=== PATIENT | female | born 1990 | race Caucasian/White ===

== ENCOUNTER 2016-07-15 11:33 | Inpatient (IN) | payer MEDICAID ==
[2016-07-15 12:16] LABS: APPEARANCE,URINE SLIGHTLY-CLOUDY; BILIRUBIN,URINE NEGATIVE (NEGATIVE); GLUCOSE, URINE NEGATIVE (NEGATIVE); KETONES,URINE NEGATIVE (NEGATIVE)
[2016-07-15 12:17] LABS: LEUKOCYTE ESTERASE,URINE NEGATIVE (NEGATIVE); NITRITE,URINE NEGATIVE (NEGATIVE); PROTEIN,URINE NEGATIVE (NEGATIVE); UROBILINOGEN,URINE NEGATIVE mg/dL (<2.0)
[2016-07-15 12:38] LABS: URINE BARBITURATES SCREEN NEGATIVE; URINE METHADONE SCREEN NEGATIVE; URINE OPIATES LOW NEGATIVE; URINE PHENCYCLIDINE SCREEN NEGATIVE
[2016-07-15] MEDS ORDERED: MAG HYDROX/AL HYDROX/SIMETH SUSP 30 ML UDCUP ONE ×2 (13:25→21:33)
[2016-07-15] MEDS ORDERED: RINGERS SOLUTION,LACTATED 300 ML IV ONE (14:52)
[2016-07-15] MEDS ORDERED: PENICILLIN G POTASSIUM 5,000,000 UNIT in DEXTROSE 5%-WATER 100 ML IV ONE (14:54)
[2016-07-15] MEDS ORDERED: OXYTOCIN/NORMAL SALINE 0 UNIT/0 ML RTUINJ ONE (14:55)
[2016-07-15] MEDS ORDERED: PENICILLIN G-K 5 MILLION UNIT VIAL ONE ×3 (14:55→21:33)
[2016-07-15] MEDS: RINGERS SOLUTION,LACTATED 1,000 ML IV PRN ×3 (16:04→20:23)
[2016-07-15] MEDS: OXYTOCIN/NORMAL SALINE 1,000 ML IV PRN ×2 (16:05→16:08)
[2016-07-15 16:23] LABS: ABSOLUTE LYMPHOCYTES (AUTO) 1.2 10^3/uL (0.5-4.7); ABSOLUTE MONOCYTES (AUTO) 1.1 10^3/uL (0.1-1.4); ABSOLUTE NEUT (AUTO) 14.4 10^3/uL (1.7-8.2); BASOPHILS % (AUTO) 0.2 % (0-2); HEMATOCRIT 30.5 % (36.0-47.0); HEMOGLOBIN 10.1 g/dL (12.0-15.5); HGB HCT DIFFERENCE -0.2; LYMPHOCYTES % (AUTO) 7.2 % (13-45); MEAN CORPUSCULAR HEMOGLOBIN 26.3 pg (27.0-33.4); MEAN CORPUSCULAR VOLUME 80 fl (80-97); MONOCYTES % (AUTO) 6.6 % (3-13); RED BLOOD COUNT 3.83 10^6/uL (3.72-5.28); RED CELL DISTRIBUTION WIDTH 16.2 % (11.5-14.0); WHITE BLOOD COUNT 16.8 10^3/uL (4.0-10.5)
--- NOTE | 2016-07-15 17:42 | L&D Progress Notes ---
PROGRESS NOTES Datetime Report Generated by CPN: 07/15/2016 17:41 PROGRESS NOTE Impression: Normal Progression of Labor Procedures: Artificial ROM Plan: Continue Present Management; Induction Informed Consent Obtained: Vaginal Delivery; Induction of Labor Vital Signs : Reviewed; Within Normal Limits Comment: 40+3ega here for IOL due to post ANTONIA and tachy with minimal variability and late decel on admission. Cvx on admission /-2. Gbs pos - next PCN due at 1900. She desires epidural. reviewed AROm with pt and pt agrees. AROM performed with clear fluid and cervical changed to 80/-1 noted. Continue with progression of labor. EFW approx 8# vtx with reassuring FWB. Anticipate VAGINAL EXAM Dilatation: 4 Dilatation: 3 Effacement: 80 Effacement: 80 Station: -1 Station: -2 Contractions: irregular MEMBRANES Pooling: Positive Membranes: Intact Amniotic Fluid Color: Clear FETUS A FHR - Baseline: 155 Monitoring: External US Variability: Moderate 6-25bpm Accelerations: 15X15 Decelerations: None FHR Category: Category I Estimated Weight (gm): 3400 Presentation: Vertex SIGNATURE SIGNATURE: [id number] Signature: Electronically signed by Audrey Hammond MD ([facility]) on 07/15/2016 at 17:41 with User ID: [email or web address]
[2016-07-15] MEDS ORDERED: PENICILLIN G-K 5 MILLION UNIT VIAL IV SCH (18:00)
--- NOTE | 2016-07-15 18:02 | L&D Current Admission ---
Current Admit Datetime Report Generated by CPN: 07/15/2016 18:00 ADMISSION INFORMATION Current Admit Date/Time: 07/15/2016 14:48 (07/15/2016 12:37:BRII Austin) Reason for Admission: Induction of Labor (07/15/2016 12:37:BRII Austin) Chief Complaint: Contractions; Other (Annotations: pain and pressure x 3 weeks worsen today beginning aroun 10 ) (07/15/2016 12:37:BRII Austin) Medications During : Vitamin (07/15/2016 12:37:BRII Austin) Meds During -Oth: ambien and buspar (07/15/2016 12:37:BRII Austin) EGA per Dates: 40.3 (07/15/2016 12:37:QS system process) Method of Arrival: Wheelchair (07/15/2016 12:37:BRII Austin) Records Available: Yes (07/15/2016 12:37:BRII Austin) General Admission Information: Reviewed; Updated; Confirmed (07/15/2016 12:37:BRII Austin) General Admission Reviewed By: Triny TERESA (07/15/2016 12:37:BRII Austin) BELONGINGS/ADVANCED DIRECTIVES Other Belongings: See [facility] Valuables consent (07/15/2016 12:37:BRII Austin) Disposition of Belongings: Kept with Patient (07/15/2016 12:37:BRII Austin) Durable Power of Merchandise Execution Leader: No (07/15/2016 12:37:BRII Austin) Living Will: No (07/15/2016 12:37:BRII Austin) Organ Donor: Yes (07/15/2016 12:37:BRII Austin) Pt Rights Information Given: Yes (07/15/2016 12:37:BRII Austin) Pt Understands Pt Rights: Yes (07/15/2016 12:37:BRII Austin) LEARNING ASSESSMENT Knowledge Level: Understands L_D Process; Understands Care Activities; Had Pre-Hospital Education (07/15/2016 12:37:BRII Austin) Barriers to Learning: None (07/15/2016 12:37:BRII Austin) Learning Readiness: Motivated (07/15/2016 12:37:BRII Austin) Learns Best By: 1 to 1 Instruction; Demonstration (07/15/2016 12:37:BRII Austin) Learning Needs: Labor and Delivery Process; Pain Management; Symptoms to Report; Treatment Plan; Medication; Diagnosis; Nutrition; Equipment; Infant Care; Community Resources; Other (07/15/2016 12:37:BRII Austin) Learning Assessment Comments: (07/15/2016 12:37:BRII Austin) DOMESTIC VIOLANCE SCREENING Dom Viol Threatened/Hurt: No (07/15/2016 12:37:BRII Austin) Hx of Abuse/Neglect past 2yrs: No (07/15/2016 12:37:BRII [place]) Feel Unsafe Going Home: No (07/15/2016 12:37:BRII Austin) Addt'l Observ Indicating Abuse: No (07/15/2016 12:37:BRII Austin) Reason Unable to Complete Screen: N/A, Screen Completed (07/15/2016 12:37:BRII Austin) Considered Personal Harm/Suicide: No (07/15/2016 12:37:BRII Austin) NUTRITIONAL/FUNCTIONAL SCREENING Problem with Appetite >5 Days: No (07/15/2016 12:37:BRII Austin) Chew/Swallow Difficulties: No (07/15/2016 12:37:BRII Austin) Inappropriate Wt Gain/Loss: No (07/15/2016 12:37:BRII Austin) Presence Skin Breakdown/Ulcer: No (07/15/2016 12:37:BRII Austin) Special Diet: No (07/15/2016 12:37:BRII Austin) Pt Requests Senior Technical Business Analyst Visit: No (07/15/2016 12:37:BRII Austin) Hx of Any of the Following?: N/A (07/15/2016 12:37:BRII Austin) New Diagnosis of: N/A (07/15/2016 12:37:BRII [place]) Requires Assist w/Ambulation: No (07/15/2016 12:37:BRII [place]) Uses Assist Device to Ambulate: No (07/15/2016 12:37:BRII [place]) Pt Requires Help w/ADL's: No (07/15/2016 12:37:BRII Austin)
--- NOTE | 2016-07-15 18:02 | L&D General Admission ---
General Admit Datetime Report Generated by CPN: 07/15/2016 18:00 INFORMATION Patient Age: 26 (05/11/2016 13:46:QS system process) EDC: 07/12/2016 00:00 (07/15/2016 12:02:BRII Austin) : 2 (07/15/2016 12:02:BRII Austin) Para: 1 (07/15/2016 12:02:BRII Austin) Term: 1 (07/15/2016 12:02:BRII Austin) Livin (07/15/2016 12:02:BRII Austin) Cesareans: 0 (07/15/2016 12:02:BRII Austin) VBACs: 0 (07/15/2016 12:02:BRII Austin) Ectopic: 0 (07/15/2016 12:02:BRII Austin) Multiple Births: 0 (07/15/2016 12:02:BRII Austin) Baby, Number in Womb: 1 (07/15/2016 12:02:Triny Camp, RNC) CARE Primary Floor Broker: [facility] (07/15/2016 12:02:Triny Camp, RN) Month of 1st Visit: december (07/15/2016 12:02:Triny Camp, RNC) Adequate Care: Yes (07/15/2016 12:02:Triny Camp, RNC) Prepregnancy Weight (lb): 208 (07/15/2016 12:02:Triny Camp, RN) Prepregnancy Weight (kg): 94.5 (07/15/2016 12:02:QS system process) Height (in): 60 (07/15/2016 13:12:QS system process) ALLERGIES Medication Allergy: No (07/15/2016 12:02:Triny Camp, RNC) Medication Allergies: No Known Allergies (07/15/2016) (07/15/2016 13:12:QS system process) Latex Allergy: No Latex Allergies (07/15/2016 12:02:Triny Camp, RNC) COMMUNICATION Primary Language: Malian (07/15/2016 12:02:Triny Camp, [facility]) Medical Tx Preferred Language: Malian (07/15/2016 12:02:Triny Camp, RN) Communication Barrier(s): None (07/15/2016 12:02:Triny Camp, [facility]) DEMOGRAPHICS Address: [address] [place] [id number] (05/11/2016 13:46:QS system process) Zipcode: [address] (05/11/2016 13:46:QS system process) Home (05/11/2016 13:46:QS system process) Work (05/11/2016 13:46:QS system process) N: [phone] (05/11/2016 13:46:QS system process) Next of Kin Name: BISMARK RINCON (05/11/2016 13:46:QS system process) Next of Kin (05/11/2016 13:46:QS system process) Next of Kin Relationship: SPO (05/11/2016 13:46:QS system process) Date of : 1990 (05/11/2016 13:46:QS system process) Marital Status: Single (05/11/2016 13:46:QS system process) Sex: Female (05/11/2016 13:46:QS system process) Occupation: Other (07/15/2016 12:02:[facility], [facility]) Race: (05/11/2016 13:46:QS system process) Ethnicity: Non- or (05/11/2016 13:46:QS system process) Evangelical: None (05/11/2016 13:46:QS system process) Education: 12 (07/15/2016 12:02:[facility]) FOB Involved: N/A (07/15/2016 12:02:[facility]) Father of Baby Name: Temple (07/15/2016 12:02:[facility]) DRUG AND ALCOHOL USE Alcohol: No (07/15/2016 12:02:[facility], [facility]) Cigarettes: Never Smoker. [id number] (07/15/2016 12:02:[facility], [facility]) Marijuana: No (07/15/2016 12:02:[facility], [facility]) Cocaine: No (07/15/2016 12:02:[facility], [facility]) Other Illicit Drugs: No (07/15/2016 12:02:[facility], [facility]) VACCINE HISTORY Influenza Vaccine: Yes (07/15/2016 12:02:BRII Austin) Pneumococcal Vaccine: No (07/15/2016 12:02:BRII Austin) Tetanus Vaccine: Yes (07/15/2016 12:02:BRII Austin) Tdap Vaccine: Yes (07/15/2016 12:02:BRII Austin) Hepatitis B Vaccine: Uncertain (07/15/2016 12:02:BRII Austin) Animal Pathologist: [facility] (07/15/2016 12:02:BRII Austin) Feeding Preference: Breast (07/15/2016 12:02:BRII Austin) Benefit of Breast Feed Discussed: Yes (07/15/2016 12:02:BRII Austin) Circumcision: N/A (07/15/2016 12:02:BRII Austin) Classes Attended: No (07/15/2016 12:02:BRII Austin) Tubal Ligation: No (07/15/2016 12:02:BRII Austin) Tubal Authorization Signed: N/A (07/15/2016 12:02:BRII Austin) Consent: N/A (07/15/2016 12:02:BRII Austin) Consent Signed: N/A (07/15/2016 12:02:BRII Austin) Pain Management Plans: Epidural (07/15/2016 12:02:BRII Austin) Plans for Labor and Delivery: None (07/15/2016 12:02:BRII Austin) Support Person: Bismark Rincon (07/15/2016 12:02:BRII Austin) Support Person Relationship: (07/15/2016 12:02:BRII Austin) Cultural/Spritual Practice: No (07/15/2016 12:02:BRII Austin) Spir/Cult Dietary Needs: No (07/15/2016 12:02:BRII Austin) LIVING SITUATION/DISCHARGE PLAN Living Arrangements: House (07/15/2016 12:02:BRII Austin) Adequate Access to:: Electric; Heat; Refrigeration; Plumbing/Running water; Phone; Transportation (07/15/2016 12:02:BRII Austin) WIC Program: Yes (07/15/2016 12:02:BRII Austin) Discharge Construction Job Titles Person: Bess Stanton (07/15/2016 12:02:BRII [place]) Person to Help after Discharge: Bess Stanton (07/15/2016 12:02:BRII [place]) Currently Using Commun Resources: Yes (07/15/2016 12:02:BRII Austin) Specify Current Resource Used: Medicaid, WIC (07/15/2016 12:02:BRII Austin) Outside Agency/Air Conditioning Service Technician: No (07/15/2016 12:02:BRII Austin) Car Seat for Discharge: Yes (07/15/2016 12:02:BRII uAstin) Adoption Requested: No (07/15/2016 12:02:BRII Austin) Pt Contact w/ Post : N/A (07/15/2016 12:02:BRII Austin) LABS Blood Type: O Positive (07/15/2016 12:02:Rica Patton RN) Hemoglobin: 10.1 L (07/15/2016 15:51:QS system process) Hematocrit: 30.5 L (07/15/2016 15:51:QS system process) MCV: 80 (07/15/2016 15:51:QS system process) Group Beta Strep: positive (07/15/2016 12:02:Rica Patton RN) Gonorrhea: Negative (07/15/2016 12:02:Rica Patton RN) Chlamydia: Negative (Annotations: Data stored by CPN on behalf of user) (07/15/2016 12:02:Rica Patton RN) RPR/VDRL: Nonreactive (07/15/2016 12:02:Rica Patton RN) Hepatitis B: Negative (07/15/2016 12:02:Rica Patton RN) Rubella: Immune (07/15/2016 12:02:Rica Patton RN) OB/PREVIOUS HISTORY Previous Procedures: Ultrasound; NST (07/15/2016 12:02:BRII Austin) Current Procedures: Ultrasound; NST (07/15/2016 12:02:BRII Austin) History of Previous : No (07/15/2016 12:02:BRII Austin) History of Gestational Diabetes: No (07/15/2016 12:02:BRII Austin) History of PIH: No (07/15/2016 12:02:BRII Austin) History of Incompetent Cervix: No (07/15/2016 12:02:BRII Austin) History of Placenta Previa/Abrup: No (07/15/2016 12:02:BRII Austin) History of Macrosomia: No (07/15/2016 12:02:BRII Austin) History of IUGR: No (07/15/2016 12:02:BRII Austin) History of Hemorrhage: No (07/15/2016 12:02:BRII Austin) History of Loss/Stillborn: No (07/15/2016 12:02:BRII Austin) History of : No (07/15/2016 12:02:BRII Austin) History of D (Rh) Sensitization: No (07/15/2016 12:02:BRII [place]) History Recurrent Loss/Stillborn: No (07/15/2016 12:02:BRII Austin) History Depression/PP Depression: Yes (07/15/2016 12:02:BRII Austin) History of Uterine Anomaly/JUAN PABLO: No (07/15/2016 12:02:BRII Austin) History of Infertility: No (07/15/2016 12:02:BRII [place]) History of ART Treatment: No (07/15/2016 12:02:BRII Austin) History of JUAN PABLO: No (07/15/2016 12:02:BRII Austin) Comments Obstetrical History: G1- 2008 male pp depression G2- no complaints (07/15/2016 12:02:BRII Austin) MEDICAL HISTORY Med Hx Diabetes: No (07/15/2016 12:02:BRII [place]) Med Hx Hypertension: No (07/15/2016 12:02:BRII [place]) Med Hx Heart Disease: No (07/15/2016 12:02:BRII [place]) Med Hx Autoimmune Disorder: No (07/15/2016 12:02:BRII Austin) Med Hx Kidney Disease/UTI: No (07/15/2016 12:02:BRII Austin) Med Hx Neurologic/Epilepsy: No (07/15/2016 12:02:BRII Ausitn) Med Hx Psychiatric Disorders: Yes (07/15/2016 12:02:BRII [place]) Med Hx Hepatitis/Liver Disease: No (07/15/2016 12:02:BRII Austin) Med Hx Varicosities/Phlebitis: No (07/15/2016 12:02:BRII Austin) Med Hx Thyroid Dysfunction: No (07/15/2016 12:02:BRII Austin) Med Hx Trauma/Violence: No (07/15/2016 12:02:BRII Austin) Med Hx Blood Transfusion: No (07/15/2016 12:02:BRII Austin) Med Hx Pulmonary (Asthma,TB): No (07/15/2016 12:02:BRII Austin) Med Hx Breast: No (07/15/2016 12:02:BRII Austin) Med Hx SERVICE OFFICER Surgery: No (07/15/2016 12:02:BRII Austin) Med Hx Hospitalization/Surgery: Yes (07/15/2016 12:02:BRII Austin) Med Hx Anesthetic Complications: No (07/15/2016 12:02:BRII Austin) Med Hx Abnormal Pap Smear: No (07/15/2016 12:02:BRII [place]) Other Medical Diseases: No (07/15/2016 12:02:BRII [place]) Med Hx Significant Family Hx: No (07/15/2016 12:02:BRII Austin) Details of Med/Surg Hx: Bowel blockage with appendectomy 1997 (07/15/2016 12:02:BRII Austin) INFECTIOUS HISTORY Inf Hx Gonorrhea: No (07/15/2016 12:02:BRII [place]) Inf Hx Chlamydia: No (07/15/2016 12:02:BRII Austin) Inf Hx Syphilis: No (07/15/2016 12:02:BRII Austin) Inf Hx HIV/AIDS: No (07/15/2016 12:02:BRII Austin) Inf Hx Human Papilloma Virus: No (07/15/2016 12:02:BRII Austin) Inf Hx Pt/Partner Genital Herpes: No (07/15/2016 12:02:BRII Austin) Inf Hx Tuberculosis/Exposure: No (07/15/2016 12:02:BRII Austin) Inf Hx Hepatitis B,C: No (07/15/2016 12:02:BRII Austin) Inf Hx Rash or Viral Illness: No (07/15/2016 12:02:BRII Austin) GENETIC HISTORY Gen Hx Age >=35 at ANTONIA: No (07/15/2016 12:02:BRII Austin) Gen Hx Thalassemia: No (07/15/2016 12:02:BRII Austin) Gen Hx Congenital Heart Defect: No (07/15/2016 12:02:Triny Torres RNC) Gen Hx Neural Tube Defect: No (07/15/2016 12:02:Triny Torres RNC) Gen Hx Down's Syndrome: No (07/15/2016 12:02:Triny Torres RNC) Gen Hx Xavier-Sachs: No (07/15/2016 12:02:Triny Torres RNC) Gen Hx Shailesh: No (07/15/2016 12:02:BRII [place]) Gen Hx Familial Dysautonomia: No (07/15/2016 12:02:Triny Torres RNC) Gen Hx Sickle Cell Disease/Trait: No (07/15/2016 12:02:Triny Torres RNC) Gen Hx Hemophilia/Blood Disorder: No (07/15/2016 12:02:Triny Torres RNC) Gen Hx Muscular Dystrophy: No (07/15/2016 12:02:Triny Torres RNC) Gen Hx Cystic Fibrosis: No (07/15/2016 12:02:BRII [place]) Gen Hx Huntingtons Chorea: No (07/15/2016 12:02:Triny Camp, RNC) Gen Hx Mental Retardation/Autism: No (07/15/2016 12:02:BRII [place]) Gen Hx Tested for Fragile X: No (07/15/2016 12:02:BRII [place]) Gen Hx Other Inher/Chromosomal: No (07/15/2016 12:02:BRII [place]) Gen Hx Maternal Metabolic DO: No (07/15/2016 12:02:BRII Austin) Gen Hx Pt Father or FOB Defect: No (07/15/2016 12:02:BRII [place]) Gen Hx Other Genetic History: No (07/15/2016 12:02:BRII Austin) Gen Hx Drugs/Meds since LMP: No (07/15/2016 12:02:BRII Austin)
[2016-07-15] MEDS ORDERED: EPHEDRINE SULFATE INJ 50 MG/1 ML AMPULE ONE (18:15)
[2016-07-15] MEDS ORDERED: FENTANYL/BUPIVACAINE/NS/PF 200 MCG/100 ML RTUINJ EPI ONE (18:16)
[2016-07-15] MEDS ORDERED: BUPIVACAINE HCL 0.25 % INJ/PF (2.5 MG/1 ML) 30 ML VIAL ONE (18:16)
[2016-07-15] MEDS ORDERED: PENICILLIN G POTASSIUM 2,500,000 UNIT in DEXTROSE 5%-WATER 50 ML IV SCH (18:55)
--- NOTE | 2016-07-15 20:02 | L&D Flow Sheet ---
LD Flowsheet Datetime Report Generated by CPN: 07/15/2016 20:00 Datetime: 07/15/2016 19:56 Pulse: 112 (QS system process) SpO2 (%): 100 (QS system process) LaborFlag: Antepartum (QS system process) Datetime: 07/15/2016 19:51 Pulse: 100 (QS system process) SpO2 (%): 100 (QS system process) LaborFlag: Antepartum (QS system process) Datetime: 07/15/2016 19:46 Pulse: 99 (QS system process) SpO2 (%): 100 (QS system process) Medications Pitocin (milliunit): Pitocin Increased to (milliunits) @ 10 (Gladis Newell, RN) LaborFlag: Antepartum (QS system process) Datetime: 07/15/2016 19:45 Pulse: 93 (QS system process) SpO2 (%): 92 (QS system process) LaborFlag: Antepartum (QS system process) Datetime: 07/15/2016 19:41 Pulse: 122 (QS system process) SpO2 (%): 100 (QS system process) LaborFlag: Antepartum (QS system process) Datetime: 07/15/2016 19:38 Pulse: 124 (QS system process) SpO2 (%): 90 (QS system process) LaborFlag: Antepartum (QS system process) Datetime: 07/15/2016 19:37 NBP Sys/Trina/Mean (mmHg): 137 (QS system process) : 60 (QS system process) : 87 (QS system process) Pulse: 133 (QS system process) LaborFlag: Antepartum (QS system process) Datetime: 07/15/2016 19:36 NBP Sys/Trina/Mean (mmHg): 121 (QS system process) : 60 (QS system process) : 85 (QS system process) Pulse: 107 (QS system process) Pulse: 93 (QS system process) SpO2 (%): 100 (QS system process) Communication Comments: report given to Bette Newell RN. Care relinquished (Rica Patton RN) LaborFlag: Antepartum (QS system process) Datetime: 07/15/2016 19:35 NBP Sys/Trina/Mean (mmHg): 123 (QS system process) : 58 (QS system process) : 83 (QS system process) Pulse: 90 (QS system process) I/O Interventions: Ward Cath Inserted (Rica Patton RN) LaborFlag: Antepartum (QS system process) Datetime: 07/15/2016 19:32 NBP Sys/Trina/Mean (mmHg): 121 (QS system process) : 61 (QS system process) : 85 (QS system process) Pulse: 91 (QS system process) LaborFlag: Antepartum (QS system process) Datetime: 07/15/2016 19:31 NBP Sys/Trina/Mean (mmHg): 121 (QS system process) : 62 (QS system process) : 84 (QS system process) Pulse: 97 (QS system process) Pulse: 84 (QS system process) SpO2 (%): 100 (QS system process) Communication Comments: no new orders received (Rica Patton RN) LaborFlag: Antepartum (QS system process) Datetime: 07/15/2016 19:28 NBP Sys/Trina/Mean (mmHg): 85 (QS system process) : 47 (QS system process) : 57 (QS system process) Pulse: 139 (QS system process) Communication Comments: Dr. Hammond at bedside (Rica Patton RN) LaborFlag: Antepartum (QS system process) Datetime: 07/15/2016 19:27 NBP Sys/Trina/Mean (mmHg): 83 (QS system process) : 49 (QS system process) : 62 (QS system process) Pulse: 137 (QS system process) LaborFlag: Antepartum (QS system process) Datetime: 07/15/2016 19:26 Pulse: 157 (QS system process) SpO2 (%): 100 (QS system process) LaborFlag: Antepartum (QS system process) Datetime: 07/15/2016 19:25 NBP Sys/Trina/Mean (mmHg): 92 (QS system process) : 53 (QS system process) : 69 (QS system process) Pulse: 131 (QS system process) LaborFlag: Antepartum (QS system process) Datetime: 07/15/2016 19:24 NBP Sys/Trina/Mean (mmHg): 100 (QS system process) : 49 (QS system process) : 70 (QS system process) Pulse: 141 (QS system process) LaborFlag: Antepartum (QS system process) Datetime: 07/15/2016 19:23 NBP Sys/Trina/Mean (mmHg): 109 (QS system process) NBP Sys/Trina/Mean (mmHg): 59 (QS system process) : 49 (QS system process) : 36 (QS system process) : 71 (QS system process) : 42 (QS system process) Pulse: 114 (QS system process) Pulse: 151 (QS system process) LaborFlag: Antepartum (QS system process) Datetime: 07/15/2016 19:21 NBP Sys/Trina/Mean (mmHg): 95 (QS system process) : 53 (QS system process) : 71 (QS system process) Pulse: 126 (QS system process) Pulse: 131 (QS system process) SpO2 (%): 100 (QS system process) LaborFlag: Antepartum (QS system process) Datetime: 07/15/2016 19:20 NBP Sys/Trina/Mean (mmHg): 79 (QS system process) : 41 (QS system process) : 56 (QS system process) Pulse: 142 (QS system process) Communication Comments: patient has increased pulse, asymptomatic (Rica Patton RN) LaborFlag: Antepartum (QS system process) Datetime: 07/15/2016 19:19 NBP Sys/Trina/Mean (mmHg): 93 (QS system process) : 55 (QS system process) : 68 (QS system process) Pulse: 133 (QS system process) LaborFlag: Antepartum (QS system process) Datetime: 07/15/2016:17 Patient Position/Activity: Right Tilt (Rica Patton, RAJ) Datetime: 07/15/2016 19:16 Pulse: 167 (QS system process) SpO2 (%): 99 (QS system process) Epidural Procedure Other: Pump Started (Rica Patton RN) LaborFlag: Antepartum (QS system process) Datetime: 07/15/2016 19:15 Uterine Activity Monitor Mode: External; Palpation (Rica Patton, RAJ) Frequency (min): 2-3 (Rica Patton RN) Quality: Mild/Moderate (Rica Patton, RN) Duration (sec): 60-70 (Rica Patton, RN) Duration Criteria: Less than Two 120 Second Contractions (Rica Patton, RAJ) Pattern: Normal: <= 5 Contractions in 10 Minutes (Rica Patton RN) Resting Tone (Palpate): Relaxed (Rica Patton, RN) Assessment A Monitor Mode: External US (Rica Patton, RN) FHR Baseline Rate : 155 (Rica Patton, RN) FHR Baseline Changes: No Baseline Change (Rica Abdi, RN) Variability: Moderate 6-25 bpm (Rica Abdi, RN) Accelerations: 15X15 (Rica Abdi, RN) Decelerations: None (Rica Abdi, RN) Datetime: 07/15/2016 19:14 NBP Sys/Trina/Mean (mmHg): 137 (QS system process) : 80 (QS system process) : 98 (QS system process) LaborFlag: Antepartum (QS system process) Datetime: 07/15/2016 19:13 NBP Sys/Trina/Mean (mmHg): 136 (QS system process) : 68 (QS system process) : 94 (QS system process) Pulse: 100 (QS system process) LaborFlag: Antepartum (QS system process) Datetime: 07/15/2016 19:12 Epidural Procedure: Cath Placed; Loading Dose (Rica Abdi, RN) Datetime: 07/15/2016 19:11 NBP Sys/Trina/Mean (mmHg): 141 (QS system process) : 80 (QS system process) : 104 (QS system process) Pulse: 111 (QS system process) Pulse: 106 (QS system process) SpO2 (%): 100 (QS system process) Epidural Procedure: Test Dose (Rica Patton, RN) LaborFlag: Antepartum (QS system process) Datetime: 07/15/2016 19:08 NBP Sys/Trina/Mean (mmHg): 138 (QS system process) : 80 (QS system process) : 102 (QS system process) Pulse: 110 (QS system process) LaborFlag: Antepartum (QS system process) Datetime: 07/15/2016 19:06 Pulse: 98 (QS system process) SpO2 (%): 99 (QS system process) LaborFlag: Antepartum (QS system process) Datetime: 07/15/2016 19:01 Pulse: 105 (QS system process) SpO2 (%): 99 (QS system process) Anesthesia Comments: Dr. Castillo at bedside (Rica Patton RN) LaborFlag: Antepartum (QS system process) Datetime: 07/15/2016 19:00 Uterine Activity Monitor Mode: External; Palpation (Rica Patton, RN) Frequency (min): 1.5-2 (Rica Abdi, RN) Quality: Mild/Moderate (Rica Abdi, RN) Duration (sec): 60-70 (Rica Abdi, RN) Duration Criteria: Less than Two 120 Second Contractions (Rica Abdi, RN) Pattern: Normal: <= 5 Contractions in 10 Minutes (Rica Abdi, RN) Resting Tone (Palpate): Relaxed (Rica Abdi, RN) Assessment A Monitor Mode: External US (Rica Patton, RN) FHR Baseline Rate : 155 (Ricaleon Patton, RN) FHR Baseline Changes: No Baseline Change (Rica Abdi, RN) Variability: Moderate 6-25 bpm (Rica Abdi, RN) Accelerations: 15X15 (Rica Abdi, RN) Decelerations: None (Rica Abdi, RN) Medications Pitocin (milliunit): Pitocin Remains (milliunits) @ (Annotations: 8) (Rica Abdi, RN) Datetime: 07/15/2016 18:56 Pulse: 102 (QS system process) SpO2 (%): 98 (QS system process) LaborFlag: Antepartum (QS system process) Datetime: 07/15/2016 18:55 Pulse: 202 (QS system process) SpO2 (%): 69 (QS system process) LaborFlag: Antepartum (QS system process) Datetime: 07/15/2016 18:54 NBP Sys/Trina/Mean (mmHg): 135 (QS system process) : 65 (QS system process) : 92 (QS system process) Pulse: 104 (QS system process) LaborFlag: Antepartum (QS system process) Datetime: 07/15/2016 18:53 Anesthesia Comments: sitting for epidural (Rica Abdi, RN) Datetime: 07/15/2016 18:52 Procedure TIME OUT Procedure Verify: Correct Patient Identity; Correct Side and Site are Marked; Accurate Procedure Consent Form; Agreement on Procedure to be Done; Correct Patient Position; Relevant Images and Results are Properly Labeled and Displayed; Addressed Need to Administer Antibiotics or Fluids for Irrigation; Safety Precautions Based on Patient History or Medication Use (Rica Patton RN) Anesthesia Anesthesia Plans: Epidural (Rica Patton, RN) Datetime: 07/15/2016 18:48 Anesthesia Comments: Dr. Anna notified of patient's request for epidural (Rica Patton, RN) Datetime: 07/15/2016 18:45 Uterine Activity Monitor Mode: External; Palpation (Rica Abdi, RN) Frequency (min): 2 (Rica Abdi, RN) Quality: Mild/Moderate (Rica Abdi, RN) Duration (sec): 50-60 (Rica Abdi, RN) Duration Criteria: Less than Two 120 Second Contractions (Rica Abdi, RN) Pattern: Normal: <= 5 Contractions in 10 Minutes (Rica Abdi, RN) Resting Tone (Palpate): Relaxed (Rica Abdi, RN) Assessment A Monitor Mode: External US (Rica Patton, RN) FHR Baseline Rate : 155 (Rica Patton RN) FHR Baseline Changes: No Baseline Change (Rica Patton RN) Variability: Moderate 6-25 bpm (Rica Patton, RN) Accelerations: 15X15 (Rica Patton RN) Decelerations: None (Rica Patton, RN) Medications Pitocin (milliunit): Pitocin Remains (milliunits) @ (Annotations: 8) (Rica Patton, RN) Datetime: 07/15/2016 18:38 NBP Sys/Trina/Mean (mmHg): 136 (QS system process) : 59 (QS system process) : 85 (QS system process) Pulse: 93 (QS system process) Antibiotics: Penicillin IV (Units) @ 2,500,000 (Rica Patton RN) LaborFlag: Antepartum (QS system process) Datetime: 07/15/2016 18:30 Uterine Activity Monitor Mode: External; Palpation (Rica Patton, RN) Frequency (min): 2-4 (Rica Patton, RN) Quality: Mild/Moderate (Rica Abdi, RN) Duration (sec): 50-70 (Rica Patton, RN) Duration Criteria: Less than Two 120 Second Contractions (Rica Abdi, RN) Pattern: Normal: <= 5 Contractions in 10 Minutes (Rica Patton, RN) Resting Tone (Palpate): Relaxed (Rica Abdi, RN) Assessment A Monitor Mode: External US (Rica Patton, RN) FHR Baseline Rate : 150 (Rica Patton, RN) FHR Baseline Changes: No Baseline Change (Rica Patton, RN) Variability: Moderate 6-25 bpm (Ricaleon Patton, RN) Accelerations: 15X15 (Rica Abdi, RN) Decelerations: None (Rica Patton, RN) Medications Pitocin (milliunit): Pitocin Remains (milliunits) @ (Annotations: 8) (Rica Patton, RN) Datetime: 07/15/2016 18:15 Uterine Activity Monitor Mode: External; Palpation (Rica Patton RN) Frequency (min): 2-3 (Rica Patton RN) Quality: Mild/Moderate (Rica Abdi, RN) Duration (sec): 50-70 (Rica Patton, RN) Duration Criteria: Less than Two 120 Second Contractions (Rica Patton, RN) Pattern: Normal: <= 5 Contractions in 10 Minutes (Rica Patton, RN) Resting Tone (Palpate): Relaxed (Rica Patton, RN) Assessment A Monitor Mode: External US (Rica Patton, RN) FHR Baseline Rate : 150 (Rica Patton, RN) FHR Baseline Changes: No Baseline Change (Rica Patton, RN) Variability: Moderate 6-25 bpm (Rica Patton, RN) Accelerations: 15X15 (Rica Abdi, RN) Decelerations: None (Rica Abdi, RN) Medications Pitocin (milliunit): Pitocin Remains (milliunits) @ (Annotations: 8) (Rica Patton, RN) Datetime: 07/15/2016 18:08 NBP Sys/Trina/Mean (mmHg): 122 (QS system process) : 72 (QS system process) : 88 (QS system process) Pulse: 75 (QS system process) LaborFlag: Antepartum (QS system process) Datetime: 07/15/2016 18:00 Uterine Activity Monitor Mode: External; Palpation (Rica Patton RN) Frequency (min): 2-2.5 (Rica Patton RN) Quality: Mild/Moderate (Rica Patton RN) Duration (sec): 60-70 (Rica Patton RN) Duration Criteria: Less than Two 120 Second Contractions (Rica Patton RN) Pattern: Normal: <= 5 Contractions in 10 Minutes (Rica Patton RN) Resting Tone (Palpate): Relaxed (Rica Abdi, RN) Assessment A Monitor Mode: External US (Rica Abdi, RN) FHR Baseline Rate : 150 (Rica Patton, RN) FHR Baseline Changes: No Baseline Change (Rica Abdi, RN) Variability: Moderate 6-25 bpm (Rica Abdi, RN) Accelerations: 15X15 (Rica Abdi, RN) Decelerations: None (Rica Abdi, RN) Medications Pitocin (milliunit): Pitocin Increased to (milliunits) @ (Annotations: 8) (Rica Abdi, RN) Datetime: 07/15/2016 17:58 Hygiene: Underpad Changed (Rica Abdi, RN) Datetime: 07/15/2016 17:54 NBP Sys/Trina/Mean (mmHg): 114 (QS system process) : 70 (QS system process) : 86 (QS system process) Pulse: 94 (QS system process) LaborFlag: Antepartum (QS system process) Datetime: 07/15/2016 17:45 Uterine Activity Monitor Mode: External; Palpation (Rica Abdi, RN) Frequency (min): 2-4.5 (Rica Abdi, RN) Quality: Mild/Moderate (Rica Abdi, RN) Duration (sec): 60-70 (Rica Abdi, RN) Duration Criteria: Less than Two 120 Second Contractions (Rica Abdi, RN) Pattern: Normal: <= 5 Contractions in 10 Minutes (Rica Abdi, RN) Resting Tone (Palpate): Relaxed (Rica Abdi, RN) Assessment A Monitor Mode: External US (Rica Abdi, RN) FHR Baseline Rate : 150 (Rica Abdi, RN) FHR Baseline Changes: No Baseline Change (Rica Abdi, RN) Variability: Moderate 6-25 bpm (Rica Abdi, RN) Accelerations: 15X15 (Rica Abdi, RN) Decelerations: None (Rica Abdi, RN) Medications Pitocin (milliunit): Pitocin Remains (milliunits) @ (Annotations: 6) (Rica Abdi, RN) Datetime: 07/15/2016 17:40 Anesthesia Comments: bolus opened for patient's epidural (Rica Abdi, RN) Datetime: 07/15/2016 17:39 NBP Sys/Trina/Mean (mmHg): 130 (QS system process) : 80 (QS system process) : 96 (QS system process) Pulse: 97 (QS system process) LaborFlag: Antepartum (QS system process) Datetime: 07/15/2016 17:35 Vaginal Exam Dilatation (cm): 4.0 (Rica Patton RN) Effacement (%): 80 (Rica Patton RN) Station: -1 (Rica Patton RN) Exam by: Dr. Hammond (Rica Patton RN) Membrane Status: Ruptured (Rica Patton RN) Membranes Rupture Method: Artificial (Rica Patton RN) Amniotic Fluid Color: Clear (Rica Patton RN) Amniotic Fluid Amount: Small (Rica Patton RN) Vaginal Bleeding: None (Rica Patton RN) Cervix, Consistency: Soft (Rica Patton RN) Cervix, Position: Midposition (Rica Patton RN) Datetime: 07/15/2016 17:30 Uterine Activity Monitor Mode: External; Palpation (Rica Abdi, RN) Frequency (min): 2-3.5 (Rica Abdi, RN) Quality: Mild/Moderate (Rica Abdi, RN) Duration (sec): 50-70 (Rica Abdi, RN) Duration Criteria: Less than Two 120 Second Contractions (Rica Abdi, RN) Pattern: Normal: <= 5 Contractions in 10 Minutes (Rica Abdi, RN) Resting Tone (Palpate): Relaxed (Rica Abdi, RN) Assessment A Monitor Mode: External US (Rica Abdi, RN) FHR Baseline Rate : 150 (Rica Abdi, RN) FHR Baseline Changes: No Baseline Change (Rica Abdi, RN) Variability: Moderate 6-25 bpm (Rica Abdi, RN) Accelerations: 15X15 (Rica Abdi, RN) Decelerations: None (Rica Abdi, RN) Medications Pitocin (milliunit): Pitocin Remains (milliunits) @ (Annotations: 6) (Rica Abdi, RN) Datetime: 07/15/2016 17:24 NBP Sys/Trina/Mean (mmHg): 115 (QS system process) : 62 (QS system process) : 81 (QS system process) Pulse: 89 (QS system process) LaborFlag: Antepartum (QS system process) Datetime: 07/15/2016 17:15 Uterine Activity Monitor Mode: External; Palpation (Rica Patton RN) Frequency (min): 2.5-3 (Rica Patton RN) Quality: Mild/Moderate (Rica Patton RN) Duration (sec): 50-70 (Rica Patton, RN) Duration Criteria: Less than Two 120 Second Contractions (Rica Patton, RN) Pattern: Normal: <= 5 Contractions in 10 Minutes (Rica Patton, RN) Resting Tone (Palpate): Relaxed (Rica Patton, RN) Assessment A Monitor Mode: External US (Rica Patton, RN) FHR Baseline Rate : 145 (Rica Patton, RN) FHR Baseline Changes: No Baseline Change (Rica Patton, RN) Variability: Moderate 6-25 bpm (Rica Patton, RN) Accelerations: 15X15 (Rica Patton, RN) Decelerations: None (Rica Patton, RN) Medications Pitocin (milliunit): Pitocin Remains (milliunits) @ (Annotations: 6) (Rica Patton, RN) Datetime: 07/15/2016 17:09 NBP Sys/Trina/Mean (mmHg): 125 (QS system process) : 77 (QS system process) : 94 (QS system process) Pulse: 93 (QS system process) LaborFlag: Antepartum (QS system process) Datetime: 07/15/2016 17:00 Uterine Activity Monitor Mode: External; Palpation (Rica Patton RN) Frequency (min): 2-5 (Rica Patton RN) Quality: Mild/Moderate (Rica Patton RN) Duration (sec): 50-70 (Rica Patton RN) Duration Criteria: Less than Two 120 Second Contractions (Rica Patton RN) Pattern: Normal: <= 5 Contractions in 10 Minutes (Rica Patton RN) Resting Tone (Palpate): Relaxed (Rica Abdi, RN) Assessment A Monitor Mode: External US (Rica Abdi, RN) FHR Baseline Rate : 150 (Rica Abdi, RN) FHR Baseline Changes: No Baseline Change (Rica Abdi, RN) Variability: Moderate 6-25 bpm (Rica Abdi, RN) Accelerations: 15X15 (Rica Abdi, RN) Decelerations: None (Rica Abdi, RN) Medications Pitocin (milliunit): Pitocin Increased to (milliunits) @ (Annotations: 6) (Rica Abdi, RN) Datetime: 07/15/2016 16:54 NBP Sys/Trina/Mean (mmHg): 121 (QS system process) : 73 (QS system process) : 92 (QS system process) Pulse: 86 (QS system process) LaborFlag: Antepartum (QS system process) Datetime: 07/15/2016 16:45 Uterine Activity Monitor Mode: External; Palpation (Rica Patton RN) Frequency (min): 2-4 (Rica Patton RN) Quality: Mild/Moderate (Rica Patton RN) Duration (sec): 60-80 (Rica Patton RN) Duration Criteria: Less than Two 120 Second Contractions (Rica Patton RN) Pattern: Normal: <= 5 Contractions in 10 Minutes (Rica Patton RN) Resting Tone (Palpate): Relaxed (Rica Patton RN) Contraction Comments: irritability (Rica Patton RN) Assessment A Monitor Mode: External US (Rica Patton, RN) FHR Baseline Rate : 140 (Rica Patton, RN) FHR Baseline Changes: No Baseline Change (Rica Patton, RN) Variability: Moderate 6-25 bpm (Rica Patton, RN) Accelerations: 15X15 (Rica Patton, RN) Decelerations: None (Rica Patton, RN) Medications Pitocin (milliunit): Pitocin Remains (milliunits) @ (Annotations: 4) (Rica Patton, RN) Datetime: 07/15/2016 16:38 NBP Sys/Trina/Mean (mmHg): 133 (QS system process) : 78 (QS system process) : 96 (QS system process) Pulse: 95 (QS system process) LaborFlag: Antepartum (QS system process) Datetime: 07/15/2016 16:30 Uterine Activity Monitor Mode: External; Palpation (Rica Patton RN) Frequency (min): 5 (Rica Patton RN) Quality: Mild/Moderate (Rica Patton RN) Duration (sec): 70-80 (Rica Patton RN) Duration Criteria: Less than Two 120 Second Contractions (Rica Patton RN) Pattern: Normal: <= 5 Contractions in 10 Minutes (Rica Patton RN) Resting Tone (Palpate): Relaxed (Rica Patton RN) Contraction Comments: irritability (Rica Patton RN) Assessment A Monitor Mode: External US (Rica Patton, RN) FHR Baseline Rate : 140 (Rica Patton, RN) FHR Baseline Changes: No Baseline Change (Rica Patton, RN) Variability: Moderate 6-25 bpm (Rica Patton, RN) Accelerations: 15X15 (Rica Patton, RN) Decelerations: None (Rica Patton, RN) Medications Pitocin (milliunit): Pitocin Increased to (milliunits) @ (Annotations: 4) (Rica Patton, RN) Datetime: 07/15/2016 16:23 NBP Sys/Trina/Mean (mmHg): 121 (QS system process) : 68 (QS system process) : 89 (QS system process) Pulse: 90 (QS system process) LaborFlag: Antepartum (QS system process) Datetime: 07/15/2016 16:15 Uterine Activity Monitor Mode: External; Palpation (Rica Patton, RN) Frequency (min): 3-4.5 (Rica Patton, RN) Quality: Mild (Rica Patton, RN) Duration (sec): 60-80 (Rica Patton, RN) Duration Criteria: Less than Two 120 Second Contractions (Rica Patton, RN) Pattern: Normal: <= 5 Contractions in 10 Minutes (Rica Patton, RN) Resting Tone (Palpate): Relaxed (Rica Patton, RN) Contraction Comments: irritability (Rica Patton, RN) Assessment A Monitor Mode: External US (Rica Patton, RN) FHR Baseline Rate : 145 (Rica Patton, RN) FHR Baseline Changes: No Baseline Change (Rica Patton, RN) Variability: Moderate 6-25 bpm (Rica Patton, RN) Accelerations: 15X15 (Rica Patton, RN) Decelerations: None (Rica Patton, RN) Medications Pitocin (milliunit): Pitocin Remains (milliunits) @ (Annotations: 2) (Rica Patton, RN) Datetime: 07/15/2016 16:08 NBP Sys/Trina/Mean (mmHg): 125 (QS system process) : 69 (QS system process) : 93 (QS system process) Pulse: 90 (QS system process) LaborFlag: Antepartum (QS system process) Datetime: 07/15/2016 16:00 Uterine Activity Monitor Mode: External; Palpation (Rica Patton, RN) Frequency (min): 2-3 (Rica Patton, RN) Quality: Mild (Rica Patton, RN) Duration (sec): 50-70 (Rica Patton, RN) Duration Criteria: Less than Two 120 Second Contractions (Rica Patton, RN) Pattern: Normal: <= 5 Contractions in 10 Minutes (Rica Patton, RN) Resting Tone (Palpate): Relaxed (Rica Patton, RN) Contraction Comments: irritability (Rica Patton, RN) Assessment A Monitor Mode: External US (Rica Patton, RN) FHR Baseline Rate : 145 (Rica Patton, RN) Variability: Moderate 6-25 bpm (Rica Patton, RN) Accelerations: 15X15 (Ricaleon Patton, RN) Decelerations: None (Rica Abdi, RN) Medications Pitocin (milliunit): Pitocin Started (milliunits) @ 2; Pitocin 20 Units in 1000ml NS (Rica Abdi, RN) Datetime: 07/15/2016 15:58 Patient Care IV/Blood Work: Labs Drawn (Rica Abdi, RN) Datetime: 07/15/2016 15:53 NBP Sys/Trina/Mean (mmHg): 118 (QS system process) : 71 (QS system process) : 89 (QS system process) Pulse: 103 (QS system process) LaborFlag: Antepartum (QS system process) Datetime: 07/15/2016 15:50 Communication Comments: order received from Dr. Hammond to start Pitocin 20 units in 1L NS at 2 milliunits/min, increase by 2 milliunits/min every 15 minutes until a max of 20 milliunits/min or adequate labor is reached (Rica Patton RN) Datetime: 07/15/2016 15:45 Uterine Activity Monitor Mode: External; Palpation (Rica Abdi, RN) Frequency (min): irritability (Ricaleon Patton, RN) Quality: Mild (Rica Abdi, RN) Duration Criteria: Less than Two 120 Second Contractions (Rica Abdi, RN) Pattern: Normal: <= 5 Contractions in 10 Minutes (Rica Abdi, RN) Resting Tone (Palpate): Relaxed (Rica Abdi, RN) Assessment A Monitor Mode: External US (Rica Abdi, RN) FHR Baseline Rate : 145 (Rica Abdi, RN) FHR Baseline Changes: No Baseline Change (Rica Abdi, RN) Variability: Moderate 6-25 bpm (Rica Abdi, RN) Accelerations: 15X15 (Rica Abdi, RN) Decelerations: None (Rica Abdi, RN) Datetime: 07/15/2016 15:15 Uterine Activity Monitor Mode: External; Palpation (Rica Patton, RN) Quality: Mild (Rica Patton, RN) Duration Criteria: Less than Two 120 Second Contractions (Rica Patton, RN) Pattern: Normal: <= 5 Contractions in 10 Minutes (Rica Patton, RN) Resting Tone (Palpate): Relaxed (Rica Patton, RN) Contraction Comments: irritability (Rica Patton, RN) Assessment A Monitor Mode: External US (Rica Patton, RN) FHR Baseline Rate : 140 (Rica Patton, RN) FHR Baseline Changes: No Baseline Change (Rica Patton, RN) Variability: Moderate 6-25 bpm (Rica Patton, RN) Accelerations: 15X15 (Rica Patton, RN) Decelerations: None (Rica Patton, RN) Datetime: 07/15/2016 15:02 NBP Sys/Trina/Mean (mmHg): 123 (QS system process) : 66 (QS system process) : 93 (QS system process) Pulse: 95 (QS system process) LaborFlag: Antepartum (QS system process) Datetime: 07/15/2016 15:00 Antibiotics: Penicillin IV (Units) @ (Annotations: 5,000,000) (Rica Patton, RN) Datetime: 07/15/2016 14:46 Communication Comments: report received from S. Camp, RN [facility] Datetime: 07/15/2016 14:45 Uterine Activity Monitor Mode: External; Palpation (Triny Camp, RNC) Monitor Interventions for UA: [place] Adjusted (Triny Camp, RNC) Frequency (min): irregular (Triny Camp, RNC) Quality: Mild (Triny Camp, RNC) Duration (sec): 40-60 (Triny Camp, RNC) Duration Criteria: Less than Two 120 Second Contractions (Triny Camp, RNC) Pattern: Normal: <= 5 Contractions in 10 Minutes (Triny Camp, RNC) Resting Tone (Palpate): Relaxed (Triny Camp, RNC) Assessment A Monitor Mode: External US; Auscultation (Triny Camp, RNC) FHR Baseline Rate : 150 (Triny Camp, RNC) FHR Baseline Changes: No Baseline Change (Triny Camp, RNC) Variability: Moderate 6-25 bpm (Triny Camp, RNC) Accelerations: 15X15 (Triny Camp, RNC) Decelerations: Variable (Triny Camp, RNC) Datetime: 07/15/2016 14:44 Communication Communication: Report Given to @ M Abdi RN (Triny Camp, RNC) Communication Comments: bedside report given care relinquished (Triny Camp, RNC) Datetime: 07/15/2016 14:30 Communication Communication: Provider Orders Received (Triny Camp, RNC) Communication Comments: Admit order received (Triny Camp, RNC) Datetime: 07/15/2016 13:33 Communication Communication: Provider Orders Received; Report Given to @ Dr Hammond (Triny Camp, RNC) Communication Comments: Call placed to Dr Hammond with report of normal fhr baseline, moderate variability and accels. Plan discussed with order for 40 min ambulation ordered (Triny Camp, RNC) Datetime: 07/15/2016 13:30 Uterine Activity Monitor Mode: External; Palpation (Triny Camp, RNC) Frequency (min): irregular (Triny Camp, RNC) Quality: Mild (Triny Camp, RNC) Duration (sec): 30-50 (Triny Camp, RNC) Duration Criteria: Less than Two 120 Second Contractions (Triny Camp, RNC) Pattern: Normal: <= 5 Contractions in 10 Minutes (Triny Camp, RNC) Resting Tone (Palpate): Relaxed (Triny Camp, RNC) Assessment A Monitor Mode: External US; Auscultation (Triny Camp, RNC) FHR Baseline Rate : 155 (Triny Camp, RNC) FHR Baseline Changes: No Baseline Change (Triny Camp, RNC) Variability: Moderate 6-25 bpm (Triny Camp, RNC) Accelerations: 15X15 (Triny Camp, RNC) Decelerations: None (Triny Camp, RNC) Datetime: 07/15/2016 13:27 Antiemetics/Antacids: Maalox PO (ml) @ 30 (Barbara Shorty, RNC) Datetime: 07/15/2016 13:08 I/O Interventions: Up to BR (Triny Camp, RNC) Datetime: 07/15/2016 13:03 NBP Sys/Trina/Mean (mmHg): 113 (QS system process) : 69 (QS system process) : 84 (QS system process) Pulse: 89 (QS system process) LaborFlag: Antepartum (QS system process) Datetime: 07/15/2016 13:00 Uterine Activity Monitor Mode: External; Palpation (Triny Camp, RNC) Frequency (min): irregular (Triny Camp, RNC) Quality: Mild (Triny Camp, RNC) Duration (sec): 50-60 (Triny Camp, RNC) Resting Tone (Palpate): Relaxed (Triny Camp, RNC) Assessment A Monitor Mode: External US; Auscultation (Triny Camp, RNC) FHR Baseline Rate : 145 (Triny Camp, RNC) FHR Baseline Changes: No Baseline Change (Triny Camp, RNC) Variability: Moderate 6-25 bpm (Triny Camp, RNC) Accelerations: 15X15 (Triny Camp, RNC) Decelerations: None (Triny Camp, RNC) Datetime: 07/15/2016 12:37 Frequency (min): 8-9 (Triny Camp, RNC) Quality: Mild (Triny Camp, RNC) Duration (sec): 50-70 (Triny Camp, RNC) Resting Tone (Palpate): Relaxed (Triny Camp, RNC) Pain Pain Scale: 2 (Triny Camp, RNC) Pain Presence: Intermittent (Triny Camp, RNC) Pain Type: Contraction (Triny Camp, RNC) Pain Location: Back (Triny Camp, RNC) Pain Goal: 2 (Triny Camp, RNC) Pain Relief Measures: Comfort Measures (Triny Camp, RNC) Pain Coping: Breathing Through Contractions (Triny Camp, RNC) Vaginal Exam Dilatation (cm): 3.0 (Triny Camp, RNC) Exam by: dimitri Hammond (Triny Camp, RNC) Membrane Status: Intact (Triny Camp, RNC) Vaginal Bleeding: None (Triny Camp, RNC) Soto's Score Dilatation (cm): 3-4 cms (Triny Camp, RNC) Effacement: 60-70_ effaced (Triny Camp, RNC) Station: minus 1 to 0 (Triny Camp, RNC) Consistency: Soft (Triny Camp, RNC) Position: Midposition (Triny Camp, RNC) Total Soto's Score: 9 (QS system process) : 9-14 = Usually no failure for induction (QS system process) Maternal Assessment Level of Consciousness: Fully Conscious (Triny Camp, RNC) DTR's/Clonus: DTRs 2+; No Clonus (Triny Camp, RNC) Headache: Denies (Triny Camp, RNC) Breath Sounds, Left: Clear and Equal (Triny Camp, RNC) Breath Sounds, Right: Clear and Equal (Triny Camp, RNC) Nausea/Vomiting: Denies (Triny Camp, RNC) RUQ Epigastric Pain: Denies (Triny Camp, RNC) LaborFlag: Antepartum (QS system process) Datetime: 07/15/2016 12:36 Patient Position/Activity: HOB Lowered; Right Extreme (Triny Camp, RNC) Patient Care Comments: toco and u/s adjusted (Triny Camp, RNC) Datetime: 07/15/2016 12:34 NBP Sys/Trina/Mean (mmHg): 129 (QS system process) : 75 (QS system process) : 96 (QS system process) Pulse: 92 (QS system process) LaborFlag: Antepartum (QS system process) Datetime: 07/15/2016 12:14 Patient Care IV/Blood Work: IV Started; IV Bolus Started (Triny Camp, RNC) Patient Care Comments: lr 1000 ml started with 18 g jelco on firsta attempt (Triny Camp, RNC) Datetime: 07/15/2016 12:13 Patient Care IV/Blood Work: IV Started (Triny Camp, RNC) Communication Communication: RN at Bedside; Provider at Bedside (Triny Camp, RNC) Communication Comments: Dr Val Brownlee CNM at bedside for assessment (Triny Camp, RNC) Datetime: 07/15/2016 12:04 Patient Position/Activity: HOB Lowered; Left Extreme (Trniy Camp, RNC) I/O Interventions: Popsicle (Triny Camp, RNC) Datetime: 07/15/2016 12:03 NBP Sys/Trina/Mean (mmHg): 127 (QS system process) : 72 (QS system process) : 92 (QS system process) Pulse: 97 (QS system process) LaborFlag: Antepartum (QS system process) Datetime: 07/15/2016 12:02 Temperature (F): 99.3 (Triny Camp, RNC) Temperature (C): 37.4 (QS system process) LaborFlag: Antepartum (QS system process) Datetime: 07/15/2016 12:00 Vital Signs Stage of : Antepartum (Rica Patton, RAJ)
[2016-07-15] MEDS ORDERED: MISOPROSTOL 0.2 MG TABLET ONE (22:08)
[2016-07-15] MEDS ORDERED: LIDOCAINE 1% INJ-PF (10 MG/ML) 30 ML SDV ONE (22:09)
[2016-07-15] MEDS ORDERED: OXYTOCIN/NORMAL SALINE 20 UNIT/1,000 ML RTUINJ ONE (22:09)
[2016-07-16] MEDS ORDERED: NA PHOS,M-B/NA PHOS,DI-BA (ADULT) 133 ML ENEMA PR PRN (00:08)
[2016-07-16] MEDS ORDERED: DIPH/PERTUSS(ACELL)/TETANUS VAC/PF 0.5 ML SYR (>=10YO) IM PRN (00:08)
[2016-07-16] MEDS ORDERED: ACETAMINOPHEN WITH CODEINE #3 TABLET PO PRN ×2 (00:08)
[2016-07-16] MEDS ORDERED: PROMETHAZINE HCL INJ 25 MG/1 ML VIAL IV PRN (00:08)
[2016-07-16] MEDS ORDERED: DIPHENHYDRAMINE HCL 25 MG CAPSULE PO PRN (00:08)
[2016-07-16] MEDS ORDERED: MEASLES,MUMPS&RUBELLA VACC/PF 0.5 ML VIAL SUBCUT PRN (00:08)
[2016-07-16] MEDS ORDERED: DIBUCAINE 1% OINTMENT 28 GM TP PRN (00:08)
[2016-07-16] MEDS ORDERED: GLYCERIN/WITCH HAZEL LEAF 1 EACH MED..PAD TP PRN (00:08)
[2016-07-16] MEDS ORDERED: PSEUDOEPHEDRINE HCL 30 MG TABLET PO PRN (00:08)
[2016-07-16] MEDS ORDERED: PROMETHAZINE HCL 25 MG SUPP.RECT PR PRN (00:08)
[2016-07-16] MEDS ORDERED: ZOLPIDEM TARTRATE 5 MG TABLET PO PRN (00:08)
[2016-07-16] MEDS ORDERED: PROMETHAZINE HCL 25 MG TABLET PO PRN (00:08)
[2016-07-16] MEDS ORDERED: MAGNESIUM HYDROXIDE SUSP 30 ML UDCUP PO PRN (00:08)
[2016-07-16] MEDS ORDERED: ACETAMINOPHEN 650 MG SUPP.RECT PR PRN (00:08)
[2016-07-16] MEDS ORDERED: OXYTOCIN/NORMAL SALINE 1,000 ML IV PRN (00:08)
[2016-07-16] MEDS ORDERED: BENZOCAINE/MENTHOL AEROSOL SPRAY 56 ML TOP PRN (00:08)
[2016-07-16] MEDS ORDERED: CEFAZOLIN 2 GM/D5W RTU 2 GM/50 ML RTUPB IV ONE ×2 (00:21→00:30)
[2016-07-16] MEDS ORDERED: IBUPROFEN 800 MG TABLET ONE (00:30)
[2016-07-16] MEDS ORDERED: CEFAZOLIN 2 GM/D5W RTU 50 ML IV SCH (00:30)
[2016-07-16] MEDS ORDERED: FAMOTIDINE 20 MG TABLET ONE (05:50)
[2016-07-16] MEDS: FAMOTIDINE 20 MG TABLET PO SCH ×2 (05:52→22:08)
--- NOTE | 2016-07-16 08:01 | L&D Flow Sheet ---
LD Flowsheet Datetime Report Generated by CPN: 07/16/2016 08:00 Datetime: 07/16/2016 05:54 NBP Sys/Trina/Mean (mmHg): 124 (QS system process) : 64 (QS system process) : 88 (QS system process) Pulse: 68 (QS system process) Datetime: 07/16/2016 02:20 Stage of : Recovery (Gladis Newell, RN) Datetime: 07/16/2016 01:55 Stage of : Recovery (Gladis Newell, RN) Respirations: 16 (Gladis Newell, RN) Temperature (F): 98.1 (Gladis Newell, RN) Temperature (C): 36.7 (QS system process) Pain Scale: 0 (Gladis Newell, RN) Pain Presence: None/Denies (Gladis Newlel, RN) Pain Type: N/A (Gladis Newell, RN) Datetime: 07/16/2016 01:40 Stage of : Recovery (Gladis Newell, RN) Datetime: 07/16/2016 01:35 Stage of : Recovery (Gladis Newell, RN) Pain Scale: 0 (Gladis Newell, RN) Pain Presence: None/Denies (Gladis Newell, RN) Pain Type: N/A (Gladis Newell, RN) Datetime: 07/16/2016 01:25 Stage of : Recovery (Gladis Newell, RN) Pain Scale: 1 (Gladis Newell, RN) Pain Presence: Intermittent (Gladis Newell, RN) Pain Type: Pressure (Gladis Newell, RN) Pain Location: Perineum (Gladis Newell, RN) Datetime: 07/16/2016 01:10 Stage of : Recovery (Gladis Newell, RN) Respirations: 18 (Gladis Newell, RN) Temperature (F): 99.4 (Gladis Newell, RN) Temperature (C): 37.4 (QS system process) Temperature Route: Oral (Gladis Newell, RN) Pain Scale: 1 (Gladis Newell, RN) Pain Presence: Intermittent (Gladis Newell, RN) Pain Type: Pressure (Gladis Newell, RN) Pain Location: Perineum (Gladis Newell, RN) Datetime: 07/16/2016 00:55 Stage of : Recovery (Gladis Newell, RN) Respirations: 18 (Gladis Newell, RN) Pain Scale: 1 (Gladis Newell, RN) Pain Presence: Intermittent (Gladis Newell, RN) Pain Type: Pressure (Gladis Newell, RN) Pain Location: Perineum (Gladis Newell, RN) Datetime: 07/16/2016 00:31 Pain Relief Measures: Pain Medication Given (Gladis Newell, RN) Datetime: 07/16/2016 00:25 Stage of : Recovery (Gladis Newell, RN) Datetime: 07/16/2016 00:11 NBP Sys/Trina/Mean (mmHg): 133 (QS system process) : 80 (QS system process) : 100 (QS system process) Pulse: 89 (QS system process) Datetime: 07/16/2016 00:10 Stage of : Recovery (Gladis Newell, RN) Respirations: 18 (Gladis Newell, RN) Pain Scale: 0 (Gladis Newell, RN) Pain Presence: None/Denies (Gladis Newell, RN) Pain Type: N/A (Gladis Newell, RN) Datetime: 07/15/2016 23:56 NBP Sys/Trina/Mean (mmHg): 127 (QS system process) : 83 (QS system process) : 98 (QS system process) Pulse: 97 (QS system process) Datetime: 07/15/2016 23:55 Stage of : Recovery (Gladis Newell, RN) Respirations: 18 (Gladis Newell, RN) Datetime: 07/15/2016 23:51 Stage of : Recovery (Gladis Newell, RN) Stage 2 Comments: Placenta delivered and inspected by Dr Hammond, trailing membranes manually removed (Gladis Newell, RN) Datetime: 07/15/2016 23:47 Stage 2 Comments: Viable female infant delivert by Dr Hammond (Gladis Newell, RN) Datetime: 07/15/2016 23:45 Stage of : Labor (Gladis Newell, RN) Monitor Mode: External (Gladis Newell, RN) Frequency (min): 1-1.5 (Gladis Newell, RN) Quality: Strong (Gladis Newell, RN) Duration (sec): 50-70 (Gladis Newell, RN) Pattern: Normal: <= 5 Contractions in 10 Minutes (Gladis Newell, RN) Resting Tone (Palpate): Relaxed (Gladis Newell, RN) Monitor Mode: External US (Gladis Newell, RN) FHR Baseline Rate : 175 (Gladis Newell, RN) FHR Baseline Changes: Tachycardia (Gladis Newell, RN) Variability: Moderate 6-25 bpm (Gladis Newell, RN) Accelerations: 10X10 (Gladis Newell, RN) Decelerations: Late; Variable (Gladis Newell, RN) Pitocin (milliunit): Pitocin Remains (milliunits) @ 18 (Gladis Newell, RAJ) Pushing: Coached on Pushing; Urge to Push (Gladis Newell, RN) Pushing Position: Pushing with Contractions (Gladis Newell RN) Pushing Progress: Descent with Pushing; with Pushing (Gladis Newell RN) Communication: RN at Bedside; RN Reviewed Strip (Gladis Newell RN) Datetime: 07/15/2016 23:43 NBP Sys/Trina/Mean (mmHg): 132 (QS system process) : 92 (QS system process) : 105 (QS system process) Pulse: 85 (QS system process) LaborFlag: Labor (QS system process) Datetime: 07/15/2016 23:37 Stage of : Labor (Gladis Newell RN) Pushing: Coached on Pushing; Urge to Push (Gladis Newell RN) Pushing Position: Pushing with Contractions; Pushing Lithotomy (Gladis Newell RN) Stage 2 Comments: Continuously montioring FHR status while pushing with patient. Dr Hammond remains at bedside. (Gladis Newell RN) Communication: RN at Bedside; RN Reviewed Strip (Gladis Newell RN) Datetime: 07/15/2016 23:33 Dilatation (cm): 10.0 (Gladis Newell RN) Station: 1 (Gladis Newell RN) Exam by: Dr Hammond (Gladis Newell RN) Datetime: 07/15/2016 23:30 Stage of : Labor (Gladis Newell RN) Monitor Mode: External; Palpation (Gladis Newell RN) Frequency (min): 2-3 (Gladis Newell RN) Quality: Strong (Gladis Newell RN) Duration (sec): 50-90 (Gladis Newell RN) Pattern: Normal: <= 5 Contractions in 10 Minutes (Gladis Newell RN) Resting Tone (Palpate): Relaxed (Gladis Newell RN) Monitor Mode: External US (Gladis Newell RN) FHR Baseline Rate : 170 (Gladis Newell RN) FHR Baseline Changes: Tachycardia (Gladis Newell RN) Variability: Moderate 6-25 bpm (Gladis Newell RN) Accelerations: 10X10 (Gladis Newell RN) Decelerations: Variable (Gladis Newell RN) Pitocin (milliunit): Pitocin Remains (milliunits) @ 18 (Gladis Newell RN) Communication: RN at Bedside; RN Reviewed Strip (Gladis Newell RN) Datetime: 07/15/2016 23:15 Stage of : Labor (Gladis Newell RN) Respirations: 22 (Gladis Newell RN) Monitor Mode: External; Palpation (Gladis Newell RN) Frequency (min): 1.5-2.5 (Gladis Newell RN) Quality: Strong (Gladis Newell RN) Duration (sec): 60-80 (Gladis Newell RN) Pattern: Normal: <= 5 Contractions in 10 Minutes (Gladis Newell RN) Resting Tone (Palpate): Relaxed (Gladis Newell RN) Monitor Mode: External US (Gladis Newell RN) FHR Baseline Changes: Tachycardia (Gladis Newell RN) Variability: Moderate 6-25 bpm (Gladis Newell RN) Accelerations: 10X10 (Gladis Newell RN) Decelerations: Variable (Gladis Newell RN) Pain Scale: 4 (Gladis Newell RN) Pain Presence: Intermittent (Gladis Newell RN) Pain Type: Pressure (Gladis Newell RN) Pain Location: Perineum (Gladis Newell RN) Pain Relief Measures: Comfort Measures (Gladis Newell RN) Pain Coping: Breathing Through Contractions (Gladis Newell RN) Pitocin (milliunit): Pitocin Remains (milliunits) @ 18 (Gladis Newell RN) Comfort Measures: Breathing/Relaxation; Family Support (Gladis Newell RN) Communication: RN at Bedside; RN Reviewed Strip (Gladis Newell RN) LaborFlag: Labor (QS system process) Datetime: 07/15/2016 23:12 NBP Sys/Trina/Mean (mmHg): 117 (QS system process) : 59 (QS system process) : 85 (QS system process) Pulse: 102 (QS system process) Dilatation (cm): 9.5 (Gladis Newell RN) Station: 1 (Gladis Newell RN) Exam by: Dr Hammond (Gladis Newell RN) LaborFlag: Labor (QS system process) Datetime: 07/15/2016 23:07 Communication: Provider at Bedside (Gladis Newell RN) Communication Comments: Dr Hammond at bedside for patient assessment and through delivery of (Gladis Newell RN) Datetime: 07/15/2016 23:00 Stage of : Labor (Gladis Newell, RAJ) Monitor Mode: External; Palpation (Gladis Newell, RAJ) Frequency (min): 1.5-3 (Gladis Newell, RAJ) Quality: Strong (Gladis Newell, RN) Duration (sec): 50-90 (Gladis Newell, RN) Pattern: Normal: <= 5 Contractions in 10 Minutes (Gladis Newell, RN) Resting Tone (Palpate): Relaxed (Gladis Newell, RN) Monitor Mode: External US (Gladis Newell, RN) FHR Baseline Rate : 175 (Gladis Newell, RN) FHR Baseline Changes: Tachycardia (Gladis Newell, RN) Variability: Minimal - Undetectable to <=5 bpm (Gladis Newell, RN) Accelerations: None (Gladis Newell, RN) Decelerations: Variable (Gladis Newell, RN) Pitocin (milliunit): Pitocin Remains (milliunits) @ 18 (Gladis Newell, RAJ) Communication: RN at Bedside; RN Reviewed Strip (Gladis Newell RN) Datetime: 07/15/2016 22:56 NBP Sys/Trina/Mean (mmHg): 144 (QS system process) : 72 (QS system process) : 100 (QS system process) Pulse: 110 (QS system process) LaborFlag: Labor (QS system process) Datetime: 07/15/2016 22:46 Patient Position/Activity: Right Lateral; Peanut Ball (Gladis Newell, RN) Datetime: 07/15/2016 22:45 Stage of : Labor (Gladsi Newell, RN) Monitor Mode: External (Gladis Newell, RN) Frequency (min): 1-2.5 (Gladis Newell, RN) Quality: Strong (Gladis Newell, RN) Duration (sec): 50-80 (Gladis Newell, RN) Pattern: Normal: <= 5 Contractions in 10 Minutes (Gladis Newell, RN) Resting Tone (Palpate): Relaxed (Gladis Newell RN) Monitor Mode: External US (Gladis Newell RN) FHR Baseline Rate : 175 (Gladis Newell, RN) FHR Baseline Changes: Tachycardia (Gladis Newell, RN) Variability: Moderate 6-25 bpm (Gladis Newell, RN) Accelerations: None (Gladis Newell, RN) Decelerations: Variable (Gladis Newell, RN) Pitocin (milliunit): Pitocin Remains (milliunits) @ 18 (Gladis Newell RN) Communication: RN at Bedside; RN Reviewed Strip (Gladis Newell RN) Datetime: 07/15/2016 22:44 Dilatation (cm): 9.5 (Gladis Newell, RN) Effacement (%): 90 (Gladis Newell, RN) Station: 0 (Gladis Newell, RN) Exam by: Jozef Newell RN (Gladis Newell, RN) Vaginal Bleeding: Scant (Gladis Newell, RN) Cervix, Consistency: Soft (Gladis Newell, RN) Cervix, Position: Anterior (Gladis Newell, RN) Datetime: 07/15/2016 22:41 NBP Sys/Trina/Mean (mmHg): 149 (QS system process) : 73 (QS system process) : 104 (QS system process) Pulse: 106 (QS system process) LaborFlag: Labor (QS system process) Datetime: 07/15/2016 22:30 Stage of : Labor (Gladis Newell RN) Monitor Mode: External; Palpation (Gladis Newell RN) Frequency (min): 1-2 (Gladis Newell RN) Quality: Strong (Gladis Newell RN) Duration (sec): 60-80 (Gladis Newell RN) Pattern: Normal: <= 5 Contractions in 10 Minutes (Gladis Newell RN) Resting Tone (Palpate): Relaxed (Gladis Newell RN) Monitor Mode: External US (Gladis Newell RN) FHR Baseline Rate : 175 (Gladis Newell RN) FHR Baseline Changes: Tachycardia (Gladis Newell RN) Variability: Moderate 6-25 bpm (Gladis Newell RN) Accelerations: None (Gladis Newell RN) Decelerations: Variable (Gladis Newell RN) Actions for Decelerations: Provider Reviewed Strip (Gladis Newell RN) Pitocin (milliunit): Pitocin Remains (milliunits) @ 18 (Gladis Newell, RN) Communication: RN at Bedside; RN Reviewed Strip (Gladis Newell, RN) Datetime: 07/15/2016 22:29 Temperature (F): 98.4 (Gladis Newell, RN) Temperature (C): 36.9 (QS system process) Actions for Decelerations: IV Bolus (Gladis Newell, RN) Comments: Bolus for tachycardia (Gladis Newell, RN) LaborFlag: Labor (QS system process) Datetime: 07/15/2016 22:27 NBP Sys/Trina/Mean (mmHg): 134 (QS system process) : 75 (QS system process) : 98 (QS system process) Pulse: 118 (QS system process) LaborFlag: Labor (QS system process) Datetime: 07/15/2016 22:23 Dilatation (cm): 8.5 (Gladis Newell, RN) Effacement (%): 90 (Gladis Newell, RN) Station: 0 (Gladis Newell, RN) Exam by: B Newell, Rn (Gladis Newell, RN) Vaginal Bleeding: Normal Show (Gladis Newell, RN) Cervix, Consistency: Soft (Gladis Newell, RN) Cervix, Position: Midposition (Gladis Newell, RN) Datetime: 07/15/2016 22:17 Antibiotics: Penicillin IV (Units) @ 2.5 million units (Gladis Newell, RN) Datetime: 07/15/2016 22:15 Stage of : Labor (Gladis Newell, RN) Respirations: 18 (Gladis Newell, RN) Monitor Mode: External (Gladis Newell RN) Frequency (min): 1.5-3 (Gladis Newell RN) Quality: Strong (Gladis Newell RN) Duration (sec): 50-80 (Gladis Newell RN) Pattern: Normal: <= 5 Contractions in 10 Minutes (Gladis Newell RN) Resting Tone (Palpate): Relaxed (Gladis Newell RN) Monitor Mode: External US (Gladis Newell RN) FHR Baseline Rate : 170 (Gladis Newell RN) Variability: Moderate 6-25 bpm (Gladis Newell RN) Accelerations: 10X10 (Gladis Newell RN) Decelerations: Variable (Gladis Newell RN) Pain Scale: 3 (Gladis Newell RN) Pain Presence: Intermittent (Gladis Newell RN) Pain Type: Pressure (Gladis Newell RN) Pain Location: Abdomen (Gladis Newell RN) Pain Goal: 1 (Gladis Newell RN) Pain Relief Measures: Comfort Measures (Gladis Newell RN) Pitocin (milliunit): Pitocin Remains (milliunits) @ 18 (Gladis Newell RN) Comfort Measures: Breathing/Relaxation (Gladis Newell RN) Communication: RN at Bedside; RN Reviewed Strip (Gladis Newell RN) LaborFlag: Labor (QS system process) Datetime: 07/15/2016 22:12 NBP Sys/Trina/Mean (mmHg): 146 (QS system process) : 69 (QS system process) : 99 (QS system process) Pulse: 120 (QS system process) LaborFlag: Labor (QS system process) Datetime: 07/15/2016 22:00 Stage of : Labor (Gladis Newell, RN) Respirations: 18 (Gladis Newell, RN) Temperature (F): 98.4 (Gladis Newell, RN) Temperature (C): 36.9 (QS system process) Monitor Mode: External; Palpation (Gladis Newell, RN) Frequency (min): 1-3 (Gladis Newell, RN) Quality: Strong (Gladis Newell, RN) Duration (sec): 60-90 (Gladis Newell, RN) Pattern: Normal: <= 5 Contractions in 10 Minutes (Gladis Newell, RN) Resting Tone (Palpate): Relaxed (Gladis Newell, RN) Monitor Mode: External US (Gladis Newell, RN) FHR Baseline Rate : 150 (Gladis Newell, RN) Variability: Moderate 6-25 bpm (Gladis Newell, RN) Accelerations: 15X15 (Gladis Newell, RN) Decelerations: None; Variable (Gladis Newell, RN) Pitocin (milliunit): Pitocin Remains (milliunits) @ 18 (Gladis Newell, RN) Communication: RN at Bedside; RN Reviewed Strip (Gladis Newell, RN) LaborFlag: Labor (QS system process) Datetime: 07/15/2016 21:59 Patient Position/Activity: Tailors (Gladis Newell, RN) Datetime: 07/15/2016 21:56 NBP Sys/Trina/Mean (mmHg): 120 (QS system process) : 70 (QS system process) : 84 (QS system process) Pulse: 108 (QS system process) LaborFlag: Labor (QS system process) Datetime: 07/15/2016 21:45 Stage of : Labor (Gladis Newell, RN) Respirations: 18 (Gladis Newell, RN) Monitor Mode: External (Gladis Newell, RN) Frequency (min): 1.5-3 (Gladis Newell, RN) Quality: Strong (Gladis Newell, RN) Duration (sec): 50-80 (Gladis Newell, RN) Pattern: Normal: <= 5 Contractions in 10 Minutes (Gladis Newell, RN) Resting Tone (Palpate): Relaxed (Gladis Newell, RN) Monitor Mode: External US (Gladis Newell, RN) FHR Baseline Rate : 155 (Gladis Newell, RN) Variability: Moderate 6-25 bpm (Gladis Newell, RN) Accelerations: 15X15 (Gladis Newell, RN) Decelerations: Variable (Gladis Newell, RN) Pitocin (milliunit): Pitocin Remains (milliunits) @ 18 (Gladis Newell, RN) Communication: RN at Bedside; RN Reviewed Strip (Gladis Newell, RN) LaborFlag: Labor (QS system process) Datetime: 07/15/2016 21:42 NBP Sys/Trina/Mean (mmHg): 119 (QS system process) : 98 (QS system process) : 103 (QS system process) Pulse: 120 (QS system process) LaborFlag: Antepartum (QS system process) Datetime: 07/15/2016 21:40 Patient Position/Activity: Right Lateral; Peanut Ball; Low Fowlers (Gladis Newell, RN) Datetime: 07/15/2016 21:36 Dilatation (cm): 7.0 (Gladis Newell, RN) Effacement (%): 90 (Gladis Newell, RN) Station: -1 (Gladis Newell, RN) Exam by: B Newell, RN (Gladis Newell, RN) Vaginal Bleeding: Normal Show (Gladis Newell, RN) Cervix, Consistency: Moderate (Gladis Newell, RN) Cervix, Position: Midposition (Gladis Newell, RN) Datetime: 07/15/2016 21:34 Antiemetics/Antacids: Maalox PO (ml) @ 30 (Gladis Newell, RN) Datetime: 07/15/2016 21:30 Stage of : Antepartum (Gladis Newell, RN) Monitor Mode: External; Palpation (Gladis Newell, RN) Frequency (min): 1.5-2.5 (Gladis Newell, RN) Quality: Strong (Gladis Newell, RN) Duration (sec): 50-80 (Gladis Newell, RN) Pattern: Normal: <= 5 Contractions in 10 Minutes (Gladis Newell, RN) Resting Tone (Palpate): Relaxed (Gladis Newell, RN) Monitor Mode: External US (Gladis Newell, RN) FHR Baseline Rate : 155 (Gladis Newell, RN) Variability: Moderate 6-25 bpm (Gladis Newell, RN) Accelerations: 15X15 (Gladis Newell, RN) Decelerations: Variable (Gladis Newell, RN) Pitocin (milliunit): Pitocin Remains (milliunits) @ 18 (Gladis Newell, RN) Communication: RN Reviewed Strip (Gladis Newell, RN) Datetime: 07/15/2016 21:26 NBP Sys/Trina/Mean (mmHg): 118 (QS system process) : 74 (QS system process) : 91 (QS system process) Pulse: 94 (QS system process) LaborFlag: Labor (QS system process) Datetime: 07/15/2016 21:15 Stage of : Labor (Gladis Newell, RN) Monitor Mode: External (Gladis Newell, RN) Frequency (min): 1.5-3 (Gladis Newell, RN) Quality: Moderate to Strong (Gladis Newell, RN) Duration (sec): 50-70 (Gladis Newell, RN) Pattern: Normal: <= 5 Contractions in 10 Minutes (Gladis Newell, RN) Resting Tone (Palpate): Relaxed (Gladis Newell, RN) Monitor Mode: External US (Gladis Newell, RN) FHR Baseline Rate : 150 (Gladis Newell, RN) Variability: Moderate 6-25 bpm (Gladis Newell, RN) Accelerations: 15X15 (Gladis Newell, RN) Decelerations: Early (Gladis Newell, RN) Communication: RN at Bedside; RN Reviewed Strip (Gladis Newell, RN) Datetime: 07/15/2016 21:12 NBP Sys/Trina/Mean (mmHg): 117 (QS system process) : 73 (QS system process) : 89 (QS system process) Pulse: 99 (QS system process) Dilatation (cm): 6.0 (Gladis Newell, RN) Effacement (%): 90 (Gladis Newell, RN) Station: -1 (Gladis Newell, RN) Exam by: Jozef Newell RN (Gladis Newell, RN) Vaginal Bleeding: None (Gladis Newell, RN) Cervix, Consistency: Soft (Gladis Newell, RN) Cervix, Position: Midposition (Gladis Newell, RN) LaborFlag: Antepartum (QS system process) Datetime: 07/15/2016 21:10 Pitocin (milliunit): Pitocin Increased to (milliunits) @ 18 (Gladis Newell, RN) Datetime: 07/15/2016 21:00 Stage of : Antepartum (Gladis Newell, RN) Monitor Mode: External (Gladis Newell, RN) Frequency (min): 1.5-3 (Gladis Newell, RN) Quality: Moderate to Strong (Gladis Newell, RN) Duration (sec): 50-80 (Gladis Newell, RN) Pattern: Normal: <= 5 Contractions in 10 Minutes (Gladis Newell, RN) Resting Tone (Palpate): Relaxed (Gladis Newell, RN) Monitor Mode: External US (Gladis Newell, RN) FHR Baseline Rate : 150 (Gladis Newell, RN) Variability: Moderate 6-25 bpm (Gladis Newell, RN) Accelerations: 15X15 (Gladis Newell, RN) Decelerations: Early (Gladis Newell, RN) Pitocin (milliunit): Pitocin Remains (milliunits) @ 16 (Gladis Newell, RN) Communication: RN at Bedside; RN Reviewed Strip (Gladis Newell, RN) Datetime: 07/15/2016 20:56 NBP Sys/Trina/Mean (mmHg): 110 (QS system process) : 59 (QS system process) : 78 (QS system process) Pulse: 122 (QS system process) LaborFlag: Antepartum (QS system process) Datetime: 07/15/2016 20:51 Pitocin (milliunit): Pitocin Increased to (milliunits) @ 16 (Gladis Newell, RN) Datetime: 07/15/2016 20:46 Pulse: 105 (QS system process) SpO2 (%): 100 (QS system process) LaborFlag: Antepartum (QS system process) Datetime: 07/15/2016 20:45 Stage of : Antepartum (Gladis Newell, RN) Monitor Mode: External; Palpation (Gladis Newell, RN) Frequency (min): irregular (Gladis Newell, RN) Quality: Moderate to Strong (Gladis Newell, RN) Duration (sec): 40-60 (Gladis Newell, RN) Pattern: Normal: <= 5 Contractions in 10 Minutes (Gladis Newell, RN) Resting Tone (Palpate): Relaxed (Gladis Newell, RN) Monitor Mode: External US (Gladis Newell, RN) FHR Baseline Rate : 150 (Gladis Newell, RN) Variability: Moderate 6-25 bpm (Gladis Newell, RN) Accelerations: 10X10 (Gladis Newell, RN) Decelerations: None (Gladis Newell, RN) Pitocin (milliunit): Pitocin Remains (milliunits) @ 14 (Gladis Newell, RN) Communication: RN at Bedside; RN Reviewed Strip (Gladis Newell, RN) Datetime: 07/15/2016 20:43 NBP Sys/Trina/Mean (mmHg): 128 (QS system process) : 61 (QS system process) : 87 (QS system process) Pulse: 97 (QS system process) LaborFlag: Antepartum (QS system process) Datetime: 07/15/2016 20:41 Pulse: 99 (QS system process) SpO2 (%): 100 (QS system process) LaborFlag: Antepartum (QS system process) Datetime: 07/15/2016 20:36 Pulse: 115 (QS system process) SpO2 (%): 100 (QS system process) LaborFlag: Antepartum (QS system process) Datetime: 07/15/2016 20:31 Pulse: 110 (QS system process) SpO2 (%): 100 (QS system process) LaborFlag: Antepartum (QS system process) Datetime: 07/15/2016 20:30 Stage of : Antepartum (Gladis Newell, RN) Respirations: 18 (Gladis Newell, RN) Temperature (F): 98.4 (Gladis Newell, RN) Temperature (C): 36.9 (QS system process) Monitor Mode: External (Gladis Newell RN) Frequency (min): 1-6.5 (Gladis Newell RN) Quality: Moderate to Strong (Gladis Newell RN) Duration (sec): 50-70 (Gladis Newell RN) Pattern: Normal: <= 5 Contractions in 10 Minutes (Gladis Newell RN) Resting Tone (Palpate): Relaxed (Gladis Newell RN) Monitor Mode: External US (Gladis Newell RN) FHR Baseline Rate : 150 (Gladis Newell RN) Variability: Moderate 6-25 bpm (Gladis Newell RN) Accelerations: 15X15 (Gladis Newell RN) Decelerations: None (Gladis Newell RN) Pain Scale: 1 (Gladis Newell RN) Pain Presence: Intermittent (Gladis Newell RN) Pain Type: Pressure (Gladis Newell RN) Pain Location: Perineum (Gladis Newell RN) Pain Relief Measures: Comfort Measures (Gladis Newell RN) Pain Coping: Talking Through Contractions (Gladis Newell RN) Pitocin (milliunit): Pitocin Remains (milliunits) @ 14 (Gladis Newell RN) Comfort Measures: Breathing/Relaxation; Family Support (Gladis Newell RN) Communication: RN at Bedside; RN Reviewed Strip (Gladis Newell RN) LaborFlag: Antepartum (QS system process) Datetime: 07/15/2016 20:28 Pitocin (milliunit): Pitocin Increased to (milliunits) @ 14 (Gladis Newell, RN) Datetime: 07/15/2016 20:26 Pulse: 127 (QS system process) SpO2 (%): 100 (QS system process) LaborFlag: Antepartum (QS system process) Datetime: 07/15/2016 20:23 IV/Blood Work: New IV Bag Hung (Gladis Newell, RN) Datetime: 07/15/2016 20:21 Pulse: 94 (QS system process) SpO2 (%): 100 (QS system process) LaborFlag: Antepartum (QS system process) Datetime: 07/15/2016 20:16 Pulse: 122 (QS system process) SpO2 (%): 100 (QS system process) LaborFlag: Antepartum (QS system process) Datetime: 07/15/2016 20:15 Monitor Mode: External; Palpation (Gladis Newell, RN) Frequency (min): 2-5 (Gladis Newell, RN) Quality: Moderate to Strong (Gladis Newell, RN) Duration (sec): 40-70 (Gladis Newell, RN) Pattern: Normal: <= 5 Contractions in 10 Minutes (Gladis Newell, RN) Resting Tone (Palpate): Relaxed (Gladis Newell, RN) Monitor Mode: External US (Gladis Newell, RN) FHR Baseline Rate : 150 (Gladis Newell, RN) Variability: Moderate 6-25 bpm (Gladis Newell, RN) Accelerations: 10X10 (Gladis Newell, RN) Decelerations: Variable (Gladis Newell, RN) Pitocin (milliunit): Pitocin Remains (milliunits) @ 12 (Gladis Newell, RN) Datetime: 07/15/2016 20:11 Pulse: 127 (QS system process) SpO2 (%): 99 (QS system process) LaborFlag: Antepartum (QS system process) Datetime: 07/15/2016 20:10 NBP Sys/Trina/Mean (mmHg): 130 (QS system process) : 60 (QS system process) : 86 (QS system process) Pulse: 94 (QS system process) LaborFlag: Antepartum (QS system process) Datetime: 07/15/2016 20:09 NBP Sys/Trina/Mean (mmHg): 203 (QS system process) : 130 (QS system process) : 163 (QS system process) Pulse: 122 (QS system process) LaborFlag: Antepartum (QS system process) Datetime: 07/15/2016 20:08 NBP Sys/Trina/Mean (mmHg): 188 (QS system process) : 122 (QS system process) : 144 (QS system process) Pulse: 210 (QS system process) LaborFlag: Antepartum (QS system process) Datetime: 07/15/2016 20:06 Pulse: 89 (QS system process) SpO2 (%): 100 (QS system process) LaborFlag: Antepartum (QS system process) Datetime: 07/15/2016 20:05 Pitocin (milliunit): Pitocin Increased to (milliunits) @ 12 (Gladis Newell, RN) Datetime: 07/15/2016 20:01 Pulse: 146 (QS system process) SpO2 (%): 100 (QS system process) LaborFlag: Antepartum (QS system process) Datetime: 07/15/2016 20:00 Stage of : Antepartum (Gladis Newell, RN) Monitor Mode: External (Gladis Newell, RN) Frequency (min): 2-4 (Gladis Newell, RN) Quality: Moderate (Gladis Newell, RN) Duration (sec): 40-70 (Gladis Newell, RN) Pattern: Normal: <= 5 Contractions in 10 Minutes (Gladis Newell RN) Resting Tone (Palpate): Relaxed (Gladis Newell RN) Monitor Mode: External US (Gladis Newell RN) FHR Baseline Rate : 140 (Gladis Newell RN) Variability: Moderate 6-25 bpm (Gladis Newell RN) Accelerations: 15X15 (Gladis Newell RN) Decelerations: Variable (Gladis Newell RN) Level of Consciousness: Fully Conscious (Gladis Newell RN) DTR's/Clonus: DTRs 2+; No Clonus (Gladis Newell RN) Headache: Denies (Gladis Newell RN) Breath Sounds, Left: Clear and Equal (Gladis Newell RN) Breath Sounds, Right: Clear and Equal (Gladis Newell RN) Nausea/Vomiting: Present (Annotations: nausea) (Gladis Newell RN) RUQ Epigastric Pain: Denies (Gladis Newell RN) Pitocin (milliunit): Pitocin Remains (milliunits) @ 10 (Gladis Newell RN) Communication: RN at Bedside; RN Reviewed Strip (Gladis Newell RN)
--- NOTE | 2016-07-16 10:46 | L&D Flow Sheet ---
LD Flowsheet Datetime Report Generated by CPN: 07/16/2016 10:45 Datetime: 07/16/2016 09:57 Stage of : Recovery (Claudia Josselyn, RN) Datetime: 07/16/2016 08:10 Stage of : Recovery (Claudia Josselyn, RN) Temperature (F): 97.7 (Claudia Josselyn, RN) Temperature (C): 36.5 (QS system process) Temperature Route: Oral (Claudia Josselyn, RN) Pain Scale: 0 (Claudia Broman, RN) Pain Presence: None/Denies (Claudia Broman, RN) Pain Type: N/A (Claudia Broman, RN) Pain Relief Measures: Comfort Measures (Claudia Broman, RN) Datetime: 07/16/2016 05:54 NBP Sys/Trina/Mean (mmHg): 124 (QS system process) : 64 (QS system process) : 88 (QS system process) Pulse: 68 (QS system process) Datetime: 07/16/2016 02:20 Stage of : Recovery (Gladis Newell, RN) Datetime: 07/16/2016 01:55 Stage of : Recovery (Gladis Newell, RN) Respirations: 16 (Gladis Newell, RN) Temperature (F): 98.1 (Gladis Newell, RN) Temperature (C): 36.7 (QS system process) Pain Scale: 0 (Gladis Newell, RN) Pain Presence: None/Denies (Gladis Newell, RN) Pain Type: N/A (Gladis Newell, RN) Datetime: 07/16/2016 01:40 Stage of : Recovery (Gladis Newell, RN) Datetime: 07/16/2016 01:35 Stage of : Recovery (Gladis Newell, RN) Pain Scale: 0 (Gladis Newell, RN) Pain Presence: None/Denies (Gladis Newell, RN) Pain Type: N/A (Gladis Newell, RN) Datetime: 07/16/2016 01:25 Stage of : Recovery (Gladis Newell, RN) Pain Scale: 1 (Gladis Newell, RN) Pain Presence: Intermittent (Gladis Newell, RN) Pain Type: Pressure (Gladis Newell, RN) Pain Location: Perineum (Gladis Newell, RN) Datetime: 07/16/2016 01:10 Stage of : Recovery (Gladis Newell, RN) Respirations: 18 (Gladis Newell, RN) Temperature (F): 99.4 (Gladis Newell, RN) Temperature (C): 37.4 (QS system process) Temperature Route: Oral (Gladis Newell, RN) Pain Scale: 1 (Gladis Newell, RN) Pain Presence: Intermittent (Gladis Newell, RN) Pain Type: Pressure (Gladis Newell, RN) Pain Location: Perineum (Gladis Newell, RN) Datetime: 07/16/2016 00:55 Stage of : Recovery (Gladis Newell, RN) Respirations: 18 (Gladis Newell, RN) Pain Scale: 1 (Gladis Newell, RN) Pain Presence: Intermittent (Gladis Newell, RN) Pain Type: Pressure (Gladis Newell, RN) Pain Location: Perineum (Gladis Newell, RN) Datetime: 07/16/2016 00:31 Pain Relief Measures: Pain Medication Given (Gladis Newell, RN) Datetime: 07/16/2016 00:25 Stage of : Recovery (Gladis Newell, RN) Datetime: 07/16/2016 00:11 NBP Sys/Trina/Mean (mmHg): 133 (QS system process) : 80 (QS system process) : 100 (QS system process) Pulse: 89 (QS system process) Datetime: 07/16/2016 00:10 Stage of : Recovery (Gladis Newell, RN) Respirations: 18 (Gladis Newell, RN) Pain Scale: 0 (Gladis Newell, RN) Pain Presence: None/Denies (Gladis Newell, RN) Pain Type: N/A (Gladis Newell, RN) Datetime: 07/15/2016 23:56 NBP Sys/Trina/Mean (mmHg): 127 (QS system process) : 83 (QS system process) : 98 (QS system process) Pulse: 97 (QS system process) Datetime: 07/15/2016 23:55 Stage of : Recovery (Gladis Newell, RN) Respirations: 18 (Gladis Newell, RN) Datetime: 07/15/2016 23:51 Stage of : Recovery (Gladis Newlel, RN) Stage 2 Comments: Placenta delivered and inspected by Dr Hammond, trailing membranes manually removed (Gladis Newell, RN) Datetime: 07/15/2016 23:47 Stage 2 Comments: Viable female infant delivert by Dr Hammond (Gladis Newell, RN) Datetime: 07/15/2016 23:45 Stage of : Labor (Gladis Newell, RN) Monitor Mode: External (Gladis Newell, RN) Frequency (min): 1-1.5 (Gladis Newell, RN) Quality: Strong (Gladis Newell, RN) Duration (sec): 50-70 (Gladis Newell, RN) Pattern: Normal: <= 5 Contractions in 10 Minutes (Gladis Newell, RN) Resting Tone (Palpate): Relaxed (Gladis Newell, RN) Monitor Mode: External US (Gladis Newell, RN) FHR Baseline Rate : 175 (Gladis Newell, RN) FHR Baseline Changes: Tachycardia (Gladis Newell, RN) Variability: Moderate 6-25 bpm (Gladis Newell, RN) Accelerations: 10X10 (Gladis Newell, RN) Decelerations: Late; Variable (Gladis Newell, RN) Pitocin (milliunit): Pitocin Remains (milliunits) @ 18 (Gladis Newell, RN) Pushing: Coached on Pushing; Urge to Push (Gladis Newell, RN) Pushing Position: Pushing with Contractions (Gladis Newell, RN) Pushing Progress: Descent with Pushing; with Pushing (Gladis Newell, RN) Communication: RN at Bedside; RN Reviewed Strip (Gladis Newell, RN) Datetime: 07/15/2016 23:43 NBP Sys/Trina/Mean (mmHg): 132 (QS system process) : 92 (QS system process) : 105 (QS system process) Pulse: 85 (QS system process) LaborFlag: Labor (QS system process) Datetime: 07/15/2016 23:37 Stage of : Labor (Gladis Newell, RAJ) Pushing: Coached on Pushing; Urge to Push (Gladis Newell, RN) Pushing Position: Pushing with Contractions; Pushing Lithotomy (Gladis Newell, RN) Stage 2 Comments: Continuously montioring FHR status while pushing with patient. Dr Hammond remains at bedside. (Gladis Newell, RN) Communication: RN at Bedside; RN Reviewed Strip (Gladis Newell, RN) Datetime: 07/15/2016 23:33 Dilatation (cm): 10.0 (Gladis Newell, RN) Station: 1 (Gladis Newell, RN) Exam by: Dr Hammond (Gladis Newell, RN) Datetime: 07/15/2016 23:30 Stage of : Labor (Gladis Newell, RN) Monitor Mode: External; Palpation (Gladis Newell, RN) Frequency (min): 2-3 (Gladis Newell, RN) Quality: Strong (Gladis Newell, RN) Duration (sec): 50-90 (Gladis Newell, RN) Pattern: Normal: <= 5 Contractions in 10 Minutes (Gladis Newell, RN) Resting Tone (Palpate): Relaxed (Gladis Newell, RN) Monitor Mode: External US (Gladis Newell, RN) FHR Baseline Rate : 170 (Gladis Newell, RN) FHR Baseline Changes: Tachycardia (Gladis Newell, RN) Variability: Moderate 6-25 bpm (Gladis Newell, RN) Accelerations: 10X10 (Gladis Newell, RN) Decelerations: Variable (Gladis Newell, RN) Pitocin (milliunit): Pitocin Remains (milliunits) @ 18 (Gladis Newell RN) Communication: RN at Bedside; RN Reviewed Strip (Gladis Newell RN) Datetime: 07/15/2016 23:15 Stage of : Labor (Gladis Newell RN) Respirations: 22 (Gladis Newell RN) Monitor Mode: External; Palpation (Gladis Newell RN) Frequency (min): 1.5-2.5 (Gladis Newell RN) Quality: Strong (Gladis Newell RN) Duration (sec): 60-80 (Gladis Newell RN) Pattern: Normal: <= 5 Contractions in 10 Minutes (Gladis Newell RN) Resting Tone (Palpate): Relaxed (Gladis Newell RN) Monitor Mode: External US (Gladis Newell RN) FHR Baseline Changes: Tachycardia (Gladis Newell RN) Variability: Moderate 6-25 bpm (Gladis Newell RN) Accelerations: 10X10 (Gladis Newell RN) Decelerations: Variable (Gladis Newell RN) Pain Scale: 4 (Gladis Newell RN) Pain Presence: Intermittent (Gladis Newell RN) Pain Type: Pressure (Gladis Newell RN) Pain Location: Perineum (Gladis Newell RN) Pain Relief Measures: Comfort Measures (Gladis Newell RN) Pain Coping: Breathing Through Contractions (Gladis Newell RN) Pitocin (milliunit): Pitocin Remains (milliunits) @ 18 (Gladis Newell RN) Comfort Measures: Breathing/Relaxation; Family Support (Gladis Newell RN) Communication: RN at Bedside; RN Reviewed Strip (Gladis Newell RN) LaborFlag: Labor (QS system process) Datetime: 07/15/2016 23:12 NBP Sys/Trina/Mean (mmHg): 117 (QS system process) : 59 (QS system process) : 85 (QS system process) Pulse: 102 (QS system process) Dilatation (cm): 9.5 (Gladis Newell RN) Station: 1 (Gladis Newell RN) Exam by: Dr Hammond (Gladis Newell RN) LaborFlag: Labor (QS system process) Datetime: 07/15/2016 23:07 Communication: Provider at Bedside (Gladis Newell RN) Communication Comments: Dr Hammond at bedside for patient assessment and through delivery of (Gladis Newell RN) Datetime: 07/15/2016 23:00 Stage of : Labor (Gladis Newell, RN) Monitor Mode: External; Palpation (Gladis Newell, RN) Frequency (min): 1.5-3 (Gladis Newell, RN) Quality: Strong (Gladis Newell, RN) Duration (sec): 50-90 (Gladis Newell, RN) Pattern: Normal: <= 5 Contractions in 10 Minutes (Gladis Newell, RN) Resting Tone (Palpate): Relaxed (Gladis Newell, RN) Monitor Mode: External US (Gladis Newell, RN) FHR Baseline Rate : 175 (Gladis Newell, RN) FHR Baseline Changes: Tachycardia (Gladis Newell, RN) Variability: Minimal - Undetectable to <=5 bpm (Gladis Newell, RN) Accelerations: None (Gladis Newell, RN) Decelerations: Variable (Gladis Newell, RN) Pitocin (milliunit): Pitocin Remains (milliunits) @ 18 (Gladis Newell, RN) Communication: RN at Bedside; RN Reviewed Strip (Gladis Newell, RN) Datetime: 07/15/2016 22:56 NBP Sys/Trina/Mean (mmHg): 144 (QS system process) : 72 (QS system process) : 100 (QS system process) Pulse: 110 (QS system process) LaborFlag: Labor (QS system process) Datetime: 07/15/2016 22:46 Patient Position/Activity: Right Lateral; Peanut Ball (Gladis Newell, RN) Datetime: 07/15/2016 22:45 Stage of : Labor (Gladis Newell, RN) Monitor Mode: External (Gladis Newell, RN) Frequency (min): 1-2.5 (Gladis Newell, RN) Quality: Strong (Gladis Newell, RN) Duration (sec): 50-80 (Gladis Newell, RN) Pattern: Normal: <= 5 Contractions in 10 Minutes (Gladis Newell, RN) Resting Tone (Palpate): Relaxed (Gladis Newell, RN) Monitor Mode: External US (Gladis Newell, RN) FHR Baseline Rate : 175 (Gladis Newell, RN) FHR Baseline Changes: Tachycardia (Gladis Newell, RN) Variability: Moderate 6-25 bpm (Gladis Newell, RN) Accelerations: None (Gladis Newell RN) Decelerations: Variable (Gladis Newell RN) Pitocin (milliunit): Pitocin Remains (milliunits) @ 18 (Gladis Newell, RAJ) Communication: RN at Bedside; RN Reviewed Strip (Gladis Newell RN)
--- NOTE | 2016-07-16 10:46 | L&D Current Admission ---
Current Admit Datetime Report Generated by CPN: 07/16/2016 10:45 ADMISSION INFORMATION Current Admit Date/Time: 07/15/2016 14:48 (07/15/2016 12:37:BRII [place]) Reason for Admission: Induction of Labor (07/15/2016 12:37:BRII [place]) Chief Complaint: Contractions; Other (Annotations: pain and pressure x 3 weeks worsen today beginning aroun 10 ) (07/15/2016 12:37:BRII [place]) Medications During : Vitamin (07/15/2016 12:37:BRII [place]) Meds During -Oth: ambien and buspar (07/15/2016 12:37:BRII [place]) EGA per Dates: 40.3 (07/15/2016 12:37:QS system process) Method of Arrival: Wheelchair (07/15/2016 12:37:BRII [place]) Records Available: Yes (07/15/2016 12:37:BRII [place]) General Admission Information: Reviewed; Updated; Confirmed (07/15/2016 12:37:BRII [place]) General Admission Reviewed By: Triny TERESA (07/15/2016 12:37:BRII [place]) BELONGINGS/ADVANCED DIRECTIVES Other Belongings: See [facility] Valuables consent (07/15/2016 12:37:BRII Austin) Disposition of Belongings: Kept with Patient (07/15/2016 12:37:BRII [place]) Durable Power of Electroplater Apprentice: No (07/15/2016 12:37:BRII [place]) Living Will: No (07/15/2016 12:37:BRII [place]) Organ Donor: Yes (07/15/2016 12:37:BRII [place]) Pt Rights Information Given: Yes (07/15/2016 12:37:BRII Austin) Pt Understands Pt Rights: Yes (07/15/2016 12:37:BRII [place]) LEARNING ASSESSMENT Knowledge Level: Understands L_D Process; Understands Care Activities; Had Pre-Hospital Education (07/15/2016 12:37:BRII [place]) Barriers to Learning: None (07/15/2016 12:37:BRII [place]) Learning Readiness: Motivated (07/15/2016 12:37:BRII [place]) Learns Best By: 1 to 1 Instruction; Demonstration (07/15/2016 12:37:BRII Austin) Learning Needs: Labor and Delivery Process; Pain Management; Symptoms to Report; Treatment Plan; Medication; Diagnosis; Nutrition; Equipment; Infant Care; Community Resources; Other (07/15/2016 12:37:BRII [place]) Learning Assessment Comments: (07/15/2016 12:37:BRII [place]) DOMESTIC VIOLANCE SCREENING Dom Viol Threatened/Hurt: No (07/15/2016 12:37:BRII [place]) Hx of Abuse/Neglect past 2yrs: No (07/15/2016 12:37:BRII [place]) Feel Unsafe Going Home: No (07/15/2016 12:37:BRII Austin) Addt'l Observ Indicating Abuse: No (07/15/2016 12:37:BRII Austin) Reason Unable to Complete Screen: N/A, Screen Completed (07/15/2016 12:37:BRII Austin) Considered Personal Harm/Suicide: No (07/15/2016 12:37:BRII [place]) NUTRITIONAL/FUNCTIONAL SCREENING Problem with Appetite >5 Days: No (07/15/2016 12:37:BRII Austin) Chew/Swallow Difficulties: No (07/15/2016 12:37:BRII Austin) Inappropriate Wt Gain/Loss: No (07/15/2016 12:37:BRII [place]) Presence Skin Breakdown/Ulcer: No (07/15/2016 12:37:BRII [place]) Special Diet: No (07/15/2016 12:37:BRII [place]) Pt Requests Program Manager Environmental Planning Visit: No (07/15/2016 12:37:BRII Austin) Hx of Any of the Following?: N/A (07/15/2016 12:37:BRII [place]) New Diagnosis of: N/A (07/15/2016 12:37:BRII [place]) Requires Assist w/Ambulation: No (07/15/2016 12:37:BRII Austin) Uses Assist Device to Ambulate: No (07/15/2016 12:37:BRII Austin) Pt Requires Help w/ADL's: No (07/15/2016 12:37:BRII Austin)
--- NOTE | 2016-07-16 10:46 | L&D General Admission ---
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[facility] (07/15/2016 12:02:Triny Torres, [facility]) Month of 1st Visit: december (07/15/2016 12:02:Triny Torres, [facility]) Adequate Care: Yes (07/15/2016 12:02:Triny Torres, [facility]) Prepregnancy Weight (lb): 208 (07/15/2016 12:02:Triny Torres, RN) Prepregnancy Weight (kg): 94.5 (07/15/2016 12:02:QS system process) Height (in): 60 (07/15/2016 13:12:QS system process) ALLERGIES Medication Allergy: No (07/15/2016 12:02:Triny Torres [facility]) Medication Allergies: No Known Allergies (07/15/2016) (07/15/2016 13:12:QS system process) Medication Allergies: No Known Allergies (01/15/2016) (05/11/2016 13:46:QS system process) Latex Allergy: No Latex Allergies (07/15/2016 12:02:Triny Camp, RNC) Food Allergies: none (07/15/2016 12:02:Gladis Newell RN) Environmental Allergies: none (07/15/2016 12:02:Gladis Newell RN) COMMUNICATION Primary Language: Bolivian (07/15/2016 12:02:Triny Torres, RNC) Medical Tx Preferred Language: Bolivian (07/15/2016 12:02:Triny Torres, RNC) Communication Barrier(s): None (07/15/2016 12:02:Triny Camp, RNC) DEMOGRAPHICS Address: [address] [place] [id number] (05/11/2016 13:46:QS system process) Zipcode: [address] (05/11/2016 13:46:QS system process) Home (05/11/2016 13:46:QS system process) Work (05/11/2016 13:46:QS system process) N: [id number] (05/11/2016 13:46:QS system process) Next of Kin Name: BISMARK RINCON (05/11/2016 13:46:QS system process) Next of Kin (05/11/2016 13:46:QS system process) Next of Kin Relationship: SPO (05/11/2016 13:46:QS system process) Date of : 1990 (05/11/2016 13:46:QS system process) Marital Status: Single (05/11/2016 13:46:QS system process) Sex: Female (05/11/2016 13:46:QS system process) Occupation: Other (07/15/2016 12:02:BRII [place]) Race: (05/11/2016 13:46:QS system process) Ethnicity: Non- or (05/11/2016 13:46:QS system process) Anabaptist: None (05/11/2016 13:46:QS system process) Education: 12 (07/15/2016 12:02:BRII [place]) FOB Involved: N/A (07/15/2016 12:02:BRII [place]) Father of Baby Name: Bismark (07/15/2016 12:02:BRII [place]) DRUG AND ALCOHOL USE Alcohol: No (07/15/2016 12:02:BRII [place]) Cigarettes: Never Smoker. [id number] (07/15/2016 12:02:BRII [place]) Marijuana: No (07/15/2016 12:02:BRII [place]) Cocaine: No (07/15/2016 12:02:BRII [place]) Other Illicit Drugs: No (07/15/2016 12:02:Triny Camp, [facility]) VACCINE HISTORY Influenza Vaccine: Yes (07/15/2016 12:02:Triny Camp, [facility]) Pneumococcal Vaccine: No (07/15/2016 12:02:Triny Camp, [facility]) Tetanus Vaccine: Yes (07/15/2016 12:02:Triny Camp, [facility]) Tdap Vaccine: Yes (07/15/2016 12:02:Triny [place], [facility]) Hepatitis B Vaccine: Uncertain (07/15/2016 12:02:Triny Camp, [facility]) Auto Brake Technician: [facility] (07/15/2016 12:02:Triny Torres [facility]) Feeding Preference: Breast (07/15/2016 12:02:Triny Torres [facility]) Benefit of Breast Feed Discussed: Yes (07/15/2016 12:02:Triny Torres, [facility]) Circumcision: N/A (07/15/2016 12:02:Triny Torres [facility]) Classes Attended: No (07/15/2016 12:02:BRII [place]) Tubal Ligation: No (07/15/2016 12:02:BRII [place]) Tubal Authorization Signed: N/A (07/15/2016 12:02:BRII [place]) Consent: N/A (07/15/2016 12:02:BRII [place]) Consent Signed: N/A (07/15/2016 12:02:BRII [place]) Pain Management Plans: Epidural (07/15/2016 12:02:BRII [place]) Plans for Labor and Delivery: None (07/15/2016 12:02:BRII [place]) Support Person: Bismark Rincon (07/15/2016 12:02:BRII [place]) Support Person Relationship: (07/15/2016 12:02:BRII [place]) Cultural/Spritual Practice: No (07/15/2016 12:02:BRII [place]) Spir/Cult Dietary Needs: No (07/15/2016 12:02:BRII [place]) LIVING SITUATION/DISCHARGE PLAN Living Arrangements: House (07/15/2016 12:02:BRII [place]) Adequate Access to:: Electric; Heat; Refrigeration; Plumbing/Running water; Phone; Transportation (07/15/2016 12:02:BRII [place]) WIC Program: Yes (07/15/2016 12:02:BRII [place]) 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 Person: Bess Stanton (07/15/2016 12:02:BRII [place]) Person to Help after Discharge: Bess Stanton (07/15/2016 12:02:BRII [place]) Currently Using Commun Resources: Yes (07/15/2016 12:02:BRII [place]) Specify Current Resource Used: Medicaid, WIC (07/15/2016 12:02:BRII [place]) Outside Agency/Talent Analyst: No (07/15/2016 12:02:BRII [place]) Car Seat for Discharge: Yes (07/15/2016 12:02:BRII [place]) Adoption Requested: No (07/15/2016 12:02:BRII [place]) Pt Contact w/ Post : N/A (07/15/2016 12:02:BRII [place]) LABS Blood Type: O Positive (07/15/2016 12:02:Rica Patton RN) Hemoglobin: 10.1 L (07/15/2016 15:51:QS system process) Hematocrit: 30.5 L (07/15/2016 15:51:QS system process) MCV: 80 (07/15/2016 15:51:QS system process) Group Beta Strep: positive (07/15/2016 12:02:Rica Patton RN) Gonorrhea: Negative (07/15/2016 12:02:Rica Patton RN) Chlamydia: Negative (Annotations: Data stored by CPN on behalf of user) (07/15/2016 12:02:Rica Patton RN) RPR/VDRL: Nonreactive (07/15/2016 12:02:Rica Patton RN) Hepatitis B: Negative (07/15/2016 12:02:Rica Patton RN) Rubella: Immune (07/15/2016 12:02:Rica Patton RN) OB/PREVIOUS HISTORY Previous Procedures: Ultrasound; NST (07/15/2016 12:02:BRII [place]) Current Procedures: Ultrasound; NST (07/15/2016 12:02:BRII [place]) History of Previous : No (07/15/2016 12:02:BRII [place]) History of Gestational Diabetes: No (07/15/2016 12:02:BRII [place]) History of PIH: No (07/15/2016 12:02:BRII [place]) History of Incompetent Cervix: No (07/15/2016 12:02:BRII [place]) History of Placenta Previa/Abrup: No (07/15/2016 12:02:BRII [place]) History of Macrosomia: No (07/15/2016 12:02:BRII [place]) History of IUGR: No (07/15/2016 12:02:BRII [place]) History of Hemorrhage: No (07/15/2016 12:02:BRII [place]) History of Loss/Stillborn: No (07/15/2016 12:02:BRII [place]) History of : No (07/15/2016 12:02:BRII [place]) History of D (Rh) Sensitization: No (07/15/2016 12:02:BRII [place]) History Recurrent Loss/Stillborn: No (07/15/2016 12:02:BRII [place]) History Depression/PP Depression: Yes (07/15/2016 12:02:BRII [place]) History of Uterine Anomaly/JUAN PABLO: No (07/15/2016 12:02:BRII uAstin) History of Infertility: No (07/15/2016 12:02:BRII [place]) History of ART Treatment: No (07/15/2016 12:02:BRII [place]) History of JUAN PABLO: No (07/15/2016 12:02:BRII [place]) Comments Obstetrical History: G1- 2008 male pp depression G2- no complaints (07/15/2016 12:02:BRII [place]) MEDICAL HISTORY Med Hx Diabetes: No (07/15/2016 12:02:BRII [place]) Med Hx Hypertension: No (07/15/2016 12:02:BRII [place]) Med Hx Heart Disease: No (07/15/2016 12:02:BRII [place]) Med Hx Autoimmune Disorder: No (07/15/2016 12:02:BRII [place]) Med Hx Kidney Disease/UTI: No (07/15/2016 12:02:BRII [place]) Med Hx Neurologic/Epilepsy: No (07/15/2016 12:02:BRII [place]) Med Hx Psychiatric Disorders: Yes (07/15/2016 12:02:BRII [place]) Med Hx Hepatitis/Liver Disease: No (07/15/2016 12:02:BRII [place]) Med Hx Varicosities/Phlebitis: No (07/15/2016 12:02:BRII [place]) Med Hx Thyroid Dysfunction: No (07/15/2016 12:02:BRII [place]) Med Hx Trauma/Violence: No (07/15/2016 12:02:BRII [place]) Med Hx Blood Transfusion: No (07/15/2016 12:02:BRII [place]) Med Hx Pulmonary (Asthma,TB): No (07/15/2016 12:02:BRII [place]) Med Hx Breast: No (07/15/2016 12:02:BRII [place]) Med Hx COMMUNITY THEATER ACTOR Surgery: No (07/15/2016 12:02:BRII [place]) Med Hx Hospitalization/Surgery: Yes (07/15/2016 12:02:BRII [place]) Med Hx Anesthetic Complications: No (07/15/2016 12:02:BRII [place]) Med Hx Abnormal Pap Smear: No (07/15/2016 12:02:BRII [place]) Other Medical Diseases: No (07/15/2016 12:02:BRII [place]) Med Hx Significant Family Hx: No (07/15/2016 12:02:BRII [place]) Details of Med/Surg Hx: Bowel blockage with appendectomy 1997 (07/15/2016 12:02:BRII [place]) INFECTIOUS HISTORY Inf Hx Gonorrhea: No (07/15/2016 12:02:BRII [place]) Inf Hx Chlamydia: No (07/15/2016 12:02:BRII [place]) Inf Hx Syphilis: No (07/15/2016 12:02:BRII [place]) Inf Hx HIV/AIDS: No (07/15/2016 12:02:BRII [place]) Inf Hx Human Papilloma Virus: No (07/15/2016 12:02:Triny Torres [facility]) Inf Hx Pt/Partner Genital Herpes: No (07/15/2016 12:02:BRII [place]) Inf Hx Tuberculosis/Exposure: No (07/15/2016 12:02:BRII [place]) Inf Hx Hepatitis B,C: No (07/15/2016 12:02:BRII [place]) Inf Hx Rash or Viral Illness: No (07/15/2016 12:02:BRII [place]) GENETIC HISTORY Gen Hx Age >=35 at ANTONIA: No (07/15/2016 12:02:Triny Torres RN) Gen Hx Thalassemia: No (07/15/2016 12:02:BRII [place]) Gen Hx Congenital Heart Defect: No (07/15/2016 12:02:Triny Torres RN) Gen Hx Neural Tube Defect: No (07/15/2016 12:02:Triny Torres RN) Gen Hx Down's Syndrome: No (07/15/2016 12:02:Triny Torres [facility]) Gen Hx Xavier-Sachs: No (07/15/2016 12:02:Triny Torres [facility]) Gen Hx Shailesh: No (07/15/2016 12:02:BRII [place]) Gen Hx Familial Dysautonomia: No (07/15/2016 12:02:Triny Torres Fern) Gen Hx Sickle Cell Disease/Trait: No (07/15/2016 12:02:BRII [place]) Gen Hx Hemophilia/Blood Disorder: No (07/15/2016 12:02:BRII [place]) Gen Hx Muscular Dystrophy: No (07/15/2016 12:02:BRII [place]) Gen Hx Cystic Fibrosis: No (07/15/2016 12:02:BRII [place]) Gen Hx Huntingtons Chorea: No (07/15/2016 12:02:BRII [place]) Gen Hx Mental Retardation/Autism: No (07/15/2016 12:02:BRII [place]) Gen Hx Tested for Fragile X: No (07/15/2016 12:02:BRII [place]) Gen Hx Other Inher/Chromosomal: No (07/15/2016 12:02:BRII [place]) Gen Hx Maternal Metabolic DO: No (07/15/2016 12:02:BIRI [place]) Gen Hx Pt Father or FOB Defect: No (07/15/2016 12:02:BRII [place]) Gen Hx Other Genetic History: No (07/15/2016 12:02:BRII [place]) Gen Hx Drugs/Meds since LMP: Yes (07/15/2016 12:02:Gladis Newell RN)
--- NOTE | 2016-07-16 10:47 | L&D Discharge Summary ---
OB Discharge Summary Datetime Report Generated by CPN: 07/16/2016 10:45 DISCHARGE DIAGNOSIS Gestation: 40.3 Number of Babies in Womb: 1 Parity: 1
--- NOTE | 2016-07-16 10:47 | L&D Admission Assessment ---
LD ADM ASMT Datetime Report Generated by CPN: 07/16/2016 10:45 PATIENT ASSESSMENT Assessment Type: Ongoing Assessment (07/15/2016 20:00:Gladis Newell, RN) Assessment Type: Admission Assessment (07/15/2016 12:37:Triny Camp, RNC) WEIGHT Weight (lb): 205 (07/16/2016 10:05:QS system process) Weight (lb): 205 (07/15/2016 16:35:QS system process) Weight (lb): 205 (07/15/2016 13:12:QS system process) Weight (kg): 93.2 (07/16/2016 10:05:QS system process) Weight (kg): 93.2 (07/15/2016 16:35:QS system process) Weight (kg): 93.2 (07/15/2016 13:12:QS system process) Total Wt Gain (lb): -3 (07/16/2016 10:05:QS system process) Total Wt Gain (lb): -3 (07/15/2016 16:35:QS system process) Total Wt Gain (lb): -3 (07/15/2016 13:12:QS system process) Wt Gain (kg): -1.5 (07/16/2016 10:05:QS system process) Wt Gain (kg): -1.5 (07/15/2016 16:35:QS system process) Wt Gain (kg): -1.5 (07/15/2016 13:12:QS system process) BMI: 40.0 (07/16/2016 10:05:QS system process) BMI: 40.0 (07/15/2016 16:35:QS system process) ONSET OF LABOR Onset of Labor: 07/15/2016 17:35 (07/15/2016 12:02:Zara Allen RN) PAIN Pain Scale: 0 (07/16/2016 08:10:Claudia Arcos RN) Pain Scale: 0 (07/16/2016 01:55:Gladis Newell, RN) Pain Scale: 0 (07/16/2016 01:35:Gladis Newell, RN) Pain Scale: 1 (07/16/2016 01:25:Gladis Newell, RN) Pain Scale: 1 (07/16/2016 01:10:Gladis Newell, RN) Pain Scale: 1 (07/16/2016 00:55:Gladis Newell, RN) Pain Scale: 0 (07/16/2016 00:10:Gladis Newell, RN) Pain Scale: 4 (07/15/2016 23:15:Gladis Newell, RN) Pain Scale: 3 (07/15/2016 22:15:Gladis Newell, RN) Pain Scale: 1 (07/15/2016 20:30:Gladis Newell, RN) Pain Scale: 2 (07/15/2016 12:37:BRII [place]) Pain Presence: None/Denies (07/16/2016 08:10:Claudia Arcos RN) Pain Presence: None/Denies (07/16/2016 01:55:Gladis Newell, RN) Pain Presence: None/Denies (07/16/2016 01:35:Gladis Newell, RN) Pain Presence: Intermittent (07/16/2016 01:25:Gladis Newell, RN) Pain Presence: Intermittent (07/16/2016 01:10:Gladis Newell, RN) Pain Presence: Intermittent (07/16/2016 00:55:Gladis Newell, RN) Pain Presence: None/Denies (07/16/2016 00:10:Gladis Newell, RN) Pain Presence: Intermittent (07/15/2016 23:15:Gladis Newell, RN) Pain Presence: Intermittent (07/15/2016 22:15:Gladis Newell, RN) Pain Presence: Intermittent (07/15/2016 20:30:Gladis Newell RN) Pain Presence: Intermittent (07/15/2016 12:37:BRII [place]) Pain Type: N/A (07/16/2016 08:10:Claudia Arcos RN) Pain Type: N/A (07/16/2016 01:55:Gladis Newell RN) Pain Type: N/A (07/16/2016 01:35:Gladis Newell RN) Pain Type: Pressure (07/16/2016 01:25:Gladis Newell RN) Pain Type: Pressure (07/16/2016 01:10:Gladis Newell RN) Pain Type: Pressure (07/16/2016 00:55:Gladis Newell RN) Pain Type: N/A (07/16/2016 00:10:Gladis Newell RN) Pain Type: Pressure (07/15/2016 23:15:Gladis Newell RN) Pain Type: Pressure (07/15/2016 22:15:Gladis Newell RN) Pain Type: Pressure (07/15/2016 20:30:Gladis Newell RN) Pain Type: Contraction (07/15/2016 12:37:BRII [place]) Pain Location: Perineum (07/16/2016 01:25:Gladis Newell RN) Pain Location: Perineum (07/16/2016 01:10:Gladis Newell RN) Pain Location: Perineum (07/16/2016 00:55:Gladis Newell RN) Pain Location: Perineum (07/15/2016 23:15:Gladis Newell RN) Pain Location: Abdomen (07/15/2016 22:15:Gladis Newell RN) Pain Location: Perineum (07/15/2016 20:30:Gladis Newell RN) Pain Location: Back (07/15/2016 12:37:BRII [place]) Pain Goal: 1 (07/15/2016 22:15:Gladis Newell RN) Pain Goal: 2 (07/15/2016 12:37:BRII [place]) Pain Related to Contraction: Yes (07/15/2016 12:37:Triny Camp, RNC) CONTRACTIONS Frequency (min): 1-1.5 (07/15/2016 23:45:Gladis Newell, RN) Frequency (min): 2-3 (07/15/2016 23:30:Gladis Newell, RN) Frequency (min): 1.5-2.5 (07/15/2016 23:15:Gladis Newell, RN) Frequency (min): 1.5-3 (07/15/2016 23:00:Gladis Newell, RN) Frequency (min): 1-2.5 (07/15/2016 22:45:Gladis Newell, RN) Frequency (min): 1-2 (07/15/2016 22:30:Gladis Newell, RN) Frequency (min): 1.5-3 (07/15/2016 22:15:Gladis Newell, RN) Frequency (min): 1-3 (07/15/2016 22:00:Gladis Newell, RN) Frequency (min): 1.5-3 (07/15/2016 21:45:Gladis Newell, RN) Frequency (min): 1.5-2.5 (07/15/2016 21:30:Gladis Newell, RN) Frequency (min): 1.5-3 (07/15/2016 21:15:Gladis Newell, RN) Frequency (min): 1.5-3 (07/15/2016 21:00:Gladis Newell, RN) Frequency (min): irregular (07/15/2016 20:45:Gladis Newell, RN) Frequency (min): 1-6.5 (07/15/2016 20:30:Gladis Newell, RN) Frequency (min): 2-5 (07/15/2016 20:15:Gladis Newell, RN) Frequency (min): 2-4 (07/15/2016 20:00:Gladis Newell, RN) Frequency (min): 1.5-3 (07/15/2016 19:45:Gladis Newell, RN) Frequency (min): 2-3 (07/15/2016 19:30:Gladis Newell, RN) Frequency (min): 1-3 (07/15/2016 19:15:Gladis Newell, RN) Frequency (min): 2-3 (07/15/2016 19:15:Ricaleon Patton, RN) Frequency (min): 1.5-2 (07/15/2016 19:00:Ricaleon Patton, RN) Frequency (min): 2 (07/15/2016 18:45:Ricaleon Patton, RN) Frequency (min): 2-4 (07/15/2016 18:30:Ricaleon Patton, RN) Frequency (min): 2-3 (07/15/2016 18:15:Ricaleon Patton, RN) Frequency (min): 2-2.5 (07/15/2016 18:00:Ricaleon Patton, RN) Frequency (min): 2-4.5 (07/15/2016 17:45:Ricaleon Patton, RN) Frequency (min): 2-3.5 (07/15/2016 17:30:Ricaleon Patton, RN) Frequency (min): 2.5-3 (07/15/2016 17:15:Ricaleon Patton, RN) Frequency (min): 2-5 (07/15/2016 17:00:Ricaleon Patton, RN) Frequency (min): 2-4 (07/15/2016 16:45:Ricaleon Patton, RN) Frequency (min): 5 (07/15/2016 16:30:Ricaleon Patton, RN) Frequency (min): 3-4.5 (07/15/2016 16:15:Ricaleon Patton, RN) Frequency (min): 2-3 (07/15/2016 16:00:Rica Patton RN) Frequency (min): irritability (07/15/2016 15:45:Rica Patton RN) Frequency (min): irregular (07/15/2016 14:45:Triny Camp, RNC) Frequency (min): irregular (07/15/2016 13:30:Triny Camp, RNC) Frequency (min): irregular (07/15/2016 13:00:Triny Camp, RNC) Frequency (min): 8-9 (07/15/2016 12:37:Triny Camp, RNC) Duration (sec): 50-70 (07/15/2016 23:45:Gladis Newell, RN) Duration (sec): 50-90 (07/15/2016 23:30:Gladis Newell, RN) Duration (sec): 60-80 (07/15/2016 23:15:Gladis Newell, RN) Duration (sec): 50-90 (07/15/2016 23:00:Gladis Newell, RN) Duration (sec): 50-80 (07/15/2016 22:45:Gladis Newell, RN) Duration (sec): 60-80 (07/15/2016 22:30:Gladis Newell, RN) Duration (sec): 50-80 (07/15/2016 22:15:Gladis Newell, RN) Duration (sec): 60-90 (07/15/2016 22:00:Gladis Newell, RN) Duration (sec): 50-80 (07/15/2016 21:45:Gladis Newell, RN) Duration (sec): 50-80 (07/15/2016 21:30:Gladis Newell, RN) Duration (sec): 50-70 (07/15/2016 21:15:Gladis Newell, RN) Duration (sec): 50-80 (07/15/2016 21:00:Gladis Newell, RN) Duration (sec): 40-60 (07/15/2016 20:45:Gladis Newell, RN) Duration (sec): 50-70 (07/15/2016 20:30:Gladis Newell, RN) Duration (sec): 40-70 (07/15/2016 20:15:Gladis Newell RN) Duration (sec): 40-70 (07/15/2016 20:00:Gladis Newell RN) Duration (sec): 50-701 (07/15/2016 19:45:Gladis Newell RN) Duration (sec): 50-80 (07/15/2016 19:30:Gladis Newell RN) Duration (sec): 60-90 (07/15/2016 19:15:Gladis Newell RN) Duration (sec): 60-70 (07/15/2016 19:15:Rica Patton RN) Duration (sec): 60-70 (07/15/2016 19:00:Rica Patton RN) Duration (sec): 50-60 (07/15/2016 18:45:Rica Patton RN) Duration (sec): 50-70 (07/15/2016 18:30:Rica Patton RN) Duration (sec): 50-70 (07/15/2016 18:15:Rica Patton RN) Duration (sec): 60-70 (07/15/2016 18:00:Rica Patton RN) Duration (sec): 60-70 (07/15/2016 17:45:Rica Patton RN) Duration (sec): 50-70 (07/15/2016 17:30:Rica Patton RN) Duration (sec): 50-70 (07/15/2016 17:15:Rica Patton RN) Duration (sec): 50-70 (07/15/2016 17:00:Rica Patton RN) Duration (sec): 60-80 (07/15/2016 16:45:Rica Patton RN) Duration (sec): 70-80 (07/15/2016 16:30:Rica Patton RN) Duration (sec): 60-80 (07/15/2016 16:15:Rica Patton RN) Duration (sec): 50-70 (07/15/2016 16:00:Rica Patton RN) Duration (sec): 40-60 (07/15/2016 14:45:BRII [place]) Duration (sec): 30-50 (07/15/2016 13:30:Triny Camp, RNC) Duration (sec): 50-60 (07/15/2016 13:00:Triny Torres, RNC) Duration (sec): 50-70 (07/15/2016 12:37:Triny Torres RNC) Quality: Strong (07/15/2016 23:45:Gladis Newell, RN) Quality: Strong (07/15/2016 23:30:Gladis Newell, RN) Quality: Strong (07/15/2016 23:15:Gladis Newell, RN) Quality: Strong (07/15/2016 23:00:Gladis Newell, RN) Quality: Strong (07/15/2016 22:45:Gladis Newell, RN) Quality: Strong (07/15/2016 22:30:Gladis Newell, RN) Quality: Strong (07/15/2016 22:15:Gladis Newell, RN) Quality: Strong (07/15/2016 22:00:Gladis Newell RN) Quality: Strong (07/15/2016 21:45:Gladis Newell, RN) Quality: Strong (07/15/2016 21:30:Gladis Newell, RN) Quality: Moderate to Strong (07/15/2016 21:15:Gladis Newell, RN) Quality: Moderate to Strong (07/15/2016 21:00:Gladis Newell, RN) Quality: Moderate to Strong (07/15/2016 20:45:Gladis Newell, RN) Quality: Moderate to Strong (07/15/2016 20:30:Gladis Newell, RN) Quality: Moderate to Strong (07/15/2016 20:15:Gladis Newell, RN) Quality: Moderate (07/15/2016 20:00:Gladis Newell, RN) Quality: Moderate (07/15/2016 19:45:Gladis Newell RN) Quality: Moderate (07/15/2016 19:30:Gladis Newell, RN) Quality: Moderate (07/15/2016 19:15:Gladis Newell, RN) Quality: Mild/Moderate (07/15/2016 19:15:Rica Patton RN) Quality: Mild/Moderate (07/15/2016 19:00:Rica Patton RN) Quality: Mild/Moderate (07/15/2016 18:45:Rica Patton RN) Quality: Mild/Moderate (07/15/2016 18:30:Rica Patton RN) Quality: Mild/Moderate (07/15/2016 18:15:Rica Patton RN) Quality: Mild/Moderate (07/15/2016 18:00:Rica Patton RN) Quality: Mild/Moderate (07/15/2016 17:45:Rica Patton RN) Quality: Mild/Moderate (07/15/2016 17:30:Rica Patton RN) Quality: Mild/Moderate (07/15/2016 17:15:Rica Patton RN) Quality: Mild/Moderate (07/15/2016 17:00:Rica Patton RN) Quality: Mild/Moderate (07/15/2016 16:45:Rica Patton RN) Quality: Mild/Moderate (07/15/2016 16:30:Rica Patton RN) Quality: Mild (07/15/2016 16:15:Rica Patton RN) Quality: Mild (07/15/2016 16:00:Rica Patton RN) Quality: Mild (07/15/2016 15:45:Rica Patton RN) Quality: Mild (07/15/2016 15:15:Rica Patton RN) Quality: Mild (07/15/2016 14:45:Triny Torres RNC) Quality: Mild (07/15/2016 13:30:Triny Torres RNC) Quality: Mild (07/15/2016 13:00:Triny Torres RNC) Quality: Mild (07/15/2016 12:37:Triny Torres RNC) Pattern: Normal: <= 5 Contractions in 10 Minutes (07/15/2016 23:45:Gladis Newell RN) Pattern: Normal: <= 5 Contractions in 10 Minutes (07/15/2016 23:30:Gladis Newell RN) Pattern: Normal: <= 5 Contractions in 10 Minutes (07/15/2016 23:15:Gladis Newell RN) Pattern: Normal: <= 5 Contractions in 10 Minutes (07/15/2016 23:00:Gladis Newell RN) Pattern: Normal: <= 5 Contractions in 10 Minutes (07/15/2016 22:45:Gladis Newell, RN) Pattern: Normal: <= 5 Contractions in 10 Minutes (07/15/2016 22:30:Gladis Newell, RN) Pattern: Normal: <= 5 Contractions in 10 Minutes (07/15/2016 22:15:Gladis Newell, RN) Pattern: Normal: <= 5 Contractions in 10 Minutes (07/15/2016 22:00:Gladis Newell, RN) Pattern: Normal: <= 5 Contractions in 10 Minutes (07/15/2016 21:45:Gladis Newell, RN) Pattern: Normal: <= 5 Contractions in 10 Minutes (07/15/2016 21:30:Gladis Newell, RN) Pattern: Normal: <= 5 Contractions in 10 Minutes (07/15/2016 21:15:Gladis Newell, RN) Pattern: Normal: <= 5 Contractions in 10 Minutes (07/15/2016 21:00:Gladis Newell, RN) Pattern: Normal: <= 5 Contractions in 10 Minutes (07/15/2016 20:45:Gladis Newell, RN) Pattern: Normal: <= 5 Contractions in 10 Minutes (07/15/2016 20:30:Gladis Newell, RN) Pattern: Normal: <= 5 Contractions in 10 Minutes (07/15/2016 20:15:Gladis Newell, RN) Pattern: Normal: <= 5 Contractions in 10 Minutes (07/15/2016 20:00:Gladis Newell, RN) Pattern: Normal: <= 5 Contractions in 10 Minutes (07/15/2016 19:45:Gladis Newell, RN) Pattern: Normal: <= 5 Contractions in 10 Minutes (07/15/2016 19:30:Gladis Newell, RN) Pattern: Normal: <= 5 Contractions in 10 Minutes (07/15/2016 19:15:Gladis Newell, RN) Pattern: Normal: <= 5 Contractions in 10 Minutes (07/15/2016 19:15:Rica Patton RN) Pattern: Normal: <= 5 Contractions in 10 Minutes (07/15/2016 19:00:Rica Patton RN) Pattern: Normal: <= 5 Contractions in 10 Minutes (07/15/2016 18:45:Rica Patton RN) Pattern: Normal: <= 5 Contractions in 10 Minutes (07/15/2016 18:30:Rica Patton RN) Pattern: Normal: <= 5 Contractions in 10 Minutes (07/15/2016 18:15:Rica Patton RN) Pattern: Normal: <= 5 Contractions in 10 Minutes (07/15/2016 18:00:Rica Patton RN) Pattern: Normal: <= 5 Contractions in 10 Minutes (07/15/2016 17:45:Rica Patton RN) Pattern: Normal: <= 5 Contractions in 10 Minutes (07/15/2016 17:30:Rica Patton RN) Pattern: Normal: <= 5 Contractions in 10 Minutes (07/15/2016 17:15:Rica Patton RN) Pattern: Normal: <= 5 Contractions in 10 Minutes (07/15/2016 17:00:Rica Patton RN) Pattern: Normal: <= 5 Contractions in 10 Minutes (07/15/2016 16:45:Rica Patton RN) Pattern: Normal: <= 5 Contractions in 10 Minutes (07/15/2016 16:30:Rica Patton RN) Pattern: Normal: <= 5 Contractions in 10 Minutes (07/15/2016 16:15:Rica Patton RN) Pattern: Normal: <= 5 Contractions in 10 Minutes (07/15/2016 16:00:Rica Patton RN) Pattern: Normal: <= 5 Contractions in 10 Minutes (07/15/2016 15:45:Rica Patton RN) Pattern: Normal: <= 5 Contractions in 10 Minutes (07/15/2016 15:15:Rica Patton RN) Pattern: Normal: <= 5 Contractions in 10 Minutes (07/15/2016 14:45:BRII [place]) Pattern: Normal: <= 5 Contractions in 10 Minutes (07/15/2016 13:30:BRII [place]) Resting Tone [place]: Relaxed (07/15/2016 23:45:Gladis Newell RN) Resting Tone [place]: Relaxed (07/15/2016 23:30:Gladis Newell RN) Resting Tone [place]: Relaxed (07/15/2016 23:15:Gladis Newell RN) Resting Tone [place]: Relaxed (07/15/2016 23:00:Gladis Newell RN) Resting Tone [place]: Relaxed (07/15/2016 22:45:Gladis Newell RN) Resting Tone [place]: Relaxed (07/15/2016 22:30:Gladis Newell RN) Resting Tone [place]: Relaxed (07/15/2016 22:15:Gladis Newell RN) Resting Tone [place]: Relaxed (07/15/2016 22:00:Gladis Newell RN) Resting Tone [place]: Relaxed (07/15/2016 21:45:Gladis Newell RN) Resting Tone [place]: Relaxed (07/15/2016 21:30:Gladis Newell RN) Resting Tone [place]: Relaxed (07/15/2016 21:15:Gladis Newell RN) Resting Tone [place]: Relaxed (07/15/2016 21:00:Gladis Newell RN) Resting Tone [place]: Relaxed (07/15/2016 20:45:Gladis Newell RN) Resting Tone [place]: Relaxed (07/15/2016 20:30:Gladis Newell RN) Resting Tone [place]: Relaxed (07/15/2016 20:15:Gladis Newell RN) Resting Tone [place]: Relaxed (07/15/2016 20:00:Gladis Newell RN) Resting Tone [place]: Relaxed (07/15/2016 19:45:Gladis Newell RN) Resting Tone [place]: Relaxed (07/15/2016 19:30:Gladis Newell RN) Resting Tone [place]: Relaxed (07/15/2016 19:15:Gladis Newell RN) Resting Tone [place]: Relaxed (07/15/2016 19:15:Rica Patton RN) Resting Tone [place]: Relaxed (07/15/2016 19:00:Rica Patton RN) Resting Tone [place]: Relaxed (07/15/2016 18:45:Rica Patton RN) Resting Tone [place]: Relaxed (07/15/2016 18:30:Rica Patton RN) Resting Tone [place]: Relaxed (07/15/2016 18:15:Rica Patton RN) Resting Tone [place]: Relaxed (07/15/2016 18:00:Rica Patton RN) Resting Tone [place]: Relaxed (07/15/2016 17:45:Rica Patton RN) Resting Tone [place]: Relaxed (07/15/2016 17:30:Rica Patton RN) Resting Tone [place]: Relaxed (07/15/2016 17:15:Rica Patton RN) Resting Tone [place]: Relaxed (07/15/2016 17:00:Rica Patton RN) Resting Tone [place]: Relaxed (07/15/2016 16:45:Rica Patton RN) Resting Tone [place]: Relaxed (07/15/2016 16:30:Rica Patton RN) Resting Tone [place]: Relaxed (07/15/2016 16:15:Rica Patton RN) Resting Tone [place]: Relaxed (07/15/2016 16:00:Rica Patton RN) Resting Tone [place]: Relaxed (07/15/2016 15:45:Rica Patton RN) Resting Tone [place]: Relaxed (07/15/2016 15:15:Rica Patton RN) Resting Tone [place]: Relaxed (07/15/2016 14:45:Triny Torres, RNC) Resting Tone [place]: Relaxed (07/15/2016 13:30:Triny Torres, RNC) Resting Tone [place]: Relaxed (07/15/2016 13:00:Triny Torres, RNC) Resting Tone [place]: Relaxed (07/15/2016 12:37:Triny Camp, RNC) Contraction Comments: irritability (07/15/2016 16:45:Rica Patton RN) Contraction Comments: irritability (07/15/2016 16:30:Rica Patton RN) Contraction Comments: irritability (07/15/2016 16:15:Rica Patton RN) Contraction Comments: irritability (07/15/2016 16:00:Rica Patton RN) Contraction Comments: irritability (07/15/2016 15:15:Rica Patton RN) VAGINAL EXAM Dilatation (cm): 10.0 (07/15/2016 23:33:Gladis Newell, RN) Dilatation (cm): 9.5 (07/15/2016 23:12:Gladis Newell, RN) Dilatation (cm): 9.5 (07/15/2016 22:44:Gladis Newell, RN) Dilatation (cm): 8.5 (07/15/2016 22:23:Gladis Newell, RN) Dilatation (cm): 7.0 (07/15/2016 21:36:Gladis Newell RN) Dilatation (cm): 6.0 (07/15/2016 21:12:Gladis Newell RN) Dilatation (cm): 4.0 (07/15/2016 17:35:Rica Patton RN) Dilatation (cm): 3.0 (07/15/2016 12:37:Triny Torres [facility]) Effacement (%): 90 (07/15/2016 22:44:Gladis Newell RN) Effacement (%): 90 (07/15/2016 22:23:Gladis Newell RN) Effacement (%): 90 (07/15/2016 21:36:Gladis Newell RN) Effacement (%): 90 (07/15/2016 21:12:Gladis Newell RN) Effacement (%): 80 (07/15/2016 17:35:Rica Patton RN) Station: 1 (07/15/2016 23:33:Gladis Newell, RN) Station: 1 (07/15/2016 23:12:Gladis Newell RN) Station: 0 (07/15/2016 22:44:Gladis Newell RN) Station: 0 (07/15/2016 22:23:Gladis Newell, RN) Station: -1 (07/15/2016 21:36:Gladis Newell RN) Station: -1 (07/15/2016 21:12:Gladis Newell RN) Station: -1 (07/15/2016 17:35:Rica Patton RN) Presentation on Admission: Vertex (07/15/2016 12:37:BRII [place]) Membranes Status: Ruptured (07/15/2016 17:35:Rica Patton RN) Membranes Status: Intact (07/15/2016 12:37:BRII [place]) Membranes Rupture D/ (07/15/2016 12:02:Gladis Newell RN) ROM Method: Artificial (07/15/2016 17:35:Rica Patton RN) Amniotic Fluid Color: Clear (07/15/2016 17:35:Rica Patton RN) Amniotic Fluid Amount: Small (07/15/2016 17:35:Rica Patton RN) DELACRUZ'S SCORE Delacruz's Score Dilatation (cm): 3-4 cms (07/15/2016 12:37:BRII [place]) Delacruz's Score Effacement (%): 60-70_ effaced (07/15/2016 12:37:BRII [place]) Delacruz's Score Station: minus 1 to 0 (07/15/2016 12:37:BRII [place]) Delacruz's Score Consistency: Soft (07/15/2016 12:37:BRII [place]) Delacruz's Score Position: Midposition (07/15/2016 12:37:BRII [place]) Total Delacruz's Score: 9 (07/15/2016 12:37:QS system process) Delacruz's Score Text: 9-14 = Usually no failure for induction (07/15/2016 12:37:QS system process) NEURO Level of Consciousness: Fully Conscious (07/15/2016 20:00:Gladis Newell RN) Level of Consciousness: Fully Conscious (07/15/2016 12:37:BRII [place]) DTR's/Clonus: DTRs 2+; No Clonus (07/15/2016 20:00:Gladis Newell RN) DTR's/Clonus: DTRs 2+; No Clonus (07/15/2016 12:37:Triny Torres RN) Headache: Denies (07/15/2016 20:00:Gladis Newell RN) Headache: Denies (07/15/2016 12:37:BRII [place]) Dizziness: No (07/15/2016 20:00:Gladis Newell RN) Dizziness: No (07/15/2016 12:37:BRII [place]) Blurred Vision: No (07/15/2016 20:00:Gladis Newell RN) Blurred Vision: No (07/15/2016 12:37:BRII [place]) Extremity Numbness/Tingling : None (07/15/2016 20:00:Gladis Newell RN) Extremity Numbness/Tingling : None (07/15/2016 12:37:BRII [place]) Extremity Movement: Full Range of Motion (07/15/2016 20:00:Gladis Newell RN) Extremity Movement: Full Range of Motion (07/15/2016 12:37:Triny Torres RN) CARDIOVASCULAR Heart Rhythm: Regular (07/15/2016 20:00:Gladis Newell RN) Heart Rhythm: Regular (Annotations: s1s2 noted with no murmur or arrythmia auscultated) (07/15/2016 12:37:BRII [place]) Nailbeds: [place] (07/15/2016 20:00:Gladis Newell RN) Nailbeds: [place] (07/15/2016 12:37:BRII [place]) Capillary Refill: Less than 3 Seconds (07/15/2016 20:00:Gladis Newell RN) Capillary Refill: Less than 3 Seconds (07/15/2016 12:37:BRII [place]) Lower Extremities Edema: Bilateral Lower Extremities (07/15/2016 20:00:Gladis Newell RN) Lower Extremities Edema: Bilateral Lower Extremities (07/15/2016 12:37:BRII [place]) Lower Extremities Edema Degree: 2+ (07/15/2016 20:00:Gladis Newell RN) Lower Extremities Edema Degree: 1+ (07/15/2016 12:37:BRII [place]) Upper Extremities Edema: None (07/15/2016 20:00:Gladis Newell RN) Upper Extremities Edema: Bilateral Upper Extremities (07/15/2016 12:37:BRII [place]) Upper Extremities Edema Degree: None (07/15/2016 20:00:Gladis Newell RN) Upper Extremities Edema Degree: 1+ (07/15/2016 12:37:BRII [place]) Facial Edema: None (07/15/2016 20:00:Gladis Newell RN) Facial Edema: None (07/15/2016 12:37:BRII [place]) Rakan's Sign Left Leg: Negative (07/15/2016 20:00:Gladis Newell RN) Rakan's Sign Left Leg: Negative (07/15/2016 12:37:BRII [place]) Rakan's Sign Right Leg: Negative (07/15/2016 20:00:Gladis Newell RN) Rakan's Sign Right Leg: Negative (07/15/2016 12:37:BRII [place]) DVT RISK ASSESSMENT DVT Risk Age: Age less than 41 years (07/15/2016 20:00:Gladis Newell RN) DVT Risk Age: Age less than 41 years (07/15/2016 12:37:BRII [place]) DVT Risk BMI: BMI<31 (07/15/2016 20:00:Gladis Newell RN) DVT Risk BMI: BMI 41 to 50 (07/15/2016 12:37:BRII [place]) DVT Risk Surgery: None Applicable (07/15/2016 20:00:Gladis Newell RN) DVT Risk Surgery: History of Prior Major Surgery (07/15/2016 12:37:BRII [place]) DVT Risk Other: Women Only- or (<1 month) (07/15/2016 20:00:Gladis Newell RN) DVT Risk Other: Women Only- or (<1 month) (07/15/2016 12:37:BRII [place]) DVT Risk Total: 1 (07/15/2016 20:00:QS system process) DVT Risk Total: 4 (07/15/2016 12:37:QS system process) DVT Risk Text: Low Risk (<10%) No specific measures, early ambulation (07/15/2016 20:00:QS system process) DVT Risk Text: High Risk (20-40%)- Consider stockings, compresssion device, pharmacological therapy per hospital policy (07/15/2016 12:37:QS system process) RESPIRATORY Respiratory Effort: Unlabored; Regular Rhythm; Equal Expansion (07/15/2016 20:00:Gladis Newell, RN) Respiratory Effort: Unlabored; Regular Rhythm; Equal Expansion (07/15/2016 12:37:Triny Camp, RNC) Breath Sounds, Left: Clear and Equal (07/15/2016 20:00:Gladis Newell, RN) Breath Sounds, Left: Clear and Equal (07/15/2016 12:37:Triny Camp, RNC) Breath Sounds, Right: Clear and Equal (07/15/2016 20:00:Gladis Newell, RN) Breath Sounds, Right: Clear and Equal (07/15/2016 12:37:Triny Camp, RNC) Cough Productivity: None (07/15/2016 20:00:Gladis Newell, RN) Cough Productivity: None (07/15/2016 12:37:Triny Camp, RNC) GASTROINTESTINAL Nausea/Vomiting: Present (Annotations: nausea) (07/15/2016 20:00:Gladis Newell, RN) Nausea/Vomiting: Denies (07/15/2016 12:37:Triny Camp, RNC) Bowel Sounds: Normoactive (07/15/2016 20:00:Gladis Newell, RN) Bowel Sounds: Normoactive; All Quadrants (07/15/2016 12:37:Triny Camp, RNC) RUQ Epigastric Pain: Denies (07/15/2016 20:00:Gladis Newell, RN) RUQ Epigastric Pain: Denies (07/15/2016 12:37:Triny Camp, RNC) Bowel Patterns: Soft, Formed Stool (07/15/2016 20:00:Gladis Newell RN) Bowel Patterns: Constipation (07/15/2016 12:37:Triny Camp, RNC) Hemorrhoids: None (07/15/2016 20:00:Gladis Newell, RN) Hemorrhoids: Present (07/15/2016 12:37:Triny Camp, RNC) Diet Type: Regular diet (07/15/2016 20:00:Gladis Newell RN) Diet Type: Regular diet (07/15/2016 12:37:Triny Camp, RNC) Last Meal: 07/15/2016 09:00 (07/15/2016 12:37:Triny Camp, RNC) GENITOURINARY Bladder: Nondistended (07/15/2016 20:00:Gladis Newell RN) Bladder: Nondistended (07/15/2016 12:37:Triny Torres RNC) Catheter: Ward Draining to Bedside Bag (07/15/2016 20:00:Gladis Newell RN) Frequency of Urination: No (07/15/2016 20:00:Gladis Newell RN) Frequency of Urination: No (07/15/2016 12:37:Triny Torres RNC) Urination Burning: No (07/15/2016 20:00:Gladis Newell RN) Urination Burning: No (07/15/2016 12:37:Triny Torres RNC) CVA Tenderness: No (07/15/2016 20:00:Gladis Newell RN) CVA Tenderness: No (07/15/2016 12:37:Triny Torres, RNC) Vaginal Bleeding: None (07/15/2016 12:37:Triny Torres, RN) Vaginal Discharge Amount: Small (07/15/2016 20:00:Gladis Newell RN) Vaginal Discharge Amount: Small (07/15/2016 12:37:Triny Torres, RNC) Vaginal Discharge Color: White (07/15/2016 12:37:Triny Torres RNC) Vaginal Discharge Odor: Non-Odorous (07/15/2016 20:00:Gladis Newell RN) Vaginal Discharge Odor: Non-Odorous (07/15/2016 12:37:Triny Torres, RNC) Vaginal Discharge Character: Watery (07/15/2016 20:00:Gladis Newell RN) Vaginal Discharge Character: Thin (07/15/2016 12:37:Triny Torres, RNC) INTEGUMENTARY Skin Color: Normal for Race (07/15/2016 20:00:Gladis Newell RN) Skin Color: Normal for Race (07/15/2016 12:37:Triny Torres [facility]) Skin Temperature: Warm (07/15/2016 20:00:Gladis Newell RN) Skin Temperature: Warm (07/15/2016 12:37:Triny Torres [facility]) Skin Moisture: Dry (07/15/2016 20:00:Gladis Newell RN) Skin Moisture: Dry (07/15/2016 12:37:Triny Torres [facility]) Surgical Scars: abdominal x2 (07/15/2016 12:37:Triny Torres [facility]) Body Piercings/Tattoos: 2 tattoos (07/15/2016 12:37:Triny Torres, [facility]) ELIAN SKIN ASSESSMENT Elian Scale Sensory Perception: No Impairment- Responds to verbal commands. Has no sensory deficit which would limit ability to feel or voice pain or discomfort (07/15/2016 20:00:Gladis Newell RN) Elian Scale Sensory Perception: No Impairment- Responds to verbal commands. Has no sensory deficit which would limit ability to feel or voice pain or discomfort (07/15/2016 12:37:Triny Torres [facility]) Elian Scale Moisture: Rarely Moist- Skin is usually dry. Linen only requires changing at routine intervals (07/15/2016 20:00:Gladis Newell RN) Elian Scale Moisture: Rarely Moist- Skin is usually dry. Linen only requires changing at routine intervals (07/15/2016 12:37:BRII [place]) Elian Scale Activity: Bedfast- Confined to bed. (07/15/2016 20:00:Gladis Newell RN) Elian Scale Activity: Walks Frequently- Walks outside the room at least twice a day and inside room at least every 2 hours during the day. (07/15/2016 12:37:BRII [place]) Elian Scale Mobility: No Limitations- Makes major and frequent changes in position without assistance (07/15/2016 20:00:Gladis Newell RN) Elian Scale Mobility: No Limitations- Makes major and frequent changes in position without assistance (07/15/2016 12:37:BRII [place]) Elian Scale Nutrition: Excellent- Eats most of every meal. Never refuses a meal. Usually eats a total of 4 or more servings of meat and dairy products. Occasionally eats between meals. Does not require supplementation (07/15/2016 20:00:Gladis Newell RN) Elian Scale Nutrition: Excellent- Eats most of every meal. Never refuses a meal. Usually eats a total of 4 or more servings of meat and dairy products. Occasionally eats between meals. Does not require supplementation (07/15/2016 12:37:BRII [place]) Elian Scale Friction and Shear: No Apparent Problem- Moves in bed and in chair independently and has sufficient muscle strength to lift up completely during move. Maintains good position in bed or chair at all times (07/15/2016 20:00:Gladis Newell RN) Elian Scale Friction and Shear: No Apparent Problem- Moves in bed and in chair independently and has sufficient muscle strength to lift up completely during move. Maintains good position in bed or chair at all times (07/15/2016 12:37:BRII [place]) Elian Scale Total: 20 (07/15/2016 20:00:QS system process) Elian Scale Total: 23 (07/15/2016 12:37:QS system process) Elian Scale Risk: No Risk of Pressure Ulcer Noted at this Time (07/15/2016 20:00:QS system process) Elian Scale Risk: No Risk of Pressure Ulcer Noted at this Time (07/15/2016 12:37:QS system process) SUPPORT Family Support: Significant Other supportive, at bedside frequently; Family supportive (07/15/2016 20:00:Gladis Newell RN) Family Support: Significant Other supportive, at bedside frequently; Family supportive (07/15/2016 12:37:Triny Camp, RNC) Emotional State: Calm/Relaxed (07/15/2016 20:00:Gladis Newell RN) Emotional State: Calm/Relaxed (07/15/2016 12:37:Triny Camp, RNC) SAFETY Call Webb Within Reach: Yes (07/15/2016 20:00:Gladis Newell RN) Call Webb Within Reach: Yes (07/15/2016 12:37:Triny Camp, RNC) Side Rails Up: Yes (07/15/2016 20:00:Gladis Newell RN) Side Rails Up: Yes (07/15/2016 12:37:Triny Camp, RNC) Bed Wheels Locked: Yes (07/15/2016 20:00:Gladis Newell RN) Bed Wheels Locked: Yes (07/15/2016 12:37:BRII [place]) Arm Bands Present: Yes (07/15/2016 20:00:Gladis Newell RN) Arm Bands Present: Yes (07/15/2016 12:37:BRII [place]) Isolation: [place] (07/15/2016 20:00:Gladis Newell RN) Isolation: [place] (07/15/2016 12:37:BRII [place]) FALL SCREEN Fall Risk History of Falling: (0) No (07/15/2016 12:37:BRII [place]) Fall Risk Secondary Diagnosis: (0) No (07/15/2016 12:37:BRII [place]) Fall Risk Ambulatory Aid: (0) None/Bedrest/Wheelchair/Nurse Assist (07/15/2016 12:37:BRII [place]) Fall Risk IV Therapy: (0) No (07/15/2016 12:37:BRII [place]) Fall Risk Gait: (0) Normal/Bedrest/Immobile (07/15/2016 12:37:BRII [place]) Fall Risk Mental Status: (0) Oriented to Own Ability (07/15/2016 12:37:BRII [place]) Fall Risk Score: 0 (07/15/2016 12:37:QS system process) Fall Risk Score Definition: No Risk: No action required (07/15/2016 12:37:QS system process) RECENT TRAVEL/INFECTIOUS DISEASE Recent Exp Communicable Disease: No (07/15/2016 12:37:Triny Camp, RNC) Cough or Fever: No (07/15/2016 12:37:Triny Camp, RNC) Foreign Travel Past 10 Days: No (07/15/2016 12:37:Triny Camp, RNC) Open Wounds or Sores: No (07/15/2016 12:37:Triny Camp, RNC) Prior Antibiotic Resistance Tx: No (07/15/2016 12:37:Triny Camp, RNC) Cultures Obtained: Not Applicable (07/15/2016 12:37:Triny Camp, RNC) Isolation Initiated: No (07/15/2016 12:37:Triny Camp, RNC) Pt/Family Education: Not Applicable (07/15/2016 12:37:Triny Camp, RNC) BABY A FHR Baseline Rate (bpm) Baby A: 175 (07/15/2016 23:45:Gladis Newell RN) FHR Baseline Rate (bpm) Baby A: 170 (07/15/2016 23:30:Gladis Newell RN) FHR Baseline Rate (bpm) Baby A: 175 (07/15/2016 23:00:Gladis Newell RN) FHR Baseline Rate (bpm) Baby A: 175 (07/15/2016 22:45:Gladis Newell RN) FHR Baseline Rate (bpm) Baby A: 175 (07/15/2016 22:30:Gladis Newell RN) FHR Baseline Rate (bpm) Baby A: 170 (07/15/2016 22:15:Gladis Newell RN) FHR Baseline Rate (bpm) Baby A: 150 (07/15/2016 22:00:Gladis Newell RN) FHR Baseline Rate (bpm) Baby A: 155 (07/15/2016 21:45:Gladis Newell RN) FHR Baseline Rate (bpm) Baby A: 155 (07/15/2016 21:30:Gladis Newell RN) FHR Baseline Rate (bpm) Baby A: 150 (07/15/2016 21:15:Gladis Newell RN) FHR Baseline Rate (bpm) Baby A: 150 (07/15/2016 21:00:Gladis Newell RN) FHR Baseline Rate (bpm) Baby A: 150 (07/15/2016 20:45:Gladis Newell RN) FHR Baseline Rate (bpm) Baby A: 150 (07/15/2016 20:30:Gladis Newell RN) FHR Baseline Rate (bpm) Baby A: 150 (07/15/2016 20:15:Gladis Newell RN) FHR Baseline Rate (bpm) Baby A: 140 (07/15/2016 20:00:Gladis Newell RN) FHR Baseline Rate (bpm) Baby A: 155 (07/15/2016 19:45:Gladis Newell RN) FHR Baseline Rate (bpm) Baby A: 155 (07/15/2016 19:30:Gladis Newell RN) FHR Baseline Rate (bpm) Baby A: 155 (07/15/2016 19:15:Gladis Newell RN) FHR Baseline Rate (bpm) Baby A: 155 (07/15/2016 19:15:Rica Patton RN) FHR Baseline Rate (bpm) Baby A: 155 (07/15/2016 19:00:Rica Patton RN) FHR Baseline Rate (bpm) Baby A: 155 (07/15/2016 18:45:Rica Patton RN) FHR Baseline Rate (bpm) Baby A: 150 (07/15/2016 18:30:Rica Patton RN) FHR Baseline Rate (bpm) Baby A: 150 (07/15/2016 18:15:Rica Patton RN) FHR Baseline Rate (bpm) Baby A: 150 (07/15/2016 18:00:Rica Patton RN) FHR Baseline Rate (bpm) Baby A: 150 (07/15/2016 17:45:Rica Patton RN) FHR Baseline Rate (bpm) Baby A: 150 (07/15/2016 17:30:Rica Patton RN) FHR Baseline Rate (bpm) Baby A: 145 (07/15/2016 17:15:Rica Patton RN) FHR Baseline Rate (bpm) Baby A: 150 (07/15/2016 17:00:Rica Patton RN) FHR Baseline Rate (bpm) Baby A: 140 (07/15/2016 16:45:Rica Patton RN) FHR Baseline Rate (bpm) Baby A: 140 (07/15/2016 16:30:Rica Patton RN) FHR Baseline Rate (bpm) Baby A: 145 (07/15/2016 16:15:Rica Patton RN) FHR Baseline Rate (bpm) Baby A: 145 (07/15/2016 16:00:Rica Patton RN) FHR Baseline Rate (bpm) Baby A: 145 (07/15/2016 15:45:Rica Patton RN) FHR Baseline Rate (bpm) Baby A: 140 (07/15/2016 15:15:Rica Patton RN) FHR Baseline Rate (bpm) Baby A: 150 (07/15/2016 14:45:BRII [place]) FHR Baseline Rate (bpm) Baby A: 155 (07/15/2016 13:30:BRII [place]) FHR Baseline Rate (bpm) Baby A: 145 (07/15/2016 13:00:BRII [place]) Variability Baby A: Moderate 6-25 bpm (07/15/2016 23:45:Gladis Newell RN) Variability Baby A: Moderate 6-25 bpm (07/15/2016 23:30:Gladis Newell RN) Variability Baby A: Moderate 6-25 bpm (07/15/2016 23:15:Gladis Newell RN) Variability Baby A: Minimal - Undetectable to <=5 bpm (07/15/2016 23:00:Gladis Newell RN) Variability Baby A: Moderate 6-25 bpm (07/15/2016 22:45:Gladis Newell RN) Variability Baby A: Moderate 6-25 bpm (07/15/2016 22:30:Gladis Newell RN) Variability Baby A: Moderate 6-25 bpm (07/15/2016 22:15:Gladis Newell RN) Variability Baby A: Moderate 6-25 bpm (07/15/2016 22:00:Gladis Newell RN) Variability Baby A: Moderate 6-25 bpm (07/15/2016 21:45:Gladis Newell RN) Variability Baby A: Moderate 6-25 bpm (07/15/2016 21:30:Gladis Newell RN) Variability Baby A: Moderate 6-25 bpm (07/15/2016 21:15:Gladis Newell RN) Variability Baby A: Moderate 6-25 bpm (07/15/2016 21:00:Gladis Newell RN) Variability Baby A: Moderate 6-25 bpm (07/15/2016 20:45:Gladis Newell RN) Variability Baby A: Moderate 6-25 bpm (07/15/2016 20:30:Gladis Nweell RN) Variability Baby A: Moderate 6-25 bpm (07/15/2016 20:15:Gladis Newell RN) Variability Baby A: Moderate 6-25 bpm (07/15/2016 20:00:Gladis Newell RN) Variability Baby A: Moderate 6-25 bpm (07/15/2016 19:45:Gladis Newell RN) Variability Baby A: Moderate 6-25 bpm (07/15/2016 19:30:Gladis Newell RN) Variability Baby A: Moderate 6-25 bpm (07/15/2016 19:15:Gladis Newell RN) Variability Baby A: Moderate 6-25 bpm (07/15/2016 19:15:Rica Patton RN) Variability Baby A: Moderate 6-25 bpm (07/15/2016 19:00:Rica Patton RN) Variability Baby A: Moderate 6-25 bpm (07/15/2016 18:45:Rica Patton RN) Variability Baby A: Moderate 6-25 bpm (07/15/2016 18:30:Rica Patton RN) Variability Baby A: Moderate 6-25 bpm (07/15/2016 18:15:Rica Patton RN) Variability Baby A: Moderate 6-25 bpm (07/15/2016 18:00:Rica Patton RN) Variability Baby A: Moderate 6-25 bpm (07/15/2016 17:45:Rica Patton RN) Variability Baby A: Moderate 6-25 bpm (07/15/2016 17:30:Rica Patton RN) Variability Baby A: Moderate 6-25 bpm (07/15/2016 17:15:Rica Patton RN) Variability Baby A: Moderate 6-25 bpm (07/15/2016 17:00:Rica Patton RN) Variability Baby A: Moderate 6-25 bpm (07/15/2016 16:45:Rica Patton RN) Variability Baby A: Moderate 6-25 bpm (07/15/2016 16:30:Rica Patton RN) Variability Baby A: Moderate 6-25 bpm (07/15/2016 16:15:Rica Patton RN) Variability Baby A: Moderate 6-25 bpm (07/15/2016 16:00:Rica Patton RN) Variability Baby A: Moderate 6-25 bpm (07/15/2016 15:45:Rica Patton RN) Variability Baby A: Moderate 6-25 bpm (07/15/2016 15:15:Rica Patton RN) Variability Baby A: Moderate 6-25 bpm (07/15/2016 14:45:BRII uAstin) Variability Baby A: Moderate 6-25 bpm (07/15/2016 13:30:BRII [place]) Variability Baby A: Moderate 6-25 bpm (07/15/2016 13:00:BRII [place]) Accelerations Baby A: 10X10 (07/15/2016 23:45:Gladis Newell RN) Accelerations Baby A: 10X10 (07/15/2016 23:30:Gladis Newell RN) Accelerations Baby A: 10X10 (07/15/2016 23:15:Gladis Newell RN) Accelerations Baby A: None (07/15/2016 23:00:Gladis Newell RN) Accelerations Baby A: None (07/15/2016 22:45:Gladis Newell RN) Accelerations Baby A: None (07/15/2016 22:30:Gladis Newell RN) Accelerations Baby A: 10X10 (07/15/2016 22:15:Gladis Newell RN) Accelerations Baby A: 15X15 (07/15/2016 22:00:Gladis Newell RN) Accelerations Baby A: 15X15 (07/15/2016 21:45:Gladis Newell RN) Accelerations Baby A: 15X15 (07/15/2016 21:30:Gladis Newell RN) Accelerations Baby A: 15X15 (07/15/2016 21:15:Gladis Newell RN) Accelerations Baby A: 15X15 (07/15/2016 21:00:Gladis Newell RN) Accelerations Baby A: 10X10 (07/15/2016 20:45:Gladis Newell RN) Accelerations Baby A: 15X15 (07/15/2016 20:30:Gladis Newell RN) Accelerations Baby A: 10X10 (07/15/2016 20:15:Gladis Newell RN) Accelerations Baby A: 15X15 (07/15/2016 20:00:Gladis Newell RN) Accelerations Baby A: 10X10 (07/15/2016 19:45:Gladis Newell RN) Accelerations Baby A: 15X15 (07/15/2016 19:30:Gladis Newell RN) Accelerations Baby A: 15X15 (07/15/2016 19:15:Gladis Newell RN) Accelerations Baby A: 15X15 (07/15/2016 19:15:Rica Patton RN) Accelerations Baby A: 15X15 (07/15/2016 19:00:Rica Patton RN) Accelerations Baby A: 15X15 (07/15/2016 18:45:Rica Patton RN) Accelerations Baby A: 15X15 (07/15/2016 18:30:Rica Patton RN) Accelerations Baby A: 15X15 (07/15/2016 18:15:Rica Patton RN) Accelerations Baby A: 15X15 (07/15/2016 18:00:Rica Patton RN) Accelerations Baby A: 15X15 (07/15/2016 17:45:Rica Patton RN) Accelerations Baby A: 15X15 (07/15/2016 17:30:Rica Patton RN) Accelerations Baby A: 15X15 (07/15/2016 17:15:Rica Patton RN) Accelerations Baby A: 15X15 (07/15/2016 17:00:Rica Patton RN) Accelerations Baby A: 15X15 (07/15/2016 16:45:Rica Patton RN) Accelerations Baby A: 15X15 (07/15/2016 16:30:Rica Patton RN) Accelerations Baby A: 15X15 (07/15/2016 16:15:Rica Patton RN) Accelerations Baby A: 15X15 (07/15/2016 16:00:iRca Patton RN) Accelerations Baby A: 15X15 (07/15/2016 15:45:Rica Patton RN) Accelerations Baby A: 15X15 (07/15/2016 15:15:Rica Patton RN) Accelerations Baby A: 15X15 (07/15/2016 14:45:BRII [place]) Accelerations Baby A: 15X15 (07/15/2016 13:30:BRII [place]) Accelerations Baby A: 15X15 (07/15/2016 13:00:BRII [place]) Decelerations Baby A: Late; Variable (07/15/2016 23:45:Gladis Newell RN) Decelerations Baby A: Variable (07/15/2016 23:30:Gladis Newell RN) Decelerations Baby A: Variable (07/15/2016 23:15:Gladis Newell RN) Decelerations Baby A: Variable (07/15/2016 23:00:Gladis Newell RN) Decelerations Baby A: Variable (07/15/2016 22:45:Gladis Newell RN) Decelerations Baby A: Variable (07/15/2016 22:30:Gladis Newell RN) Decelerations Baby A: Variable (07/15/2016 22:15:Gladis Newell RN) Decelerations Baby A: None; Variable (07/15/2016 22:00:Gladis Newell RN) Decelerations Baby A: Variable (07/15/2016 21:45:Gladis Newell RN) Decelerations Baby A: Variable (07/15/2016 21:30:Gladis Newell RN) Decelerations Baby A: Early (07/15/2016 21:15:Gladis Newell RN) Decelerations Baby A: Early (07/15/2016 21:00:Gladis Newell RN) Decelerations Baby A: None (07/15/2016 20:45:Gladis Newell RN) Decelerations Baby A: None (07/15/2016 20:30:Gladis Newell RN) Decelerations Baby A: Variable (07/15/2016 20:15:Gladis Newell RN) Decelerations Baby A: Variable (07/15/2016 20:00:Gladis Newell RN) Decelerations Baby A: Early (07/15/2016 19:45:Gladis Newell RN) Decelerations Baby A: Early (07/15/2016 19:30:Gladis Newell RN) Decelerations Baby A: Early (07/15/2016 19:15:Gladis Newell RN) Decelerations Baby A: None (07/15/2016 19:15:Rica Patton RN) Decelerations Baby A: None (07/15/2016 19:00:Rica Patton RN) Decelerations Baby A: None (07/15/2016 18:45:Rica Patton RN) Decelerations Baby A: None (07/15/2016 18:30:Rica Patton RN) Decelerations Baby A: None (07/15/2016 18:15:Rica Patton RN) Decelerations Baby A: None (07/15/2016 18:00:Rica Patton RN) Decelerations Baby A: None (07/15/2016 17:45:Rica Patton RN) Decelerations Baby A: None (07/15/2016 17:30:Rica Patton RN) Decelerations Baby A: None (07/15/2016 17:15:Rica Patton RN) Decelerations Baby A: None (07/15/2016 17:00:Rica Patton RN) Decelerations Baby A: None (07/15/2016 16:45:Rica Patton RN) Decelerations Baby A: None (07/15/2016 16:30:Rica Patton RN) Decelerations Baby A: None (07/15/2016 16:15:Rica Patton RN) Decelerations Baby A: None (07/15/2016 16:00:Rica Patton RN) Decelerations Baby A: None (07/15/2016 15:45:Rica Patton RN) Decelerations Baby A: None (07/15/2016 15:15:Rica Patton RN) Decelerations Baby A: Variable (07/15/2016 14:45:BRII [place]) Decelerations Baby A: None (07/15/2016 13:30:BRII [place]) Decelerations Baby A: None (07/15/2016 13:00:BRII [place]) ADDITIONAL COMMENTS Assessment Flag: Admission Assessment (07/15/2016 12:37:QS system process)
[2016-07-16] MEDS: PRENATAL VITAMIN W-O CA NO5/FE FUMARATE/FA CAPSULE PO SCH (11:16)
[2016-07-16] MEDS: FERROUS SULFATE 325 MG TABLET PO SCH ×2 (11:16→17:55)
[2016-07-16] MEDS: DOCUSATE SODIUM 100 MG CAPSULE PO SCH ×2 (11:16→17:55)
[2016-07-16] MEDS: SENNOSIDES/DOCUSATE 8.6-50 MG 1 EACH TABLET PO SCH (11:16)
[2016-07-16] MEDS: IBUPROFEN 800 MG TABLET PO SCH ×3 (11:17→22:08)
[2016-07-16 12:30] LABS: ABSOLUTE LYMPHOCYTES (AUTO) 2.5 10^3/uL (0.5-4.7); ABSOLUTE MONOCYTES (AUTO) 1.2 10^3/uL (0.1-1.4); ABSOLUTE NEUT (AUTO) 11.4 10^3/uL (1.7-8.2); BASOPHILS % (AUTO) 0.3 % (0-2); EOSINOPHILS % (AUTO) 0.1 % (0-6); HEMATOCRIT 30.2 % (36.0-47.0); HEMOGLOBIN 10.1 g/dL (12.0-15.5); HGB HCT DIFFERENCE 0.1; LYMPHOCYTES % (AUTO) 16.6 % (13-45); MEAN CORPUSCULAR HEMOGLOBIN 26.7 pg (27.0-33.4); MEAN CORPUSCULAR HGB CONC 33.4 g/dL (32.0-36.0); MEAN CORPUSCULAR VOLUME 80 fl (80-97); MONOCYTES % (AUTO) 8.2 % (3-13); RED BLOOD COUNT 3.78 10^6/uL (3.72-5.28); SEGMENTED NEUTROPHILS % (AUTO) 74.8 % (42-78); WHITE BLOOD COUNT 15.2 10^3/uL (4.0-10.5)
--- NOTE | 2016-07-16 14:31 | PDOC PROGRESS REPORT ---
Subjective-OB Subjective: Post Delivery Day: 1 26 year old. Denies any needs at this time, states lochia is stable, pain well controlled, voiding without difficulty. Physical Exam (OB) Vital Signs: Temp Pulse Resp BP Pulse Ox 97.4 F 83 18 127/78 H 100 07/16/16 10:00 07/16/16 10:00 07/16/16 10:00 07/16/16 10:00 07/16/16 10:00 Intake & Output 07/15/16 07/16/16 07/17/16 06:59 06:59 06:59 Weight 92.85 kg - Lochia Lochia Amount: Scant < 10 ml Lochia Color: Rubra/Red - Abdomen Description: Tender, Soft Hernia Present: No Fundal Description: Firm, Midline Fundal Height: u/u - u/2 Objective-Diagnostic Laboratory: 07/16/16 12:17 07/15/16 07/15/16 07/16/16 15:51 15:51 12:17 WBC 16.8 H 15.2 H RBC 3.83 3.78 Hgb 10.1 L 10.1 L Hct 30.5 L 30.2 L MCV 80 80 MCH 26.3 L 26.7 L MCHC 33.0 33.4 RDW 16.2 H 16.0 H Plt Count 152 173 Seg Neutrophils % 86.0 H 74.8 Lymphocytes % 7.2 L 16.6 Monocytes % 6.6 8.2 Eosinophils % 0.0 0.1 Basophils % 0.2 0.3 Absolute Neutrophils 14.4 H 11.4 H Absolute Lymphocytes 1.2 2.5 Absolute Monocytes 1.1 1.2 Absolute Eosinophils 0.0 0.0 Absolute Basophils 0.0 0.0 Blood Type O POSITIVE Antibody Screen NEGATIVE Assessment and Plan(PN) - Assessment and Plan (1) Vaginal delivery Is this a current diagnosis for this admission?: YesPlan: routine pp care - Time Spent with Patient Time with patient: Less than 15 minutes Critical Time spent with patient: Less than 15 minutes Medications reviewed and adjusted accordingly: Yes - Disposition Anticipated Discharge: Home Within: within 24 hours
--- NOTE | 2016-07-16 16:46 | L&D Current Admission ---
Current Admit Datetime Report Generated by CPN: 07/16/2016 16:45 ADMISSION INFORMATION Current Admit Date/Time: 07/15/2016 14:48 (07/15/2016 12:37:BRII [place]) Reason for Admission: Induction of Labor (07/15/2016 12:37:BRII [place]) Chief Complaint: Contractions; Other (Annotations: pain and pressure x 3 weeks worsen today beginning aroun 10 ) (07/15/2016 12:37:BRII [place]) Medications During : Vitamin (07/15/2016 12:37:BRII [place]) Meds During -Oth: ambien and buspar (07/15/2016 12:37:BRII [place]) EGA per Dates: 40.3 (07/15/2016 12:37:QS system process) Method of Arrival: Wheelchair (07/15/2016 12:37:BRII [place]) Records Available: Yes (07/15/2016 12:37:BRII [place]) General Admission Information: Reviewed; Updated; Confirmed (07/15/2016 12:37:BRII [place]) General Admission Reviewed By: Triny TERESA (07/15/2016 12:37:BRII [place]) BELONGINGS/ADVANCED DIRECTIVES Other Belongings: See [facility] Valuables consent (07/15/2016 12:37:BRII [place]) Disposition of Belongings: Kept with Patient (07/15/2016 12:37:BRII [place]) Durable Power of Funeral Pre Arrangement Specialist: No (07/15/2016 12:37:BRII [place]) Living Will: No (07/15/2016 12:37:BRII [place]) Organ Donor: Yes (07/15/2016 12:37:BRII [place]) Pt Rights Information Given: Yes (07/15/2016 12:37:BRII [place]) Pt Understands Pt Rights: Yes (07/15/2016 12:37:BRII [place]) LEARNING ASSESSMENT Knowledge Level: Understands L_D Process; Understands Care Activities; Had Pre-Hospital Education (07/15/2016 12:37:BRII [place]) Barriers to Learning: None (07/15/2016 12:37:BRII [place]) Learning Readiness: Motivated (07/15/2016 12:37:BRII [place]) Learns Best By: 1 to 1 Instruction; Demonstration (07/15/2016 12:37:BRII [place]) Learning Needs: Labor and Delivery Process; Pain Management; Symptoms to Report; Treatment Plan; Medication; Diagnosis; Nutrition; Equipment; Infant Care; Community Resources; Other (07/15/2016 12:37:BRII [place]) Learning Assessment Comments: (07/15/2016 12:37:BRII [place]) DOMESTIC VIOLANCE SCREENING Dom Viol Threatened/Hurt: No (07/15/2016 12:37:BRII [place]) Hx of Abuse/Neglect past 2yrs: No (07/15/2016 12:37:BRII [place]) Feel Unsafe Going Home: No (07/15/2016 12:37:BRII [place]) Addt'l Observ Indicating Abuse: No (07/15/2016 12:37:BRII [place]) Reason Unable to Complete Screen: N/A, Screen Completed (07/15/2016 12:37:BRII [place]) Considered Personal Harm/Suicide: No (07/15/2016 12:37:BRII [place]) NUTRITIONAL/FUNCTIONAL SCREENING Problem with Appetite >5 Days: No (07/15/2016 12:37:BRII [place]) Chew/Swallow Difficulties: No (07/15/2016 12:37:BRII [place]) Inappropriate Wt Gain/Loss: No (07/15/2016 12:37:BRII [place]) Presence Skin Breakdown/Ulcer: No (07/15/2016 12:37:BRII [place]) Special Diet: No (07/15/2016 12:37:BRII [place]) Pt Requests Regrind Mill Operator Visit: No (07/15/2016 12:37:BRII [place]) Hx of Any of the Following?: N/A (07/15/2016 12:37:BRII [place]) New Diagnosis of: N/A (07/15/2016 12:37:BRII [place]) Requires Assist w/Ambulation: No (07/15/2016 12:37:BRII [place]) Uses Assist Device to Ambulate: No (07/15/2016 12:37:BRII [place]) Pt Requires Help w/ADL's: No (07/15/2016 12:37:BRII [place])
--- NOTE | 2016-07-16 16:46 | L&D Flow Sheet ---
LD Flowsheet Datetime Report Generated by CPN: 07/16/2016 16:45 Datetime: 07/16/2016 09:57 Stage of : Recovery (Claudia Josselyn, RN) Datetime: 07/16/2016 08:10 Stage of : Recovery (Claudia Josselyn, RN) Temperature (F): 97.7 (Claudia Josselyn, RN) Temperature (C): 36.5 (QS system process) Temperature Route: Oral (Claudia Josselyn, RN) Pain Scale: 0 (Claudia Broman, RN) Pain Presence: None/Denies (Claudia Broman, RN) Pain Type: N/A (Claudia Broman, RN) Pain Relief Measures: Comfort Measures (Claudia Broman, RN) Datetime: 07/16/2016 05:54 NBP Sys/Trina/Mean (mmHg): 124 (QS system process) : 64 (QS system process) : 88 (QS system process) Pulse: 68 (QS system process) Datetime: 07/16/2016 01:55 Temperature (C): 36.7 (QS system process) Datetime: 07/16/2016 01:10 Temperature (C): 37.4 (QS system process) Datetime: 07/15/2016 23:43 LaborFlag: Labor (QS system process) Datetime: 07/15/2016 23:15 LaborFlag: Labor (QS system process) Datetime: 07/15/2016 23:12 LaborFlag: Labor (QS system process) Datetime: 07/15/2016 22:56 LaborFlag: Labor (QS system process) Datetime: 07/15/2016 22:41 LaborFlag: Labor (QS system process) Datetime: 07/15/2016 22:29 Temperature (C): 36.9 (QS system process) LaborFlag: Labor (QS system process) Datetime: 07/15/2016 22:27 LaborFlag: Labor (QS system process) Datetime: 07/15/2016 22:15 LaborFlag: Labor (QS system process) Datetime: 07/15/2016 22:12 LaborFlag: Labor (QS system process) Datetime: 07/15/2016 22:00 Temperature (C): 36.9 (QS system process) LaborFlag: Labor (QS system process) Datetime: 07/15/2016 21:56 LaborFlag: Labor (QS system process) Datetime: 07/15/2016 21:45 LaborFlag: Labor (QS system process) Datetime: 07/15/2016 21:42 LaborFlag: Antepartum (QS system process) Datetime: 07/15/2016 21:26 LaborFlag: Labor (QS system process) Datetime: 07/15/2016 21:12 LaborFlag: Antepartum (QS system process) Datetime: 07/15/2016 20:56 LaborFlag: Antepartum (QS system process) Datetime: 07/15/2016 20:46 LaborFlag: Antepartum (QS system process) Datetime: 07/15/2016 20:43 LaborFlag: Antepartum (QS system process) Datetime: 07/15/2016 20:41 LaborFlag: Antepartum (QS system process) Datetime: 07/15/2016 20:36 LaborFlag: Antepartum (QS system process) Datetime: 07/15/2016 20:31 LaborFlag: Antepartum (QS system process) Datetime: 07/15/2016 20:30 Temperature (C): 36.9 (QS system process) LaborFlag: Antepartum (QS system process) Datetime: 07/15/2016 20:26 LaborFlag: Antepartum (QS system process) Datetime: 07/15/2016 20:21 LaborFlag: Antepartum (QS system process) Datetime: 07/15/2016 20:16 LaborFlag: Antepartum (QS system process) Datetime: 07/15/2016 20:11 LaborFlag: Antepartum (QS system process) Datetime: 07/15/2016 20:10 LaborFlag: Antepartum (QS system process) Datetime: 07/15/2016 20:09 LaborFlag: Antepartum (QS system process) Datetime: 07/15/2016 20:08 LaborFlag: Antepartum (QS system process) Datetime: 07/15/2016 20:06 LaborFlag: Antepartum (QS system process) Datetime: 07/15/2016 20:01 LaborFlag: Antepartum (QS system process) Datetime: 07/15/2016 19:56 LaborFlag: Antepartum (QS system process) Datetime: 07/15/2016 19:51 LaborFlag: Antepartum (QS system process) Datetime: 07/15/2016 19:46 LaborFlag: Antepartum (QS system process) Datetime: 07/15/2016 19:45 LaborFlag: Antepartum (QS system process) Datetime: 07/15/2016 19:41 LaborFlag: Antepartum (QS system process) Datetime: 07/15/2016 19:38 LaborFlag: Antepartum (QS system process) Datetime: 07/15/2016 19:37 LaborFlag: Antepartum (QS system process) Datetime: 07/15/2016 19:36 LaborFlag: Antepartum (QS system process) Datetime: 07/15/2016 19:35 LaborFlag: Antepartum (QS system process) Datetime: 07/15/2016 19:32 LaborFlag: Antepartum (QS system process) Datetime: 07/15/2016 19:31 LaborFlag: Antepartum (QS system process) Datetime: 07/15/2016 19:28 LaborFlag: Antepartum (QS system process) Datetime: 07/15/2016 19:27 LaborFlag: Antepartum (QS system process) Datetime: 07/15/2016 19:26 LaborFlag: Antepartum (QS system process) Datetime: 07/15/2016 19:25 LaborFlag: Antepartum (QS system process) Datetime: 07/15/2016 19:24 LaborFlag: Antepartum (QS system process) Datetime: 07/15/2016 19:23 LaborFlag: Antepartum (QS system process) Datetime: 07/15/2016 19:21 LaborFlag: Antepartum (QS system process) Datetime: 07/15/2016 19:20 LaborFlag: Antepartum (QS system process) Datetime: 07/15/2016 19:19 LaborFlag: Antepartum (QS system process) Datetime: 07/15/2016 19:16 LaborFlag: Antepartum (QS system process) Datetime: 07/15/2016 19:14 LaborFlag: Antepartum (QS system process) Datetime: 07/15/2016 19:13 LaborFlag: Antepartum (QS system process) Datetime: 07/15/2016 19:11 LaborFlag: Antepartum (QS system process) Datetime: 07/15/2016 19:08 LaborFlag: Antepartum (QS system process) Datetime: 07/15/2016 19:06 LaborFlag: Antepartum (QS system process) Datetime: 07/15/2016 19:01 LaborFlag: Antepartum (QS system process) Datetime: 07/15/2016 18:56 LaborFlag: Antepartum (QS system process) Datetime: 07/15/2016 18:55 LaborFlag: Antepartum (QS system process) Datetime: 07/15/2016 18:54 LaborFlag: Antepartum (QS system process) Datetime: 07/15/2016 18:38 LaborFlag: Antepartum (QS system process) Datetime: 07/15/2016 18:08 LaborFlag: Antepartum (QS system process) Datetime: 07/15/2016 17:54 LaborFlag: Antepartum (QS system process) Datetime: 07/15/2016 17:39 LaborFlag: Antepartum (QS system process) Datetime: 07/15/2016 17:24 LaborFlag: Antepartum (QS system process) Datetime: 07/15/2016 17:09 LaborFlag: Antepartum (QS system process) Datetime: 07/15/2016 16:54 LaborFlag: Antepartum (QS system process) Datetime: 07/15/2016 16:38 LaborFlag: Antepartum (QS system process) Datetime: 07/15/2016 16:23 LaborFlag: Antepartum (QS system process) Datetime: 07/15/2016 16:08 LaborFlag: Antepartum (QS system process) Datetime: 07/15/2016 15:53 LaborFlag: Antepartum (QS system process) Datetime: 07/15/2016 15:02 LaborFlag: Antepartum (QS system process) Datetime: 07/15/2016 13:03 LaborFlag: Antepartum (QS system process) Datetime: 07/15/2016 12:37 Total Soto's Score: 9 (QS system process) : 9-14 = Usually no failure for induction (QS system process) LaborFlag: Antepartum (QS system process) Datetime: 07/15/2016 12:34 LaborFlag: Antepartum (QS system process) Datetime: 07/15/2016 12:03 LaborFlag: Antepartum (QS system process) Datetime: 07/15/2016 12:02 Temperature (C): 37.4 (QS system process) LaborFlag: Antepartum (QS system process)
--- NOTE | 2016-07-16 16:46 | L&D Discharge Summary ---
OB Discharge Summary Datetime Report Generated by CPN: 07/16/2016 16:45 DISCHARGE DIAGNOSIS Gestation: 40.3 Number of Babies in Womb: 1 Parity: 1
--- NOTE | 2016-07-16 16:46 | L&D General Admission ---
General Admit Datetime Report Generated by CPN: 07/16/2016 16:45 INFORMATION Patient Age: 26 (05/11/2016 13:46:QS system process) EDC: 07/12/2016 00:00 (07/15/2016 12:02:BRII [place]) : 2 (07/15/2016 12:02:BRII [place]) Para: 1 (07/15/2016 12:02:BRII [place]) Term: 1 (07/15/2016 12:02:BRII [place]) Livin (07/15/2016 12:02:BRII [place]) Cesareans: 0 (07/15/2016 12:02:BRII [place]) VBACs: 0 (07/15/2016 12:02:BRII [place]) Ectopic: 0 (07/15/2016 12:02:BRII [place]) Multiple Births: 0 (07/15/2016 12:02:BRII [place]) Baby, Number in Womb: 1 (07/15/2016 12:02:Triny Torres, [facility]) CARE Primary Oim [facility] (07/15/2016 12:02:Triny Torres, [facility]) Month of 1st Visit: december (07/15/2016 12:02:Triny Torres, [facility]) Adequate Care: Yes (07/15/2016 12:02:Triny Torres, [facility]) Prepregnancy Weight (lb): 208 (07/15/2016 12:02:Triny Torres, RN) Prepregnancy Weight (kg): 94.5 (07/15/2016 12:02:QS system process) Height (in): 60 (07/15/2016 13:12:QS system process) ALLERGIES Medication Allergy: No (07/15/2016 12:02:Triny Torres [facility]) Medication Allergies: No Known Allergies (07/15/2016) (07/15/2016 13:12:QS system process) Medication Allergies: No Known Allergies (01/15/2016) (05/11/2016 13:46:QS system process) Latex Allergy: No Latex Allergies (07/15/2016 12:02:Triny Camp, RNC) Food Allergies: none (07/15/2016 12:02:Gladis Newell RN) Environmental Allergies: none (07/15/2016 12:02:Gladis Newell RN) COMMUNICATION Primary Language: Italian (07/15/2016 12:02:Triny Torres, RNC) Medical Tx Preferred Language: Italian (07/15/2016 12:02:Triny Torres, RNC) Communication Barrier(s): None (07/15/2016 12:02:Triny Camp, RNC) DEMOGRAPHICS Address: [address] [place] [id number] (05/11/2016 13:46:QS system process) Zipcode: [address] (05/11/2016 13:46:QS system process) Home (05/11/2016 13:46:QS system process) Work (05/11/2016 13:46:QS system process) N: [phone] (05/11/2016 13:46:QS system process) Next of Kin Name: BISMARK RINCON (05/11/2016 13:46:QS system process) Next of Kin (05/11/2016 13:46:QS system process) Next of Kin Relationship: SPO (05/11/2016 13:46:QS system process) Date of : 1990 (05/11/2016 13:46:QS system process) Marital Status: Single (05/11/2016 13:46:QS system process) Sex: Female (05/11/2016 13:46:QS system process) Occupation: Other (07/15/2016 12:02:BRII [place]) Race: (05/11/2016 13:46:QS system process) Ethnicity: Non- or (05/11/2016 13:46:QS system process) Taoist: None (05/11/2016 13:46:QS system process) Education: 12 (07/15/2016 12:02:BRII [place]) FOB Involved: N/A (07/15/2016 12:02:BRII [place]) Father of Baby Name: Bismark (07/15/2016 12:02:BRII [place]) DRUG AND ALCOHOL USE Alcohol: No (07/15/2016 12:02:BRII [place]) Cigarettes: Never Smoker. [id number] (07/15/2016 12:02:BRII [place]) Marijuana: No (07/15/2016 12:02:BRII [place]) Cocaine: No (07/15/2016 12:02:BRII [place]) Other Illicit Drugs: No (07/15/2016 12:02:Triny Camp, [facility]) VACCINE HISTORY Influenza Vaccine: Yes (07/15/2016 12:02:Triny Camp, [facility]) Pneumococcal Vaccine: No (07/15/2016 12:02:Triny Camp, [facility]) Tetanus Vaccine: Yes (07/15/2016 12:02:Triny Camp, [facility]) Tdap Vaccine: Yes (07/15/2016 12:02:Triny [place], [facility]) Hepatitis B Vaccine: Uncertain (07/15/2016 12:02:Triny Camp, [facility]) Photovoltaic Installation Technician: [facility] (07/15/2016 12:02:Triny Torres [facility]) Feeding Preference: Breast (07/15/2016 12:02:Triny Torres [facility]) Benefit of Breast Feed Discussed: Yes (07/15/2016 12:02:Triny Torres, [facility]) Circumcision: N/A (07/15/2016 12:02:Triny Torres [facility]) Classes Attended: No (07/15/2016 12:02:BRII [place]) Tubal Ligation: No (07/15/2016 12:02:BRII [place]) Tubal Authorization Signed: N/A (07/15/2016 12:02:BRII [place]) Consent: N/A (07/15/2016 12:02:BRII [place]) Consent Signed: N/A (07/15/2016 12:02:BRII [place]) Pain Management Plans: Epidural (07/15/2016 12:02:BRII [place]) Plans for Labor and Delivery: None (07/15/2016 12:02:BRII [place]) Support Person: Bismark Rincon (07/15/2016 12:02:BRII [place]) Support Person Relationship: (07/15/2016 12:02:BRII [place]) Cultural/Spritual Practice: No (07/15/2016 12:02:BRII [place]) Spir/Cult Dietary Needs: No (07/15/2016 12:02:BRII [place]) LIVING SITUATION/DISCHARGE PLAN Living Arrangements: House (07/15/2016 12:02:BRII [place]) Adequate Access to:: Electric; Heat; Refrigeration; Plumbing/Running water; Phone; Transportation (07/15/2016 12:02:BRII [place]) WIC Program: Yes (07/15/2016 12:02:BRII [place]) Discharge Replenisher Person: Bess Stanton (07/15/2016 12:02:BRII [place]) Person to Help after Discharge: Bess Stanton (07/15/2016 12:02:BRII [place]) Currently Using Commun Resources: Yes (07/15/2016 12:02:BRII [place]) Specify Current Resource Used: Medicaid, WIC (07/15/2016 12:02:BRII [place]) Outside Agency/Seo Assistant: No (07/15/2016 12:02:BRII [place]) Car Seat for Discharge: Yes (07/15/2016 12:02:BRII [place]) Adoption Requested: No (07/15/2016 12:02:BRII [place]) Pt Contact w/ Post : N/A (07/15/2016 12:02:BRII [place]) LABS Blood Type: O Positive (07/15/2016 12:02:Rica Patton RN) Hemoglobin: 10.1 L (07/16/2016 12:17:QS system process) Hemoglobin: 10.1 L (07/15/2016 15:51:QS system process) Hematocrit: 30.2 L (07/16/2016 12:17:QS system process) Hematocrit: 30.5 L (07/15/2016 15:51:QS system process) MCV: 80 (07/16/2016 12:17:QS system process) MCV: 80 (07/15/2016 15:51:QS system process) Group Beta Strep: positive (07/15/2016 12:02:Rica Patton RN) Gonorrhea: Negative (07/15/2016 12:02:Rica Patton RN) Chlamydia: Negative (Annotations: Data stored by CPN on behalf of user) (07/15/2016 12:02:Rica Patton RN) RPR/VDRL: Nonreactive (07/15/2016 12:02:Rica Patton RN) Hepatitis B: Negative (07/15/2016 12:02:Rica Patton RN) Rubella: Immune (07/15/2016 12:02:Rica Patton RN) OB/PREVIOUS HISTORY Previous Procedures: Ultrasound; NST (07/15/2016 12:02:BRII [place]) Current Procedures: Ultrasound; NST (07/15/2016 12:02:BRII [place]) History of Previous : No (07/15/2016 12:02:BRII [place]) History of Gestational Diabetes: No (07/15/2016 12:02:BRII [place]) History of PIH: No (07/15/2016 12:02:BRII [place]) History of Incompetent Cervix: No (07/15/2016 12:02:BRII [place]) History of Placenta Previa/Abrup: No (07/15/2016 12:02:BRII [place]) History of Macrosomia: No (07/15/2016 12:02:BRII [place]) History of IUGR: No (07/15/2016 12:02:BRII [place]) History of Hemorrhage: No (07/15/2016 12:02:BRII Austni) History of Loss/Stillborn: No (07/15/2016 12:02:BRII [place]) History of : No (07/15/2016 12:02:BRII [place]) History of D (Rh) Sensitization: No (07/15/2016 12:02:BRII [place]) History Recurrent Loss/Stillborn: No (07/15/2016 12:02:BRII [place]) History Depression/PP Depression: Yes (07/15/2016 12:02:BRII [place]) History of Uterine Anomaly/JUAN PABLO: No (07/15/2016 12:02:BRII [place]) History of Infertility: No (07/15/2016 12:02:BRII [place]) History of ART Treatment: No (07/15/2016 12:02:BRII [place]) History of JUAN PABLO: No (07/15/2016 12:02:BRII [place]) Comments Obstetrical History: G1- 2008 male pp depression G2- no complaints (07/15/2016 12:02:BRII [place]) MEDICAL HISTORY Med Hx Diabetes: No (07/15/2016 12:02:BRII [place]) Med Hx Hypertension: No (07/15/2016 12:02:BRII [place]) Med Hx Heart Disease: No (07/15/2016 12:02:BRII [place]) Med Hx Autoimmune Disorder: No (07/15/2016 12:02:BRII [place]) Med Hx Kidney Disease/UTI: No (07/15/2016 12:02:BRII [place]) Med Hx Neurologic/Epilepsy: No (07/15/2016 12:02:BRII [place]) Med Hx Psychiatric Disorders: Yes (07/15/2016 12:02:BRII [place]) Med Hx Hepatitis/Liver Disease: No (07/15/2016 12:02:BRII [place]) Med Hx Varicosities/Phlebitis: No (07/15/2016 12:02:BRII [place]) Med Hx Thyroid Dysfunction: No (07/15/2016 12:02:BRII [place]) Med Hx Trauma/Violence: No (07/15/2016 12:02:BRII [place]) Med Hx Blood Transfusion: No (07/15/2016 12:02:BRII [place]) Med Hx Pulmonary (Asthma,TB): No (07/15/2016 12:02:BRII [place]) Med Hx Breast: No (07/15/2016 12:02:BRII [place]) Med Hx REGRINDER OPERATOR Surgery: No (07/15/2016 12:02:BRII [place]) Med Hx Hospitalization/Surgery: Yes (07/15/2016 12:02:BRII [place]) Med Hx Anesthetic Complications: No (07/15/2016 12:02:BRII [place]) Med Hx Abnormal Pap Smear: No (07/15/2016 12:02:BRII [place]) Other Medical Diseases: No (07/15/2016 12:02:BRII [place]) Med Hx Significant Family Hx: No (07/15/2016 12:02:BRII [place]) Details of Med/Surg Hx: Bowel blockage with appendectomy 1997 (07/15/2016 12:02:BRII [place]) INFECTIOUS HISTORY Inf Hx Gonorrhea: No (07/15/2016 12:02:BRII [place]) Inf Hx Chlamydia: No (07/15/2016 12:02:BRII [place]) Inf Hx Syphilis: No (07/15/2016 12:02:Triny Torres [facility]) Inf Hx HIV/AIDS: No (07/15/2016 12:02:Triny Torres [facility]) Inf Hx Human Papilloma Virus: No (07/15/2016 12:02:Triny Torres [facility]) Inf Hx Pt/Partner Genital Herpes: No (07/15/2016 12:02:Triny Torres [facility]) Inf Hx Tuberculosis/Exposure: No (07/15/2016 12:02:Triny Torres [facility]) Inf Hx Hepatitis B,C: No (07/15/2016 12:02:Triny Torres [facility]) Inf Hx Rash or Viral Illness: No (07/15/2016 12:02:Triny Torres [facility]) GENETIC HISTORY Gen Hx Age >=35 at ANTONIA: No (07/15/2016 12:02:Triny Torres [facility]) Gen Hx Thalassemia: No (07/15/2016 12:02:Triny Torres [facility]) Gen Hx Congenital Heart Defect: No (07/15/2016 12:02:Triny Torres [facility]) Gen Hx Neural Tube Defect: No (07/15/2016 12:02:Triny Torres [facility]) Gen Hx Down's Syndrome: No (07/15/2016 12:02:Triny Torres [facility]) Gen Hx Xavier-Sachs: No (07/15/2016 12:02:Triny Torres [facility]) Gen Hx Shailesh: No (07/15/2016 12:02:Triny Torres [facility]) Gen Hx Familial Dysautonomia: No (07/15/2016 12:02:BRII [place]) Gen Hx Sickle Cell Disease/Trait: No (07/15/2016 12:02:BRII [place]) Gen Hx Hemophilia/Blood Disorder: No (07/15/2016 12:02:BRII [place]) Gen Hx Muscular Dystrophy: No (07/15/2016 12:02:BRII [place]) Gen Hx Cystic Fibrosis: No (07/15/2016 12:02:BRII [place]) Gen Hx Huntingtons Chorea: No (07/15/2016 12:02:BRII [place]) Gen Hx Mental Retardation/Autism: No (07/15/2016 12:02:BRII [place]) Gen Hx Tested for Fragile X: No (07/15/2016 12:02:BRII [place]) Gen Hx Other Inher/Chromosomal: No (07/15/2016 12:02:BRII [place]) Gen Hx Maternal Metabolic DO: No (07/15/2016 12:02:BRII [place]) Gen Hx Pt Father or FOB Defect: No (07/15/2016 12:02:BRII [place]) Gen Hx Other Genetic History: No (07/15/2016 12:02:BRII [place]) Gen Hx Drugs/Meds since LMP: Yes (07/15/2016 12:02:Gladis Newell RN)
--- NOTE | 2016-07-16 22:46 | L&D Current Admission ---
Current Admit Datetime Report Generated by CPN: 07/16/2016 22:45 ADMISSION INFORMATION Current Admit Date/Time: 07/15/2016 14:48 (07/15/2016 12:37:BRII [place]) Reason for Admission: Induction of Labor (07/15/2016 12:37:BRII [place]) Chief Complaint: Contractions; Other (Annotations: pain and pressure x 3 weeks worsen today beginning aroun 10 ) (07/15/2016 12:37:BRII [place]) Medications During : Vitamin (07/15/2016 12:37:BRII [place]) Meds During -Oth: ambien and buspar (07/15/2016 12:37:BRII [place]) EGA per Dates: 40.3 (07/15/2016 12:37:QS system process) Method of Arrival: Wheelchair (07/15/2016 12:37:BRII [place]) Records Available: Yes (07/15/2016 12:37:BRII [place]) General Admission Information: Reviewed; Updated; Confirmed (07/15/2016 12:37:BRII [place]) General Admission Reviewed By: Triny TERESA (07/15/2016 12:37:BRII [place]) BELONGINGS/ADVANCED DIRECTIVES Other Belongings: See [facility] Valuables consent (07/15/2016 12:37:BRII [place]) Disposition of Belongings: Kept with Patient (07/15/2016 12:37:BRII [place]) Durable Power of Heat Treat Technician: No (07/15/2016 12:37:BRII [place]) Living Will: No (07/15/2016 12:37:BRII [place]) Organ Donor: Yes (07/15/2016 12:37:BRII [place]) Pt Rights Information Given: Yes (07/15/2016 12:37:BRII [place]) Pt Understands Pt Rights: Yes (07/15/2016 12:37:BRII [place]) LEARNING ASSESSMENT Knowledge Level: Understands L_D Process; Understands Care Activities; Had Pre-Hospital Education (07/15/2016 12:37:BRII [place]) Barriers to Learning: None (07/15/2016 12:37:BRII [place]) Learning Readiness: Motivated (07/15/2016 12:37:BRII [place]) Learns Best By: 1 to 1 Instruction; Demonstration (07/15/2016 12:37:BRII [place]) Learning Needs: Labor and Delivery Process; Pain Management; Symptoms to Report; Treatment Plan; Medication; Diagnosis; Nutrition; Equipment; Infant Care; Community Resources; Other (07/15/2016 12:37:BRII [place]) Learning Assessment Comments: (07/15/2016 12:37:BRII [place]) DOMESTIC VIOLANCE SCREENING Dom Viol Threatened/Hurt: No (07/15/2016 12:37:BRII [place]) Hx of Abuse/Neglect past 2yrs: No (07/15/2016 12:37:BRII [place]) Feel Unsafe Going Home: No (07/15/2016 12:37:BRII [place]) Addt'l Observ Indicating Abuse: No (07/15/2016 12:37:BRII [place]) Reason Unable to Complete Screen: N/A, Screen Completed (07/15/2016 12:37:BRII [place]) Considered Personal Harm/Suicide: No (07/15/2016 12:37:BRII [place]) NUTRITIONAL/FUNCTIONAL SCREENING Problem with Appetite >5 Days: No (07/15/2016 12:37:BRII [place]) Chew/Swallow Difficulties: No (07/15/2016 12:37:BRII [place]) Inappropriate Wt Gain/Loss: No (07/15/2016 12:37:BRII [place]) Presence Skin Breakdown/Ulcer: No (07/15/2016 12:37:BRII [place]) Special Diet: No (07/15/2016 12:37:BRII [place]) Pt Requests Home Paraprofessional Visit: No (07/15/2016 12:37:BRII [place]) Hx of Any of the Following?: N/A (07/15/2016 12:37:BRII [place]) New Diagnosis of: N/A (07/15/2016 12:37:BRII [place]) Requires Assist w/Ambulation: No (07/15/2016 12:37:BRII [place]) Uses Assist Device to Ambulate: No (07/15/2016 12:37:BRII [place]) Pt Requires Help w/ADL's: No (07/15/2016 12:37:BRII [place])
--- NOTE | 2016-07-16 22:46 | L&D General Admission ---
General Admit Datetime Report Generated by CPN: 07/16/2016 22:45 INFORMATION Patient Age: 26 (05/11/2016 13:46:QS system process) EDC: 07/12/2016 00:00 (07/15/2016 12:02:BRII [place]) : 2 (07/15/2016 12:02:BRII [place]) Para: 1 (07/15/2016 12:02:BRII [place]) Term: 1 (07/15/2016 12:02:BRII [place]) Livin (07/15/2016 12:02:BRII [place]) Cesareans: 0 (07/15/2016 12:02:BRII [place]) VBACs: 0 (07/15/2016 12:02:BRII [place]) Ectopic: 0 (07/15/2016 12:02:BRII [place]) Multiple Births: 0 (07/15/2016 12:02:BRII [place]) Baby, Number in Womb: 1 (07/15/2016 12:02:Triny Torres, [facility]) CARE Primary Mobile Therapist: [employer] (07/15/2016 12:02:Triny Torres, [facility]) Month of 1st Visit: december (07/15/2016 12:02:Triny Torres, [facility]) Adequate Care: Yes (07/15/2016 12:02:Triny Torres, [facility]) Prepregnancy Weight (lb): 208 (07/15/2016 12:02:Triny Torres, RN) Prepregnancy Weight (kg): 94.5 (07/15/2016 12:02:QS system process) Height (in): 60 (07/15/2016 13:12:QS system process) ALLERGIES Medication Allergy: No (07/15/2016 12:02:Triny Torres [facility]) Medication Allergies: No Known Allergies (07/15/2016) (07/15/2016 13:12:QS system process) Medication Allergies: No Known Allergies (01/15/2016) (05/11/2016 13:46:QS system process) Latex Allergy: No Latex Allergies (07/15/2016 12:02:Triny Camp, RNC) Food Allergies: none (07/15/2016 12:02:Gladis Newell RN) Environmental Allergies: none (07/15/2016 12:02:Gladis Newell RN) COMMUNICATION Primary Language: Mongolian (07/15/2016 12:02:Triny Torres, RNC) Medical Tx Preferred Language: Mongolian (07/15/2016 12:02:Triny Torres, RNC) Communication Barrier(s): None (07/15/2016 12:02:Triny Camp, RNC) DEMOGRAPHICS Address: [address] [place] [id number] (05/11/2016 13:46:QS system process) Zipcode: [address] (05/11/2016 13:46:QS system process) Home (05/11/2016 13:46:QS system process) Work (05/11/2016 13:46:QS system process) N: [id number] (05/11/2016 13:46:QS system process) Next of Kin Name: BISMARK RINCON (05/11/2016 13:46:QS system process) Next of Kin (05/11/2016 13:46:QS system process) Next of Kin Relationship: SPO (05/11/2016 13:46:QS system process) Date of : 1990 (05/11/2016 13:46:QS system process) Marital Status: Single (05/11/2016 13:46:QS system process) Sex: Female (05/11/2016 13:46:QS system process) Occupation: Other (07/15/2016 12:02:BRII [place]) Race: (05/11/2016 13:46:QS system process) Ethnicity: Non- or (05/11/2016 13:46:QS system process) Lutheran: None (05/11/2016 13:46:QS system process) Education: 12 (07/15/2016 12:02:BRII [place]) FOB Involved: N/A (07/15/2016 12:02:BRII [place]) Father of Baby Name: Bismark (07/15/2016 12:02:BRII [place]) DRUG AND ALCOHOL USE Alcohol: No (07/15/2016 12:02:BRII [place]) Cigarettes: Never Smoker. [id number] (07/15/2016 12:02:BRII [place]) Marijuana: No (07/15/2016 12:02:BRII [place]) Cocaine: No (07/15/2016 12:02:BRII [place]) Other Illicit Drugs: No (07/15/2016 12:02:Triny Camp, [facility]) VACCINE HISTORY Influenza Vaccine: Yes (07/15/2016 12:02:Triny Camp, [facility]) Pneumococcal Vaccine: No (07/15/2016 12:02:Triny Camp, [facility]) Tetanus Vaccine: Yes (07/15/2016 12:02:Triny Camp, [facility]) Tdap Vaccine: Yes (07/15/2016 12:02:Triny Mackinaw, [facility]) Hepatitis B Vaccine: Uncertain (07/15/2016 12:02:Triny Camp, [facility]) Stake Driver: [facility] (07/15/2016 12:02:Triny Torres [facility]) Feeding Preference: Breast (07/15/2016 12:02:Triny Torres [facility]) Benefit of Breast Feed Discussed: Yes (07/15/2016 12:02:Triny Torres, [facility]) Circumcision: N/A (07/15/2016 12:02:Triny Torres [facility]) Classes Attended: No (07/15/2016 12:02:BRII [place]) Tubal Ligation: No (07/15/2016 12:02:BRII [place]) Tubal Authorization Signed: N/A (07/15/2016 12:02:BRII [place]) Consent: N/A (07/15/2016 12:02:BRII [place]) Consent Signed: N/A (07/15/2016 12:02:BRII [place]) Pain Management Plans: Epidural (07/15/2016 12:02:BRII [place]) Plans for Labor and Delivery: None (07/15/2016 12:02:BRII [place]) Support Person: Bismark Rincon (07/15/2016 12:02:BRII [place]) Support Person Relationship: (07/15/2016 12:02:BRII [place]) Cultural/Spritual Practice: No (07/15/2016 12:02:BRII [place]) Spir/Cult Dietary Needs: No (07/15/2016 12:02:BRII [place]) LIVING SITUATION/DISCHARGE PLAN Living Arrangements: House (07/15/2016 12:02:BRII [place]) Adequate Access to:: Electric; Heat; Refrigeration; Plumbing/Running water; Phone; Transportation (07/15/2016 12:02:BRII [place]) WIC Program: Yes (07/15/2016 12:02:BRII [place]) Discharge Frame Trimmer Person: Bess Stanton (07/15/2016 12:02:BRII [place]) Person to Help after Discharge: Bess Stanton (07/15/2016 12:02:BRII [place]) Currently Using Commun Resources: Yes (07/15/2016 12:02:BRII [place]) Specify Current Resource Used: Medicaid, WIC (07/15/2016 12:02:BRII [place]) Outside Agency/Garment Liner: No (07/15/2016 12:02:BRII [place]) Car Seat for Discharge: Yes (07/15/2016 12:02:BRII [place]) Adoption Requested: No (07/15/2016 12:02:BRII [place]) Pt Contact w/ Post : N/A (07/15/2016 12:02:BRII [place]) LABS Blood Type: O Positive (07/15/2016 12:02:Rica Patton RN) Hemoglobin: 10.1 L (07/16/2016 12:17:QS system process) Hemoglobin: 10.1 L (07/15/2016 15:51:QS system process) Hematocrit: 30.2 L (07/16/2016 12:17:QS system process) Hematocrit: 30.5 L (07/15/2016 15:51:QS system process) MCV: 80 (07/16/2016 12:17:QS system process) MCV: 80 (07/15/2016 15:51:QS system process) Group Beta Strep: positive (07/15/2016 12:02:Rica Patton RN) Gonorrhea: Negative (07/15/2016 12:02:Rica Patton RN) Chlamydia: Negative (Annotations: Data stored by CPN on behalf of user) (07/15/2016 12:02:Rica Patton RN) RPR/VDRL: Nonreactive (07/15/2016 12:02:Rica Patton RN) Hepatitis B: Negative (07/15/2016 12:02:Rica Patton RN) Rubella: Immune (07/15/2016 12:02:Rica Patton RN) OB/PREVIOUS HISTORY Previous Procedures: Ultrasound; NST (07/15/2016 12:02:BRII [place]) Current Procedures: Ultrasound; NST (07/15/2016 12:02:BRII [place]) History of Previous : No (07/15/2016 12:02:BRII [place]) History of Gestational Diabetes: No (07/15/2016 12:02:BRII [place]) History of PIH: No (07/15/2016 12:02:BRII [place]) History of Incompetent Cervix: No (07/15/2016 12:02:BRII [place]) History of Placenta Previa/Abrup: No (07/15/2016 12:02:BRII [place]) History of Macrosomia: No (07/15/2016 12:02:BRII [place]) History of IUGR: No (07/15/2016 12:02:BRII [place]) History of Hemorrhage: No (07/15/2016 12:02:BRII [place]) History of Loss/Stillborn: No (07/15/2016 12:02:BRII [place]) History of : No (07/15/2016 12:02:BRII [place]) History of D (Rh) Sensitization: No (07/15/2016 12:02:BRII [place]) History Recurrent Loss/Stillborn: No (07/15/2016 12:02:BRII [place]) History Depression/PP Depression: Yes (07/15/2016 12:02:BRII [place]) History of Uterine Anomaly/JUAN PABLO: No (07/15/2016 12:02:BRII [place]) History of Infertility: No (07/15/2016 12:02:BRII [place]) History of ART Treatment: No (07/15/2016 12:02:BRII [place]) History of JUAN PABLO: No (07/15/2016 12:02:BRII [place]) Comments Obstetrical History: G1- 2008 male pp depression G2- no complaints (07/15/2016 12:02:BRII [place]) MEDICAL HISTORY Med Hx Diabetes: No (07/15/2016 12:02:BRII [place]) Med Hx Hypertension: No (07/15/2016 12:02:BRII [place]) Med Hx Heart Disease: No (07/15/2016 12:02:BRII [place]) Med Hx Autoimmune Disorder: No (07/15/2016 12:02:BRII [place]) Med Hx Kidney Disease/UTI: No (07/15/2016 12:02:BRII [place]) Med Hx Neurologic/Epilepsy: No (07/15/2016 12:02:BRII [place]) Med Hx Psychiatric Disorders: Yes (07/15/2016 12:02:BRII [place]) Med Hx Hepatitis/Liver Disease: No (07/15/2016 12:02:BRII [place]) Med Hx Varicosities/Phlebitis: No (07/15/2016 12:02:BRII [place]) Med Hx Thyroid Dysfunction: No (07/15/2016 12:02:BRII [place]) Med Hx Trauma/Violence: No (07/15/2016 12:02:BRII [place]) Med Hx Blood Transfusion: No (07/15/2016 12:02:BRII [place]) Med Hx Pulmonary (Asthma,TB): No (07/15/2016 12:02:BRII [place]) Med Hx Breast: No (07/15/2016 12:02:BRII [place]) 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 (07/15/2016 12:02:BRII [place]) Med Hx Hospitalization/Surgery: Yes (07/15/2016 12:02:BRII [place]) Med Hx Anesthetic Complications: No (07/15/2016 12:02:BRII [place]) Med Hx Abnormal Pap Smear: No (07/15/2016 12:02:BRII [place]) Other Medical Diseases: No (07/15/2016 12:02:BRII [place]) Med Hx Significant Family Hx: No (07/15/2016 12:02:BRII [place]) Details of Med/Surg Hx: Bowel blockage with appendectomy 1997 (07/15/2016 12:02:BRII [place]) INFECTIOUS HISTORY Inf Hx Gonorrhea: No (07/15/2016 12:02:BRII [place]) Inf Hx Chlamydia: No (07/15/2016 12:02:BRII [place]) Inf Hx Syphilis: No (07/15/2016 12:02:Triny Torres [facility]) Inf Hx HIV/AIDS: No (07/15/2016 12:02:Triny Torres [facility]) Inf Hx Human Papilloma Virus: No (07/15/2016 12:02:Triny Torres [facility]) Inf Hx Pt/Partner Genital Herpes: No (07/15/2016 12:02:Triny Torres [facility]) Inf Hx Tuberculosis/Exposure: No (07/15/2016 12:02:Triny Torres [facility]) Inf Hx Hepatitis B,C: No (07/15/2016 12:02:Triny Torres [facility]) Inf Hx Rash or Viral Illness: No (07/15/2016 12:02:Triny Torres [facility]) GENETIC HISTORY Gen Hx Age >=35 at ANTONIA: No (07/15/2016 12:02:Triny Torres [facility]) Gen Hx Thalassemia: No (07/15/2016 12:02:Triny Torres [facility]) Gen Hx Congenital Heart Defect: No (07/15/2016 12:02:Triny Torres [facility]) Gen Hx Neural Tube Defect: No (07/15/2016 12:02:Triny Torres [facility]) Gen Hx Down's Syndrome: No (07/15/2016 12:02:Triny Torres [facility]) Gen Hx Xavier-Sachs: No (07/15/2016 12:02:Triny Torres [facility]) Gen Hx Shailesh: No (07/15/2016 12:02:Triny Torres [facility]) Gen Hx Familial Dysautonomia: No (07/15/2016 12:02:BRII [place]) Gen Hx Sickle Cell Disease/Trait: No (07/15/2016 12:02:BRII [place]) Gen Hx Hemophilia/Blood Disorder: No (07/15/2016 12:02:BRII [place]) Gen Hx Muscular Dystrophy: No (07/15/2016 12:02:BRII [place]) Gen Hx Cystic Fibrosis: No (07/15/2016 12:02:BRII [place]) Gen Hx Huntingtons Chorea: No (07/15/2016 12:02:BRII [place]) Gen Hx Mental Retardation/Autism: No (07/15/2016 12:02:BRII [place]) Gen Hx Tested for Fragile X: No (07/15/2016 12:02:BRII [place]) Gen Hx Other Inher/Chromosomal: No (07/15/2016 12:02:BRII [place]) Gen Hx Maternal Metabolic DO: No (07/15/2016 12:02:BRII [place]) Gen Hx Pt Father or FOB Defect: No (07/15/2016 12:02:BRII [place]) Gen Hx Other Genetic History: No (07/15/2016 12:02:BRII [place]) Gen Hx Drugs/Meds since LMP: Yes (07/15/2016 12:02:Gladis Newell RN)
--- NOTE | 2016-07-16 22:46 | L&D Discharge Summary ---
OB Discharge Summary Datetime Report Generated by CPN: 07/16/2016 22:45 DISCHARGE DIAGNOSIS Gestation: 40.3 Number of Babies in Womb: 1 Parity: 1
--- NOTE | 2016-07-17 04:47 | L&D Discharge Summary ---
OB Discharge Summary Datetime Report Generated by CPN: 07/17/2016 04:45 DISCHARGE DIAGNOSIS Gestation: 40.3 Number of Babies in Womb: 1 Parity: 1
--- NOTE | 2016-07-17 04:47 | L&D Admission Assessment ---
LD ADM ASMT Datetime Report Generated by CPN: 07/17/2016 04:45 PATIENT ASSESSMENT Assessment Type: Ongoing Assessment (07/15/2016 20:00:Gladis Newell, RN) Assessment Type: Admission Assessment (07/15/2016 12:37:Triny Camp, RNC) WEIGHT Weight (lb): 205 (07/16/2016 14:37:QS system process) Weight (lb): 205 (07/16/2016 10:05:QS system process) Weight (lb): 205 (07/15/2016 16:35:QS system process) Weight (lb): 205 (07/15/2016 13:12:QS system process) Weight (kg): 93.2 (07/16/2016 14:37:QS system process) Weight (kg): 93.2 (07/16/2016 10:05:QS system process) Weight (kg): 93.2 (07/15/2016 16:35:QS system process) Weight (kg): 93.2 (07/15/2016 13:12:QS system process) Total Wt Gain (lb): -3 (07/16/2016 14:37:QS system process) Total Wt Gain (lb): -3 (07/16/2016 10:05:QS system process) Total Wt Gain (lb): -3 (07/15/2016 16:35:QS system process) Total Wt Gain (lb): -3 (07/15/2016 13:12:QS system process) Wt Gain (kg): -1.5 (07/16/2016 14:37:QS system process) Wt Gain (kg): -1.5 (07/16/2016 10:05:QS system process) Wt Gain (kg): -1.5 (07/15/2016 16:35:QS system process) Wt Gain (kg): -1.5 (07/15/2016 13:12:QS system process) BMI: 40.0 (07/16/2016 14:37:QS system process) BMI: 40.0 (07/16/2016 10:05:QS system process) BMI: 40.0 (07/15/2016 16:35:QS system process) ONSET OF LABOR Onset of Labor: 07/15/2016 17:35 (07/15/2016 12:02:Zara Allen RN) PAIN Pain Scale: 0 (07/16/2016 08:10:Claudia Arcos RN) Pain Scale: 0 (07/16/2016 01:55:Gladis Newell RN) Pain Scale: 0 (07/16/2016 01:35:Gladis Newell RN) Pain Scale: 1 (07/16/2016 01:25:Gladis Newell RN) Pain Scale: 1 (07/16/2016 01:10:Gladis Newell RN) Pain Scale: 1 (07/16/2016 00:55:Gladis Newell RN) Pain Scale: 0 (07/16/2016 00:10:Gladis Newell RN) Pain Scale: 4 (07/15/2016 23:15:Gladis Newell RN) Pain Scale: 3 (07/15/2016 22:15:Gladis Newell RN) Pain Scale: 1 (07/15/2016 20:30:Gladis Newell RN) Pain Scale: 2 (07/15/2016 12:37:BRII [place]) Pain Presence: None/Denies (07/16/2016 08:10:Claudia Arcos RN) Pain Presence: None/Denies (07/16/2016 01:55:Gladis Newell RN) Pain Presence: None/Denies (07/16/2016 01:35:Gladis eNwell RN) Pain Presence: Intermittent (07/16/2016 01:25:Gladis Newell RN) Pain Presence: Intermittent (07/16/2016 01:10:Gladis Newell RN) Pain Presence: Intermittent (07/16/2016 00:55:Gladis Newell RN) Pain Presence: None/Denies (07/16/2016 00:10:Gladis Newell RN) Pain Presence: Intermittent (07/15/2016 23:15:Gladis Newell RN) Pain Presence: Intermittent (07/15/2016 22:15:Gladis Newell RN) Pain Presence: Intermittent (07/15/2016 20:30:Gladis Newell RN) Pain Presence: Intermittent (07/15/2016 12:37:BRII [place]) Pain Type: N/A (07/16/2016 08:10:Claudia Arcos RN) Pain Type: N/A (07/16/2016 01:55:Gladis Newell RN) Pain Type: N/A (07/16/2016 01:35:Gladis Newell RN) Pain Type: Pressure (07/16/2016 01:25:Gladis Newell RN) Pain Type: Pressure (07/16/2016 01:10:Gladis Newell RN) Pain Type: Pressure (07/16/2016 00:55:Gladis Newell RN) Pain Type: N/A (07/16/2016 00:10:Gladis Newell RN) Pain Type: Pressure (07/15/2016 23:15:Gladis Newell RN) Pain Type: Pressure (07/15/2016 22:15:Gladis Newell RN) Pain Type: Pressure (07/15/2016 20:30:Gladis Newell RN) Pain Type: Contraction (07/15/2016 12:37:BRII [place]) Pain Location: Perineum (07/16/2016 01:25:Gladis Newell RN) Pain Location: Perineum (07/16/2016 01:10:Gladis Newell RN) Pain Location: Perineum (07/16/2016 00:55:Gladis Newell RN) Pain Location: Perineum (07/15/2016 23:15:Gladis Newell RN) Pain Location: Abdomen (07/15/2016 22:15:Gladis Newell, RN) Pain Location: Perineum (07/15/2016 20:30:Gladis Newell, RN) Pain Location: Back (07/15/2016 12:37:Triny Torres [facility]) Pain Goal: 1 (07/15/2016 22:15:Gladis Newell, RN) Pain Goal: 2 (07/15/2016 12:37:Triny Torres [facility]) Pain Related to Contraction: Yes (07/15/2016 12:37:Triny Torres [facility]) CONTRACTIONS Frequency (min): 1-1.5 (07/15/2016 23:45:Gladis Newell, RN) Frequency (min): 2-3 (07/15/2016 23:30:Gladis Newell, RN) Frequency (min): 1.5-2.5 (07/15/2016 23:15:Gladis Newell, RN) Frequency (min): 1.5-3 (07/15/2016 23:00:Gladis Newell, RN) Frequency (min): 1-2.5 (07/15/2016 22:45:Gladis Newell, RN) Frequency (min): 1-2 (07/15/2016 22:30:Gladis Newell, RN) Frequency (min): 1.5-3 (07/15/2016 22:15:Gladis Newell, RN) Frequency (min): 1-3 (07/15/2016 22:00:Gladis Newell, RN) Frequency (min): 1.5-3 (07/15/2016 21:45:Gladis Newell, RN) Frequency (min): 1.5-2.5 (07/15/2016 21:30:Gladis Newell, RN) Frequency (min): 1.5-3 (07/15/2016 21:15:Gladis Newell, RN) Frequency (min): 1.5-3 (07/15/2016 21:00:Gladis Newell, RN) Frequency (min): irregular (07/15/2016 20:45:Gladis Newell, RN) Frequency (min): 1-6.5 (07/15/2016 20:30:Gladis Newell, RN) Frequency (min): 2-5 (07/15/2016 20:15:Gladis Newell, RN) Frequency (min): 2-4 (07/15/2016 20:00:Gladis Newell, RN) Frequency (min): 1.5-3 (07/15/2016 19:45:Gladis Newell, RN) Frequency (min): 2-3 (07/15/2016 19:30:Gladis Newell, RN) Frequency (min): 1-3 (07/15/2016 19:15:Gladis Newell, RN) Frequency (min): 2-3 (07/15/2016 19:15:Ricaleon Patton, RN) Frequency (min): 1.5-2 (07/15/2016 19:00:Ricaleon Patton, RN) Frequency (min): 2 (07/15/2016 18:45:Ricaleon Patton, RN) Frequency (min): 2-4 (07/15/2016 18:30:Ricaleon Patton, RN) Frequency (min): 2-3 (07/15/2016 18:15:Rica Abdi, RN) Frequency (min): 2-2.5 (07/15/2016 18:00:Ricaleon Patton, RN) Frequency (min): 2-4.5 (07/15/2016 17:45:Rica Abdi, RN) Frequency (min): 2-3.5 (07/15/2016 17:30:Rica Abdi, RN) Frequency (min): 2.5-3 (07/15/2016 17:15:Rica Abdi, RN) Frequency (min): 2-5 (07/15/2016 17:00:Rica Patton, RN) Frequency (min): 2-4 (07/15/2016 16:45:Rica Patton RN) Frequency (min): 5 (07/15/2016 16:30:Rica Patton, RN) Frequency (min): 3-4.5 (07/15/2016 16:15:Rica Patton, RN) Frequency (min): 2-3 (07/15/2016 16:00:Rica Patton RN) Frequency (min): irritability (07/15/2016 15:45:Rica Patton, RN) Frequency (min): irregular (07/15/2016 14:45:Triny Camp, RNC) Frequency (min): irregular (07/15/2016 13:30:Triny Camp, RNC) Frequency (min): irregular (07/15/2016 13:00:Triny Camp, RNC) Frequency (min): 8-9 (07/15/2016 12:37:Triny Camp, RNC) Duration (sec): 50-70 (07/15/2016 23:45:Gladis Newell, RN) Duration (sec): 50-90 (07/15/2016 23:30:Gladis Newell, RN) Duration (sec): 60-80 (07/15/2016 23:15:Gladis Newell, RN) Duration (sec): 50-90 (07/15/2016 23:00:Gladis Newell, RN) Duration (sec): 50-80 (07/15/2016 22:45:Gladis Newell, RN) Duration (sec): 60-80 (07/15/2016 22:30:Gladis Newell, RN) Duration (sec): 50-80 (07/15/2016 22:15:Gladis Newell, RN) Duration (sec): 60-90 (07/15/2016 22:00:Gladis Newell, RN) Duration (sec): 50-80 (07/15/2016 21:45:Gladis Newell, RN) Duration (sec): 50-80 (07/15/2016 21:30:Gladis Newell, RN) Duration (sec): 50-70 (07/15/2016 21:15:Gladis Newell, RN) Duration (sec): 50-80 (07/15/2016 21:00:Gladis Newell RN) Duration (sec): 40-60 (07/15/2016 20:45:Gladsi Newell, RN) Duration (sec): 50-70 (07/15/2016 20:30:Gladis Newell, RN) Duration (sec): 40-70 (07/15/2016 20:15:Gladis Newell RN) Duration (sec): 40-70 (07/15/2016 20:00:Gladis Newell, RN) Duration (sec): 50-701 (07/15/2016 19:45:Gladis Newell RN) Duration (sec): 50-80 (07/15/2016 19:30:Gladis Newell RN) Duration (sec): 60-90 (07/15/2016 19:15:Gladis Newell RN) Duration (sec): 60-70 (07/15/2016 19:15:Rica Patton RN) Duration (sec): 60-70 (07/15/2016 19:00:Rica Patton RN) Duration (sec): 50-60 (07/15/2016 18:45:Rica Patton RN) Duration (sec): 50-70 (07/15/2016 18:30:Rica Patton RN) Duration (sec): 50-70 (07/15/2016 18:15:Rica Patton RN) Duration (sec): 60-70 (07/15/2016 18:00:Rica Patton RN) Duration (sec): 60-70 (07/15/2016 17:45:Rica Patton RN) Duration (sec): 50-70 (07/15/2016 17:30:Rica Patton RN) Duration (sec): 50-70 (07/15/2016 17:15:Rica Patton RN) Duration (sec): 50-70 (07/15/2016 17:00:Rica Patton RN) Duration (sec): 60-80 (07/15/2016 16:45:Rica Patton RN) Duration (sec): 70-80 (07/15/2016 16:30:Rica Patton RN) Duration (sec): 60-80 (07/15/2016 16:15:Rica Patton RN) Duration (sec): 50-70 (07/15/2016 16:00:Rica Patton RN) Duration (sec): 40-60 (07/15/2016 14:45:Triny Camp, RNC) Duration (sec): 30-50 (07/15/2016 13:30:Triny Camp, RNC) Duration (sec): 50-60 (07/15/2016 13:00:Triny Camp, RNC) Duration (sec): 50-70 (07/15/2016 12:37:Triny Camp, RNC) Quality: Strong (07/15/2016 23:45:Gladis Newell RN) Quality: Strong (07/15/2016 23:30:Gladis Newell RN) Quality: Strong (07/15/2016 23:15:Gladis Newell RN) Quality: Strong (07/15/2016 23:00:Gladis Newell RN) Quality: Strong (07/15/2016 22:45:Gladis Newell RN) Quality: Strong (07/15/2016 22:30:Gladis Newell RN) Quality: Strong (07/15/2016 22:15:Gladis Newell RN) Quality: Strong (07/15/2016 22:00:Gladis Newell RN) Quality: Strong (07/15/2016 21:45:Gladis Newell RN) Quality: Strong (07/15/2016 21:30:Gladis Newell RN) Quality: Moderate to Strong (07/15/2016 21:15:Gladis Newell RN) Quality: Moderate to Strong (07/15/2016 21:00:Gladis Newell RN) Quality: Moderate to Strong (07/15/2016 20:45:Gladis Newell RN) Quality: Moderate to Strong (07/15/2016 20:30:Gladis Newell RN) Quality: Moderate to Strong (07/15/2016 20:15:Gladis Newell RN) Quality: Moderate (07/15/2016 20:00:Gladis Newell RN) Quality: Moderate (07/15/2016 19:45:Gladis Newell RN) Quality: Moderate (07/15/2016 19:30:Gladis Newell RN) Quality: Moderate (07/15/2016 19:15:Gladis Newell RN) Quality: Mild/Moderate (07/15/2016 19:15:Rica Patton RN) Quality: Mild/Moderate (07/15/2016 19:00:Rica Patton RN) Quality: Mild/Moderate (07/15/2016 18:45:Rica Patton RN) Quality: Mild/Moderate (07/15/2016 18:30:Rica Patton RN) Quality: Mild/Moderate (07/15/2016 18:15:Rica Patton RN) Quality: Mild/Moderate (07/15/2016 18:00:Rica Patton RN) Quality: Mild/Moderate (07/15/2016 17:45:Rica Patton RN) Quality: Mild/Moderate (07/15/2016 17:30:Rica Patton RN) Quality: Mild/Moderate (07/15/2016 17:15:Rica Patton RN) Quality: Mild/Moderate (07/15/2016 17:00:Rica Patton RN) Quality: Mild/Moderate (07/15/2016 16:45:Rica Patton RN) Quality: Mild/Moderate (07/15/2016 16:30:Rica Patton RN) Quality: Mild (07/15/2016 16:15:Rica Patton RN) Quality: Mild (07/15/2016 16:00:Rica Patton RN) Quality: Mild (07/15/2016 15:45:Rica Patton RN) Quality: Mild (07/15/2016 15:15:Rica Patton RN) Quality: Mild (07/15/2016 14:45:Triny Torres RNC) Quality: Mild (07/15/2016 13:30:Triny Torres RNC) Quality: Mild (07/15/2016 13:00:Triny Torres RNC) Quality: Mild (07/15/2016 12:37:Triny Torres RNC) Pattern: Normal: <= 5 Contractions in 10 Minutes (07/15/2016 23:45:Gladis Newell, RN) Pattern: Normal: <= 5 Contractions in 10 Minutes (07/15/2016 23:30:Gladis Newell, RN) Pattern: Normal: <= 5 Contractions in 10 Minutes (07/15/2016 23:15:Gladis Newell, RN) Pattern: Normal: <= 5 Contractions in 10 Minutes (07/15/2016 23:00:Gladis Newell, RN) Pattern: Normal: <= 5 Contractions in 10 Minutes (07/15/2016 22:45:Gladis Newell, RN) Pattern: Normal: <= 5 Contractions in 10 Minutes (07/15/2016 22:30:Gladis Newell, RN) Pattern: Normal: <= 5 Contractions in 10 Minutes (07/15/2016 22:15:Gladis Newell, RN) Pattern: Normal: <= 5 Contractions in 10 Minutes (07/15/2016 22:00:Gladis Newell, RN) Pattern: Normal: <= 5 Contractions in 10 Minutes (07/15/2016 21:45:Gladis Newell, RN) Pattern: Normal: <= 5 Contractions in 10 Minutes (07/15/2016 21:30:Gladis Newell, RN) Pattern: Normal: <= 5 Contractions in 10 Minutes (07/15/2016 21:15:Gladis Newell, RN) Pattern: Normal: <= 5 Contractions in 10 Minutes (07/15/2016 21:00:Gladis Newell, RN) Pattern: Normal: <= 5 Contractions in 10 Minutes (07/15/2016 20:45:Gladis Newell, RN) Pattern: Normal: <= 5 Contractions in 10 Minutes (07/15/2016 20:30:Gladis Newell, RN) Pattern: Normal: <= 5 Contractions in 10 Minutes (07/15/2016 20:15:Gladis Newell, RN) Pattern: Normal: <= 5 Contractions in 10 Minutes (07/15/2016 20:00:Gladis Newell, RN) Pattern: Normal: <= 5 Contractions in 10 Minutes (07/15/2016 19:45:Gladis Newell, RN) Pattern: Normal: <= 5 Contractions in 10 Minutes (07/15/2016 19:30:Gladis Newell, RN) Pattern: Normal: <= 5 Contractions in 10 Minutes (07/15/2016 19:15:Gladis Newell RN) Pattern: Normal: <= 5 Contractions in 10 Minutes (07/15/2016 19:15:Rica Patton RN) Pattern: Normal: <= 5 Contractions in 10 Minutes (07/15/2016 19:00:Rica Patton RN) Pattern: Normal: <= 5 Contractions in 10 Minutes (07/15/2016 18:45:Rica Patton RN) Pattern: Normal: <= 5 Contractions in 10 Minutes (07/15/2016 18:30:Rica Patton RN) Pattern: Normal: <= 5 Contractions in 10 Minutes (07/15/2016 18:15:Rica Patton RN) Pattern: Normal: <= 5 Contractions in 10 Minutes (07/15/2016 18:00:Rica Patton RN) Pattern: Normal: <= 5 Contractions in 10 Minutes (07/15/2016 17:45:Rica Patton RN) Pattern: Normal: <= 5 Contractions in 10 Minutes (07/15/2016 17:30:Rica Patton RN) Pattern: Normal: <= 5 Contractions in 10 Minutes (07/15/2016 17:15:Rica Patton RN) Pattern: Normal: <= 5 Contractions in 10 Minutes (07/15/2016 17:00:Rica Patton RN) Pattern: Normal: <= 5 Contractions in 10 Minutes (07/15/2016 16:45:Rica Patton RN) Pattern: Normal: <= 5 Contractions in 10 Minutes (07/15/2016 16:30:Rica Patton RN) Pattern: Normal: <= 5 Contractions in 10 Minutes (07/15/2016 16:15:Rica Patton RN) Pattern: Normal: <= 5 Contractions in 10 Minutes (07/15/2016 16:00:Rica Patton RN) Pattern: Normal: <= 5 Contractions in 10 Minutes (07/15/2016 15:45:Rica Patton RN) Pattern: Normal: <= 5 Contractions in 10 Minutes (07/15/2016 15:15:Rica Patton RN) Pattern: Normal: <= 5 Contractions in 10 Minutes (07/15/2016 14:45:BRII [place]) Pattern: Normal: <= 5 Contractions in 10 Minutes (07/15/2016 13:30:Triny Torres [facility]) Resting Tone [place]: Relaxed (07/15/2016 23:45:Gladis Newell RN) Resting Tone [place]: Relaxed (07/15/2016 23:30:Gladis Newell RN) Resting Tone [place]: Relaxed (07/15/2016 23:15:Gladis Newell RN) Resting Tone [place]: Relaxed (07/15/2016 23:00:Gladis Newell RN) Resting Tone [place]: Relaxed (07/15/2016 22:45:Gladis Newell RN) Resting Tone [place]: Relaxed (07/15/2016 22:30:Gladis Newell RN) Resting Tone [place]: Relaxed (07/15/2016 22:15:Gladis Newell RN) Resting Tone [place]: Relaxed (07/15/2016 22:00:Gladis Newell RN) Resting Tone [place]: Relaxed (07/15/2016 21:45:Gladis Newell RN) Resting Tone [place]: Relaxed (07/15/2016 21:30:Gladis Newell RN) Resting Tone [place]: Relaxed (07/15/2016 21:15:Gladis Newell RN) Resting Tone [place]: Relaxed (07/15/2016 21:00:Gladis Newell RN) Resting Tone [place]: Relaxed (07/15/2016 20:45:Gladis Newell RN) Resting Tone [place]: Relaxed (07/15/2016 20:30:Gladis Newell RN) Resting Tone [place]: Relaxed (07/15/2016 20:15:Gladis Newell RN) Resting Tone [place]: Relaxed (07/15/2016 20:00:Gladis Newell RN) Resting Tone [place]: Relaxed (07/15/2016 19:45:Gladis Newell RN) Resting Tone [place]: Relaxed (07/15/2016 19:30:Gladis Newell RN) Resting Tone [place]: Relaxed (07/15/2016 19:15:Gladis Newell RN) Resting Tone [place]: Relaxed (07/15/2016 19:15:Rica Patton RN) Resting Tone [place]: Relaxed (07/15/2016 19:00:Rica Patton RN) Resting Tone [place]: Relaxed (07/15/2016 18:45:Rica Patton RN) Resting Tone [place]: Relaxed (07/15/2016 18:30:Rica Patton RN) Resting Tone [place]: Relaxed (07/15/2016 18:15:Rica Patton RN) Resting Tone [place]: Relaxed (07/15/2016 18:00:Rica Patton RN) Resting Tone [place]: Relaxed (07/15/2016 17:45:Rica Patton RN) Resting Tone [place]: Relaxed (07/15/2016 17:30:Rica Patton RN) Resting Tone [place]: Relaxed (07/15/2016 17:15:Rica Patton RN) Resting Tone [place]: Relaxed (07/15/2016 17:00:Rica Patton RN) Resting Tone [place]: Relaxed (07/15/2016 16:45:Rica Patton RN) Resting Tone [place]: Relaxed (07/15/2016 16:30:Rica Patton RN) Resting Tone [place]: Relaxed (07/15/2016 16:15:Rica Patton RN) Resting Tone [place]: Relaxed (07/15/2016 16:00:Rica Patton RN) Resting Tone [place]: Relaxed (07/15/2016 15:45:Rica Patton RN) Resting Tone [place]: Relaxed (07/15/2016 15:15:Rica Patton RN) Resting Tone [place]: Relaxed (07/15/2016 14:45:BRII [place]) Resting Tone [place]: Relaxed (07/15/2016 13:30:BRII [place]) Resting Tone [place]: Relaxed (07/15/2016 13:00:BRII [place]) Resting Tone [place]: Relaxed (07/15/2016 12:37:BRII [place]) Contraction Comments: irritability (07/15/2016 16:45:Rica Patton RN) Contraction Comments: irritability (07/15/2016 16:30:Rica Patton RN) Contraction Comments: irritability (07/15/2016 16:15:Rica Patton RN) Contraction Comments: irritability (07/15/2016 16:00:Rica Patton RN) Contraction Comments: irritability (07/15/2016 15:15:Rica Patton RN) VAGINAL EXAM Dilatation (cm): 10.0 (07/15/2016 23:33:Gladis Newell RN) Dilatation (cm): 9.5 (07/15/2016 23:12:Gladis Newell RN) Dilatation (cm): 9.5 (07/15/2016 22:44:Gladis Newell RN) Dilatation (cm): 8.5 (07/15/2016 22:23:Gladis Newell RN) Dilatation (cm): 7.0 (07/15/2016 21:36:Gladis Newell RN) Dilatation (cm): 6.0 (07/15/2016 21:12:Gladis Newell RN) Dilatation (cm): 4.0 (07/15/2016 17:35:Rica Patton RN) Dilatation (cm): 3.0 (07/15/2016 12:37:BRII [place]) Effacement (%): 90 (07/15/2016 22:44:Gladis Newell RN) Effacement (%): 90 (07/15/2016 22:23:Gladis Newell RN) Effacement (%): 90 (07/15/2016 21:36:Gladis Newell RN) Effacement (%): 90 (07/15/2016 21:12:Gladis Newell RN) Effacement (%): 80 (07/15/2016 17:35:Rica Patton RN) Station: 1 (07/15/2016 23:33:Gladis Newell RN) Station: 1 (07/15/2016 23:12:Gladis Newell RN) Station: 0 (07/15/2016 22:44:Gladis Newell RN) Station: 0 (07/15/2016 22:23:Gladis Newell RN) Station: -1 (07/15/2016 21:36:Gladis Newell RN) Station: -1 (07/15/2016 21:12:Gladis Newell RN) Station: -1 (07/15/2016 17:35:Rica Patton RN) Presentation on Admission: Vertex (07/15/2016 12:37:BRII [place]) Membranes Status: Ruptured (07/15/2016 17:35:Rica Patton RN) Membranes Status: Intact (07/15/2016 12:37:BRII [place]) Membranes Rupture D/ (07/15/2016 12:02:Gladis Newell RN) ROM Method: Artificial (07/15/2016 17:35:Rica Patton RN) Amniotic Fluid Color: Clear (07/15/2016 17:35:Rica Patton RN) Amniotic Fluid Amount: Small (07/15/2016 17:35:Rica Patton RN) DELACRUZ'S SCORE Delacruz's Score Dilatation (cm): 3-4 cms (07/15/2016 12:37:BRII [place]) Delacruz's Score Effacement (%): 60-70_ effaced (07/15/2016 12:37:BRII [place]) Delacruz's Score Station: minus 1 to 0 (07/15/2016 12:37:Triny Torres [facility]) Delacruz's Score Consistency: Soft (07/15/2016 12:37:Triny Torres RN) Delacruz's Score Position: Midposition (07/15/2016 12:37:Triny Torres [facility]) Total Delacruz's Score: 9 (07/15/2016 12:37:QS system process) Delacruz's Score Text: 9-14 = Usually no failure for induction (07/15/2016 12:37:QS system process) NEURO Level of Consciousness: Fully Conscious (07/15/2016 20:00:Gladis Newell RN) Level of Consciousness: Fully Conscious (07/15/2016 12:37:Triny Torres RN) DTR's/Clonus: DTRs 2+; No Clonus (07/15/2016 20:00:Gladis Newell RN) DTR's/Clonus: DTRs 2+; No Clonus (07/15/2016 12:37:Triny Torres [facility]) Headache: Denies (07/15/2016 20:00:Gladis Newell RN) Headache: Denies (07/15/2016 12:37:BRII [place]) Dizziness: No (07/15/2016 20:00:Gladis Newell RN) Dizziness: No (07/15/2016 12:37:Triny Torres [facility]) Blurred Vision: No (07/15/2016 20:00:Gladis Newell RN) Blurred Vision: No (07/15/2016 12:37:Triny Torres [facility]) Extremity Numbness/Tingling : None (07/15/2016 20:00:Gladis Newell RN) Extremity Numbness/Tingling : None (07/15/2016 12:37:BRII [place]) Extremity Movement: Full Range of Motion (07/15/2016 20:00:Gladis Newell RN) Extremity Movement: Full Range of Motion (07/15/2016 12:37:BRII [place]) CARDIOVASCULAR Heart Rhythm: Regular (07/15/2016 20:00:Gladis Newell RN) Heart Rhythm: Regular (Annotations: s1s2 noted with no murmur or arrythmia auscultated) (07/15/2016 12:37:BRII [place]) Nailbeds: [place] (07/15/2016 20:00:Gladis Newell RN) Nailbeds: [place] (07/15/2016 12:37:BRII [place]) Capillary Refill: Less than 3 Seconds (07/15/2016 20:00:Gladis Newell RN) Capillary Refill: Less than 3 Seconds (07/15/2016 12:37:BRII [place]) Lower Extremities Edema: Bilateral Lower Extremities (07/15/2016 20:00:Gladis Newell RN) Lower Extremities Edema: Bilateral Lower Extremities (07/15/2016 12:37:BRII [place]) Lower Extremities Edema Degree: 2+ (07/15/2016 20:00:Gladis Newell RN) Lower Extremities Edema Degree: 1+ (07/15/2016 12:37:BRII [place]) Upper Extremities Edema: None (07/15/2016 20:00:Gladis Newell RN) Upper Extremities Edema: Bilateral Upper Extremities (07/15/2016 12:37:BRII [place]) Upper Extremities Edema Degree: None (07/15/2016 20:00:Gladis Newell RN) Upper Extremities Edema Degree: 1+ (07/15/2016 12:37:BRII [place]) Facial Edema: None (07/15/2016 20:00:Gladis Newell RN) Facial Edema: None (07/15/2016 12:37:BRII [place]) Rakan's Sign Left Leg: Negative (07/15/2016 20:00:Gladis Newell RN) Rakan's Sign Left Leg: Negative (07/15/2016 12:37:BRII [place]) Rakan's Sign Right Leg: Negative (07/15/2016 20:00:Gladis Newell RN) Rakan's Sign Right Leg: Negative (07/15/2016 12:37:BRII [place]) DVT RISK ASSESSMENT DVT Risk Age: Age less than 41 years (07/15/2016 20:00:Gladis Newell RN) DVT Risk Age: Age less than 41 years (07/15/2016 12:37:BRII [place]) DVT Risk BMI: BMI<31 (07/15/2016 20:00:Gladis Newell RN) DVT Risk BMI: BMI 41 to 50 (07/15/2016 12:37:BRII [place]) DVT Risk Surgery: None Applicable (07/15/2016 20:00:Gladis Newell RN) DVT Risk Surgery: History of Prior Major Surgery (07/15/2016 12:37:BRII [place]) DVT Risk Other: Women Only- or (<1 month) (07/15/2016 20:00:Gladis Newell RN) DVT Risk Other: Women Only- or (<1 month) (07/15/2016 12:37:BRII [place]) DVT Risk Total: 1 (07/15/2016 20:00:QS system process) DVT Risk Total: 4 (07/15/2016 12:37:QS system process) DVT Risk Text: Low Risk (<10%) No specific measures, early ambulation (07/15/2016 20:00:QS system process) DVT Risk Text: High Risk (20-40%)- Consider stockings, compresssion device, pharmacological therapy per hospital policy (07/15/2016 12:37:QS system process) RESPIRATORY Respiratory Effort: Unlabored; Regular Rhythm; Equal Expansion (07/15/2016 20:00:Gladis Nweell RN) Respiratory Effort: Unlabored; Regular Rhythm; Equal Expansion (07/15/2016 12:37:BRII [place]) Breath Sounds, Left: Clear and Equal (07/15/2016 20:00:Gladis Newell RN) Breath Sounds, Left: Clear and Equal (07/15/2016 12:37:BRII [place]) Breath Sounds, Right: Clear and Equal (07/15/2016 20:00:Gladis Newell RN) Breath Sounds, Right: Clear and Equal (07/15/2016 12:37:BRII [place]) Cough Productivity: None (07/15/2016 20:00:Gladis Newell RN) Cough Productivity: None (07/15/2016 12:37:Triny Torres, RNC) GASTROINTESTINAL Nausea/Vomiting: Present (Annotations: nausea) (07/15/2016 20:00:Gladis Newell RN) Nausea/Vomiting: Denies (07/15/2016 12:37:Triny Torres, RAJC) Bowel Sounds: Normoactive (07/15/2016 20:00:Gladis Newell RN) Bowel Sounds: Normoactive; All Quadrants (07/15/2016 12:37:Triny Torres RNC) RUQ Epigastric Pain: Denies (07/15/2016 20:00:Gladis Newell RN) RUQ Epigastric Pain: Denies (07/15/2016 12:37:BRII [place]) Bowel Patterns: Soft, Formed Stool (07/15/2016 20:00:Gladis Newell RN) Bowel Patterns: Constipation (07/15/2016 12:37:BRII [place]) Hemorrhoids: None (07/15/2016 20:00:Gladis Newell RN) Hemorrhoids: Present (07/15/2016 12:37:BRII [place]) Diet Type: Regular diet (07/15/2016 20:00:Gladis Newell RN) Diet Type: Regular diet (07/15/2016 12:37:BRII [place]) Last Meal: 07/15/2016 09:00 (07/15/2016 12:37:Triny Torres RNC) GENITOURINARY Bladder: Nondistended (07/15/2016 20:00:Gladis Newell RN) Bladder: Nondistended (07/15/2016 12:37:Triny Torres, RNC) Catheter: Ward Draining to Bedside Bag (07/15/2016 20:00:Gladis Newell RN) Frequency of Urination: No (07/15/2016 20:00:Gladis Newell RN) Frequency of Urination: No (07/15/2016 12:37:Triny Torres RNC) Urination Burning: No (07/15/2016 20:00:Gladis Newell RN) Urination Burning: No (07/15/2016 12:37:Triny Torres, RNC) CVA Tenderness: No (07/15/2016 20:00:Gladis Newell RN) CVA Tenderness: No (07/15/2016 12:37:Triny Torres, RNC) Vaginal Bleeding: None (07/15/2016 12:37:Triny Torres, RNC) Vaginal Discharge Amount: Small (07/15/2016 20:00:Gladis Newell RN) Vaginal Discharge Amount: Small (07/15/2016 12:37:Triny Torres, RNC) Vaginal Discharge Color: White (07/15/2016 12:37:Triny Torres, RNC) Vaginal Discharge Odor: Non-Odorous (07/15/2016 20:00:Gladis Newell RN) Vaginal Discharge Odor: Non-Odorous (07/15/2016 12:37:Triny Torres, RNC) Vaginal Discharge Character: Watery (07/15/2016 20:00:Gladis Newell RN) Vaginal Discharge Character: Thin (07/15/2016 12:37:Triny Torres, RNC) INTEGUMENTARY Skin Color: Normal for Race (07/15/2016 20:00:Gladis Newell, RN) Skin Color: Normal for Race (07/15/2016 12:37:Triny Camp, RNC) Skin Temperature: Warm (07/15/2016 20:00:Gladis Newell, RN) Skin Temperature: Warm (07/15/2016 12:37:Triny Camp, RNC) Skin Moisture: Dry (07/15/2016 20:00:Gladis Newell, RN) Skin Moisture: Dry (07/15/2016 12:37:Triny Camp, RNC) Surgical Scars: abdominal x2 (07/15/2016 12:37:Triny Camp, RNC) Body Piercings/Tattoos: 2 tattoos (07/15/2016 12:37:Triny Camp, C) ELIAN SKIN ASSESSMENT Elian Scale Sensory Perception: No Impairment- Responds to verbal commands. Has no sensory deficit which would limit ability to feel or voice pain or discomfort (07/15/2016 20:00:Gladis Newell, RN) Elian Scale Sensory Perception: No Impairment- Responds to verbal commands. Has no sensory deficit which would limit ability to feel or voice pain or discomfort (07/15/2016 12:37:BRII [place]) Elian Scale Moisture: Rarely Moist- Skin is usually dry. Linen only requires changing at routine intervals (07/15/2016 20:00:Gladis Newell RN) Elian Scale Moisture: Rarely Moist- Skin is usually dry. Linen only requires changing at routine intervals (07/15/2016 12:37:BRII [place]) Elian Scale Activity: Bedfast- Confined to bed. (07/15/2016 20:00:Gladis Newell RN) Elian Scale Activity: Walks Frequently- Walks outside the room at least twice a day and inside room at least every 2 hours during the day. (07/15/2016 12:37:BRII [place]) Elian Scale Mobility: No Limitations- Makes major and frequent changes in position without assistance (07/15/2016 20:00:Gladis Newell RN) Elian Scale Mobility: No Limitations- Makes major and frequent changes in position without assistance (07/15/2016 12:37:BRII [place]) Elian Scale Nutrition: Excellent- Eats most of every meal. Never refuses a meal. Usually eats a total of 4 or more servings of meat and dairy products. Occasionally eats between meals. Does not require supplementation (07/15/2016 20:00:Gladis Newell RN) Elian Scale Nutrition: Excellent- Eats most of every meal. Never refuses a meal. Usually eats a total of 4 or more servings of meat and dairy products. Occasionally eats between meals. Does not require supplementation (07/15/2016 12:37:BRII [place]) Elian Scale Friction and Shear: No Apparent Problem- Moves in bed and in chair independently and has sufficient muscle strength to lift up completely during move. Maintains good position in bed or chair at all times (07/15/2016 20:00:Gladis Newell RN) Elian Scale Friction and Shear: No Apparent Problem- Moves in bed and in chair independently and has sufficient muscle strength to lift up completely during move. Maintains good position in bed or chair at all times (07/15/2016 12:37:Triny Camp, RNC) Elian Scale Total: 20 (07/15/2016 20:00:QS system process) Elian Scale Total: 23 (07/15/2016 12:37:QS system process) Elian Scale Risk: No Risk of Pressure Ulcer Noted at this Time (07/15/2016 20:00:QS system process) Elian Scale Risk: No Risk of Pressure Ulcer Noted at this Time (07/15/2016 12:37:QS system process) SUPPORT Family Support: Significant Other supportive, at bedside frequently; Family supportive (07/15/2016 20:00:Gladis Newell RN) Family Support: Significant Other supportive, at bedside frequently; Family supportive (07/15/2016 12:37:Triny Camp, RNC) Emotional State: Calm/Relaxed (07/15/2016 20:00:Gladis Newell RN) Emotional State: Calm/Relaxed (07/15/2016 12:37:Triny Camp RNC) SAFETY Call Webb Within Reach: Yes (07/15/2016 20:00:Gladis Newell RN) Call Webb Within Reach: Yes (07/15/2016 12:37:BRII [place]) Side Rails Up: Yes (07/15/2016 20:00:Gladis Newell RN) Side Rails Up: Yes (07/15/2016 12:37:BRII [place]) Bed Wheels Locked: Yes (07/15/2016 20:00:Gladis Newell RN) Bed Wheels Locked: Yes (07/15/2016 12:37:BRII [place]) Arm Bands Present: Yes (07/15/2016 20:00:Gladis Newell RN) Arm Bands Present: Yes (07/15/2016 12:37:BRII [place]) Isolation: [place] (07/15/2016 20:00:Gladis Newell RN) Isolation: [place] (07/15/2016 12:37:BRII [place]) FALL SCREEN Fall Risk History of Falling: (0) No (07/15/2016 12:37:BRII [place]) Fall Risk Secondary Diagnosis: (0) No (07/15/2016 12:37:BRII [place]) Fall Risk Ambulatory Aid: (0) None/Bedrest/Wheelchair/Nurse Assist (07/15/2016 12:37:BRII [place]) Fall Risk IV Therapy: (0) No (07/15/2016 12:37:BRII [place]) Fall Risk Gait: (0) Normal/Bedrest/Immobile (07/15/2016 12:37:BRII [place]) Fall Risk Mental Status: (0) Oriented to Own Ability (07/15/2016 12:37:Triny Camp, RNC) Fall Risk Score: 0 (07/15/2016 12:37:QS system process) Fall Risk Score Definition: No Risk: No action required (07/15/2016 12:37:QS system process) RECENT TRAVEL/INFECTIOUS DISEASE Recent Exp Communicable Disease: No (07/15/2016 12:37:Triny Camp, RNC) Cough or Fever: No (07/15/2016 12:37:Triny Camp, RNC) Foreign Travel Past 10 Days: No (07/15/2016 12:37:Triny Camp, RNC) Open Wounds or Sores: No (07/15/2016 12:37:Triny Camp, RNC) Prior Antibiotic Resistance Tx: No (07/15/2016 12:37:Triny Camp, RNC) Cultures Obtained: Not Applicable (07/15/2016 12:37:Triny Camp, RNC) Isolation Initiated: No (07/15/2016 12:37:Triny Camp, RNC) Pt/Family Education: Not Applicable (07/15/2016 12:37:Triny Camp, RNC) BABY A FHR Baseline Rate (bpm) Baby A: 175 (07/15/2016 23:45:Gladis Neewll RN) FHR Baseline Rate (bpm) Baby A: 170 (07/15/2016 23:30:Gladis Newell RN) FHR Baseline Rate (bpm) Baby A: 175 (07/15/2016 23:00:Gladis Newell RN) FHR Baseline Rate (bpm) Baby A: 175 (07/15/2016 22:45:Gladis Newell RN) FHR Baseline Rate (bpm) Baby A: 175 (07/15/2016 22:30:Gladis Newell RN) FHR Baseline Rate (bpm) Baby A: 170 (07/15/2016 22:15:Gladis Newell RN) FHR Baseline Rate (bpm) Baby A: 150 (07/15/2016 22:00:Gladis Newell RN) FHR Baseline Rate (bpm) Baby A: 155 (07/15/2016 21:45:Gladis Newell RN) FHR Baseline Rate (bpm) Baby A: 155 (07/15/2016 21:30:Gladis Newell RN) FHR Baseline Rate (bpm) Baby A: 150 (07/15/2016 21:15:Gladis Newell RN) FHR Baseline Rate (bpm) Baby A: 150 (07/15/2016 21:00:Gladis Newell RN) FHR Baseline Rate (bpm) Baby A: 150 (07/15/2016 20:45:Gladis Newell RN) FHR Baseline Rate (bpm) Baby A: 150 (07/15/2016 20:30:Gladis Newell RN) FHR Baseline Rate (bpm) Baby A: 150 (07/15/2016 20:15:Gladis Newell RN) FHR Baseline Rate (bpm) Baby A: 140 (07/15/2016 20:00:Gladis Newell RN) FHR Baseline Rate (bpm) Baby A: 155 (07/15/2016 19:45:Gladis Newell RN) FHR Baseline Rate (bpm) Baby A: 155 (07/15/2016 19:30:Gladis Newell RN) FHR Baseline Rate (bpm) Baby A: 155 (07/15/2016 19:15:Gladis Newell RN) FHR Baseline Rate (bpm) Baby A: 155 (07/15/2016 19:15:Rica Patton RN) FHR Baseline Rate (bpm) Baby A: 155 (07/15/2016 19:00:Rica Patton RN) FHR Baseline Rate (bpm) Baby A: 155 (07/15/2016 18:45:Rica Patton RN) FHR Baseline Rate (bpm) Baby A: 150 (07/15/2016 18:30:Rica Patton RN) FHR Baseline Rate (bpm) Baby A: 150 (07/15/2016 18:15:Rica Patton RN) FHR Baseline Rate (bpm) Baby A: 150 (07/15/2016 18:00:Rica Patton RN) FHR Baseline Rate (bpm) Baby A: 150 (07/15/2016 17:45:Rica Patton RN) FHR Baseline Rate (bpm) Baby A: 150 (07/15/2016 17:30:Rica Patton RN) FHR Baseline Rate (bpm) Baby A: 145 (07/15/2016 17:15:Rica Patton RN) FHR Baseline Rate (bpm) Baby A: 150 (07/15/2016 17:00:Rica Patton RN) FHR Baseline Rate (bpm) Baby A: 140 (07/15/2016 16:45:Rica Patton RN) FHR Baseline Rate (bpm) Baby A: 140 (07/15/2016 16:30:Rica Patton RN) FHR Baseline Rate (bpm) Baby A: 145 (07/15/2016 16:15:Rica Patton RN) FHR Baseline Rate (bpm) Baby A: 145 (07/15/2016 16:00:Rica Patton RN) FHR Baseline Rate (bpm) Baby A: 145 (07/15/2016 15:45:Rica Patton RN) FHR Baseline Rate (bpm) Baby A: 140 (07/15/2016 15:15:Rica Patton RN) FHR Baseline Rate (bpm) Baby A: 150 (07/15/2016 14:45:BRII [place]) FHR Baseline Rate (bpm) Baby A: 155 (07/15/2016 13:30:BRII [place]) FHR Baseline Rate (bpm) Baby A: 145 (07/15/2016 13:00:BRII [place]) Variability Baby A: Moderate 6-25 bpm (07/15/2016 23:45:Gladis Newell RN) Variability Baby A: Moderate 6-25 bpm (07/15/2016 23:30:Gladis Newell RN) Variability Baby A: Moderate 6-25 bpm (07/15/2016 23:15:Gladis Newell RN) Variability Baby A: Minimal - Undetectable to <=5 bpm (07/15/2016 23:00:Gladis Newell RN) Variability Baby A: Moderate 6-25 bpm (07/15/2016 22:45:Gladis Newell RN) Variability Baby A: Moderate 6-25 bpm (07/15/2016 22:30:Gladis Newell RN) Variability Baby A: Moderate 6-25 bpm (07/15/2016 22:15:Gladis Newell RN) Variability Baby A: Moderate 6-25 bpm (07/15/2016 22:00:Gladis Newell RN) Variability Baby A: Moderate 6-25 bpm (07/15/2016 21:45:Gladis Newell RN) Variability Baby A: Moderate 6-25 bpm (07/15/2016 21:30:Gladis Newell RN) Variability Baby A: Moderate 6-25 bpm (07/15/2016 21:15:Gladis Newell RN) Variability Baby A: Moderate 6-25 bpm (07/15/2016 21:00:Gladis Newell RN) Variability Baby A: Moderate 6-25 bpm (07/15/2016 20:45:Gladis Newell RN) Variability Baby A: Moderate 6-25 bpm (07/15/2016 20:30:Gladis Newell RN) Variability Baby A: Moderate 6-25 bpm (07/15/2016 20:15:Gladis Newell RN) Variability Baby A: Moderate 6-25 bpm (07/15/2016 20:00:Gladis Newell RN) Variability Baby A: Moderate 6-25 bpm (07/15/2016 19:45:Gladis Newell RN) Variability Baby A: Moderate 6-25 bpm (07/15/2016 19:30:Gladis Newell RN) Variability Baby A: Moderate 6-25 bpm (07/15/2016 19:15:Gladis Newell RN) Variability Baby A: Moderate 6-25 bpm (07/15/2016 19:15:Rica Patton RN) Variability Baby A: Moderate 6-25 bpm (07/15/2016 19:00:Rica Patton RN) Variability Baby A: Moderate 6-25 bpm (07/15/2016 18:45:Rica Patton RN) Variability Baby A: Moderate 6-25 bpm (07/15/2016 18:30:Rica Patton RN) Variability Baby A: Moderate 6-25 bpm (07/15/2016 18:15:Rica Patton RN) Variability Baby A: Moderate 6-25 bpm (07/15/2016 18:00:Rica Patton RN) Variability Baby A: Moderate 6-25 bpm (07/15/2016 17:45:Rica Patton RN) Variability Baby A: Moderate 6-25 bpm (07/15/2016 17:30:Rica Patton RN) Variability Baby A: Moderate 6-25 bpm (07/15/2016 17:15:Rica Patton RN) Variability Baby A: Moderate 6-25 bpm (07/15/2016 17:00:Rica Patton RN) Variability Baby A: Moderate 6-25 bpm (07/15/2016 16:45:Rica Patton RN) Variability Baby A: Moderate 6-25 bpm (07/15/2016 16:30:Rica Patton RN) Variability Baby A: Moderate 6-25 bpm (07/15/2016 16:15:Rica Patton RN) Variability Baby A: Moderate 6-25 bpm (07/15/2016 16:00:Rica Patton RN) Variability Baby A: Moderate 6-25 bpm (07/15/2016 15:45:Rica Patton RN) Variability Baby A: Moderate 6-25 bpm (07/15/2016 15:15:Rica Patton RN) Variability Baby A: Moderate 6-25 bpm (07/15/2016 14:45:BRII [place]) Variability Baby A: Moderate 6-25 bpm (07/15/2016 13:30:BRII [place]) Variability Baby A: Moderate 6-25 bpm (07/15/2016 13:00:BRII [place]) Accelerations Baby A: 10X10 (07/15/2016 23:45:Gladis Newell RN) Accelerations Baby A: 10X10 (07/15/2016 23:30:Gladis Newell RN) Accelerations Baby A: 10X10 (07/15/2016 23:15:Gladis Newell RN) Accelerations Baby A: None (07/15/2016 23:00:Gladis Newell RN) Accelerations Baby A: None (07/15/2016 22:45:Gladis Newell RN) Accelerations Baby A: None (07/15/2016 22:30:Gladis Newell RN) Accelerations Baby A: 10X10 (07/15/2016 22:15:Gladis Newell RN) Accelerations Baby A: 15X15 (07/15/2016 22:00:Gladis Newell RN) Accelerations Baby A: 15X15 (07/15/2016 21:45:Gladis Newell RN) Accelerations Baby A: 15X15 (07/15/2016 21:30:Gladis Newell RN) Accelerations Baby A: 15X15 (07/15/2016 21:15:Gladis Newell RN) Accelerations Baby A: 15X15 (07/15/2016 21:00:Gladis Newell RN) Accelerations Baby A: 10X10 (07/15/2016 20:45:Gladis Newell RN) Accelerations Baby A: 15X15 (07/15/2016 20:30:Gladis Newell RN) Accelerations Baby A: 10X10 (07/15/2016 20:15:Gladis Newell RN) Accelerations Baby A: 15X15 (07/15/2016 20:00:Gladis Newell RN) Accelerations Baby A: 10X10 (07/15/2016 19:45:Gladis Newell RN) Accelerations Baby A: 15X15 (07/15/2016 19:30:Gladis Newell RN) Accelerations Baby A: 15X15 (07/15/2016 19:15:Gladis Newell RN) Accelerations Baby A: 15X15 (07/15/2016 19:15:Rica Patton RN) Accelerations Baby A: 15X15 (07/15/2016 19:00:Rica Patton RN) Accelerations Baby A: 15X15 (07/15/2016 18:45:Rica Patton RN) Accelerations Baby A: 15X15 (07/15/2016 18:30:Rica Patton RN) Accelerations Baby A: 15X15 (07/15/2016 18:15:Rica Patton RN) Accelerations Baby A: 15X15 (07/15/2016 18:00:Rica Patton RN) Accelerations Baby A: 15X15 (07/15/2016 17:45:Rica Patton RN) Accelerations Baby A: 15X15 (07/15/2016 17:30:Rica Patton RN) Accelerations Baby A: 15X15 (07/15/2016 17:15:Rica Patton RN) Accelerations Baby A: 15X15 (07/15/2016 17:00:Rica Patton RN) Accelerations Baby A: 15X15 (07/15/2016 16:45:Rica Patton RN) Accelerations Baby A: 15X15 (07/15/2016 16:30:Rica Patton RN) Accelerations Baby A: 15X15 (07/15/2016 16:15:Rica Patton RN) Accelerations Baby A: 15X15 (07/15/2016 16:00:Rica Patton RN) Accelerations Baby A: 15X15 (07/15/2016 15:45:Rica Patton RN) Accelerations Baby A: 15X15 (07/15/2016 15:15:Rica Patton RN) Accelerations Baby A: 15X15 (07/15/2016 14:45:BRII [place]) Accelerations Baby A: 15X15 (07/15/2016 13:30:BRII [place]) Accelerations Baby A: 15X15 (07/15/2016 13:00:BRII [place]) Decelerations Baby A: Late; Variable (07/15/2016 23:45:Gladis Newell, RN) Decelerations Baby A: Variable (07/15/2016 23:30:Gladis Newell RN) Decelerations Baby A: Variable (07/15/2016 23:15:Gladis Newell RN) Decelerations Baby A: Variable (07/15/2016 23:00:Gladis Newell RN) Decelerations Baby A: Variable (07/15/2016 22:45:Gladis Newell RN) Decelerations Baby A: Variable (07/15/2016 22:30:Gladis Newell RN) Decelerations Baby A: Variable (07/15/2016 22:15:Gladis Newell RN) Decelerations Baby A: None; Variable (07/15/2016 22:00:Gladis Newell RN) Decelerations Baby A: Variable (07/15/2016 21:45:Gladis Newell RN) Decelerations Baby A: Variable (07/15/2016 21:30:Gladis Newell RN) Decelerations Baby A: Early (07/15/2016 21:15:Gladis Newell RN) Decelerations Baby A: Early (07/15/2016 21:00:Gladis Newell RN) Decelerations Baby A: None (07/15/2016 20:45:Gladis Newell RN) Decelerations Baby A: None (07/15/2016 20:30:Gladis Newell RN) Decelerations Baby A: Variable (07/15/2016 20:15:Gladis Newell RN) Decelerations Baby A: Variable (07/15/2016 20:00:Gladis Newell RN) Decelerations Baby A: Early (07/15/2016 19:45:Gladis Newell RN) Decelerations Baby A: Early (07/15/2016 19:30:Gladis Newell RN) Decelerations Baby A: Early (07/15/2016 19:15:Gladis Newell RN) Decelerations Baby A: None (07/15/2016 19:15:Rica Patton RN) Decelerations Baby A: None (07/15/2016 19:00:Rica Patton RN) Decelerations Baby A: None (07/15/2016 18:45:Rica Patton RN) Decelerations Baby A: None (07/15/2016 18:30:Rica Patton RN) Decelerations Baby A: None (07/15/2016 18:15:Rica Patton RN) Decelerations Baby A: None (07/15/2016 18:00:Rica Patton RN) Decelerations Baby A: None (07/15/2016 17:45:Rica Patton RN) Decelerations Baby A: None (07/15/2016 17:30:Rica Patton RN) Decelerations Baby A: None (07/15/2016 17:15:Rica Patton RN) Decelerations Baby A: None (07/15/2016 17:00:Rica Patton RN) Decelerations Baby A: None (07/15/2016 16:45:Rica Patton RN) Decelerations Baby A: None (07/15/2016 16:30:Rica Patton RN) Decelerations Baby A: None (07/15/2016 16:15:Rica Patton RN) Decelerations Baby A: None (07/15/2016 16:00:Rica Patton RN) Decelerations Baby A: None (07/15/2016 15:45:Rica Patton RN) Decelerations Baby A: None (07/15/2016 15:15:Rica Patton RN) Decelerations Baby A: Variable (07/15/2016 14:45:BRII [place]) Decelerations Baby A: None (07/15/2016 13:30:BRII [place]) Decelerations Baby A: None (07/15/2016 13:00:BRII [place]) ADDITIONAL COMMENTS Assessment Flag: Admission Assessment (07/15/2016 12:37:QS system process)
--- NOTE | 2016-07-17 04:47 | L&D Current Admission ---
Current Admit Datetime Report Generated by CPN: 07/17/2016 04:45 ADMISSION INFORMATION Current Admit Date/Time: 07/15/2016 14:48 (07/15/2016 12:37:BRII [place]) Reason for Admission: Induction of Labor (07/15/2016 12:37:BRII [place]) Chief Complaint: Contractions; Other (Annotations: pain and pressure x 3 weeks worsen today beginning aroun 10 ) (07/15/2016 12:37:BRII [place]) Medications During : Vitamin (07/15/2016 12:37:BRII [place]) Meds During -Oth: ambien and buspar (07/15/2016 12:37:BRII [place]) EGA per Dates: 40.3 (07/15/2016 12:37:QS system process) Method of Arrival: Wheelchair (07/15/2016 12:37:BRII [place]) Records Available: Yes (07/15/2016 12:37:BRII [place]) General Admission Information: Reviewed; Updated; Confirmed (07/15/2016 12:37:BRII [place]) General Admission Reviewed By: Triny TERESA (07/15/2016 12:37:BRII [place]) BELONGINGS/ADVANCED DIRECTIVES Other Belongings: See [facility] Valuables consent (07/15/2016 12:37:BRII [place]) Disposition of Belongings: Kept with Patient (07/15/2016 12:37:BRII [place]) Durable Power of Assistant Designer: No (07/15/2016 12:37:BRII [place]) Living Will: No (07/15/2016 12:37:BRII [place]) Organ Donor: Yes (07/15/2016 12:37:BRII [place]) Pt Rights Information Given: Yes (07/15/2016 12:37:BRII [place]) Pt Understands Pt Rights: Yes (07/15/2016 12:37:BRII [place]) LEARNING ASSESSMENT Knowledge Level: Understands L_D Process; Understands Care Activities; Had Pre-Hospital Education (07/15/2016 12:37:BRII [place]) Barriers to Learning: None (07/15/2016 12:37:BRII [place]) Learning Readiness: Motivated (07/15/2016 12:37:BRII [place]) Learns Best By: 1 to 1 Instruction; Demonstration (07/15/2016 12:37:BRII [place]) Learning Needs: Labor and Delivery Process; Pain Management; Symptoms to Report; Treatment Plan; Medication; Diagnosis; Nutrition; Equipment; Infant Care; Community Resources; Other (07/15/2016 12:37:BRII [place]) Learning Assessment Comments: (07/15/2016 12:37:BRII [place]) DOMESTIC VIOLANCE SCREENING Dom Viol Threatened/Hurt: No (07/15/2016 12:37:BRII [place]) Hx of Abuse/Neglect past 2yrs: No (07/15/2016 12:37:BRII [place]) Feel Unsafe Going Home: No (07/15/2016 12:37:BRII [place]) Addt'l Observ Indicating Abuse: No (07/15/2016 12:37:BRII [place]) Reason Unable to Complete Screen: N/A, Screen Completed (07/15/2016 12:37:BRII [place]) Considered Personal Harm/Suicide: No (07/15/2016 12:37:BRII [place]) NUTRITIONAL/FUNCTIONAL SCREENING Problem with Appetite >5 Days: No (07/15/2016 12:37:BRII [place]) Chew/Swallow Difficulties: No (07/15/2016 12:37:BRII [place]) Inappropriate Wt Gain/Loss: No (07/15/2016 12:37:BRII [place]) Presence Skin Breakdown/Ulcer: No (07/15/2016 12:37:BRII [place]) Special Diet: No (07/15/2016 12:37:BRII [place]) Pt Requests Dry Transfer Worker Visit: No (07/15/2016 12:37:BRII [place]) Hx of Any of the Following?: N/A (07/15/2016 12:37:BRII [place]) New Diagnosis of: N/A (07/15/2016 12:37:BRII [place]) Requires Assist w/Ambulation: No (07/15/2016 12:37:BRII [place]) Uses Assist Device to Ambulate: No (07/15/2016 12:37:BRII [place]) Pt Requires Help w/ADL's: No (07/15/2016 12:37:BRII [place])
--- NOTE | 2016-07-17 04:47 | L&D General Admission ---
General Admit Datetime Report Generated by CPN: 07/17/2016 04:45 INFORMATION Patient Age: 26 (05/11/2016 13:46:QS system process) EDC: 07/12/2016 00:00 (07/15/2016 12:02:BRII [place]) : 2 (07/15/2016 12:02:BRII [place]) Para: 1 (07/15/2016 12:02:BRII [place]) Term: 1 (07/15/2016 12:02:BRII [place]) Livin (07/15/2016 12:02:BRII [place]) Cesareans: 0 (07/15/2016 12:02:BRII [place]) VBACs: 0 (07/15/2016 12:02:BRII [place]) Ectopic: 0 (07/15/2016 12:02:BRII [place]) Multiple Births: 0 (07/15/2016 12:02:BRII [place]) Baby, Number in Womb: 1 (07/15/2016 12:02:Triny Torres, [facility]) CARE Primary Solar Installer: [facility] (07/15/2016 12:02:Triny Torres, [facility]) Month of 1st Visit: december (07/15/2016 12:02:Triny Torres, [facility]) Adequate Care: Yes (07/15/2016 12:02:Triny Torres, [facility]) Prepregnancy Weight (lb): 208 (07/15/2016 12:02:Triny Torres, RN) Prepregnancy Weight (kg): 94.5 (07/15/2016 12:02:QS system process) Height (in): 60 (07/15/2016 13:12:QS system process) ALLERGIES Medication Allergy: No (07/15/2016 12:02:Triny Torres [facility]) Medication Allergies: No Known Allergies (07/15/2016) (07/15/2016 13:12:QS system process) Medication Allergies: No Known Allergies (01/15/2016) (05/11/2016 13:46:QS system process) Latex Allergy: No Latex Allergies (07/15/2016 12:02:Triny Camp, RNC) Food Allergies: none (07/15/2016 12:02:Gladis Newell RN) Environmental Allergies: none (07/15/2016 12:02:Gladis Neewll RN) COMMUNICATION Primary Language: Slovenian (07/15/2016 12:02:Triny Torres, RNC) Medical Tx Preferred Language: Slovenian (07/15/2016 12:02:Triny Torres, RNC) Communication Barrier(s): None (07/15/2016 12:02:Triny Camp, RNC) DEMOGRAPHICS Address: [address] [place] [id number] (05/11/2016 13:46:QS system process) Zipcode: [address] (05/11/2016 13:46:QS system process) Home (05/11/2016 13:46:QS system process) Work (05/11/2016 13:46:QS system process) N: [phone] (05/11/2016 13:46:QS system process) Next of Kin Name: BISMARK RINCON (05/11/2016 13:46:QS system process) Next of Kin (05/11/2016 13:46:QS system process) Next of Kin Relationship: SPO (05/11/2016 13:46:QS system process) Date of : 1990 (05/11/2016 13:46:QS system process) Marital Status: Single (05/11/2016 13:46:QS system process) Sex: Female (05/11/2016 13:46:QS system process) Occupation: Other (07/15/2016 12:02:BRII [place]) Race: (05/11/2016 13:46:QS system process) Ethnicity: Non- or (05/11/2016 13:46:QS system process) Sabianist: None (05/11/2016 13:46:QS system process) Education: 12 (07/15/2016 12:02:BRII [place]) FOB Involved: N/A (07/15/2016 12:02:BRII [place]) Father of Baby Name: Bismark (07/15/2016 12:02:BRII [place]) DRUG AND ALCOHOL USE Alcohol: No (07/15/2016 12:02:BRII [place]) Cigarettes: Never Smoker. [id number] (07/15/2016 12:02:BRII [place]) Marijuana: No (07/15/2016 12:02:BRII [place]) Cocaine: No (07/15/2016 12:02:BRII [place]) Other Illicit Drugs: No (07/15/2016 12:02:Triny Camp, [facility]) VACCINE HISTORY Influenza Vaccine: Yes (07/15/2016 12:02:Triny Camp, [facility]) Pneumococcal Vaccine: No (07/15/2016 12:02:Triny Camp, [facility]) Tetanus Vaccine: Yes (07/15/2016 12:02:Triny Camp, [facility]) Tdap Vaccine: Yes (07/15/2016 12:02:Triny [place], [facility]) Hepatitis B Vaccine: Uncertain (07/15/2016 12:02:Triny Camp, [facility]) 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: [facility] (07/15/2016 12:02:Triny Torres [facility]) Feeding Preference: Breast (07/15/2016 12:02:Triny Torres [facility]) Benefit of Breast Feed Discussed: Yes (07/15/2016 12:02:Triny Torres, [facility]) Circumcision: N/A (07/15/2016 12:02:Triny Torres [facility]) Classes Attended: No (07/15/2016 12:02:BRII [place]) Tubal Ligation: No (07/15/2016 12:02:BRII [place]) Tubal Authorization Signed: N/A (07/15/2016 12:02:BRII [place]) Consent: N/A (07/15/2016 12:02:BRII [place]) Consent Signed: N/A (07/15/2016 12:02:BRII [place]) Pain Management Plans: Epidural (07/15/2016 12:02:BRII [place]) Plans for Labor and Delivery: None (07/15/2016 12:02:BRII [place]) Support Person: Bismark Rincon (07/15/2016 12:02:BRII [place]) Support Person Relationship: (07/15/2016 12:02:BRII [place]) Cultural/Spritual Practice: No (07/15/2016 12:02:BRII [place]) Spir/Cult Dietary Needs: No (07/15/2016 12:02:BRII [place]) LIVING SITUATION/DISCHARGE PLAN Living Arrangements: House (07/15/2016 12:02:BRII [place]) Adequate Access to:: Electric; Heat; Refrigeration; Plumbing/Running water; Phone; Transportation (07/15/2016 12:02:BRII [place]) WIC Program: Yes (07/15/2016 12:02:BRII [place]) Discharge Inspector Rag Sorting Person: Bess Stanton (07/15/2016 12:02:BRII [place]) Person to Help after Discharge: Bess Stanton (07/15/2016 12:02:BRII [place]) Currently Using Commun Resources: Yes (07/15/2016 12:02:BRII [place]) Specify Current Resource Used: Medicaid, WIC (07/15/2016 12:02:BRII [place]) Outside Agency/Short Filler Bunch 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: No (07/15/2016 12:02:BRII [place]) Car Seat for Discharge: Yes (07/15/2016 12:02:BRII [place]) Adoption Requested: No (07/15/2016 12:02:BRII [place]) Pt Contact w/ Post : N/A (07/15/2016 12:02:BRII [place]) LABS Blood Type: O Positive (07/15/2016 12:02:Rica Patton RN) Hemoglobin: 10.1 L (07/16/2016 12:17:QS system process) Hemoglobin: 10.1 L (07/15/2016 15:51:QS system process) Hematocrit: 30.2 L (07/16/2016 12:17:QS system process) Hematocrit: 30.5 L (07/15/2016 15:51:QS system process) MCV: 80 (07/16/2016 12:17:QS system process) MCV: 80 (07/15/2016 15:51:QS system process) Group Beta Strep: positive (07/15/2016 12:02:Rica Patton RN) Gonorrhea: Negative (07/15/2016 12:02:Rica Patton RN) Chlamydia: Negative (Annotations: Data stored by CPN on behalf of user) (07/15/2016 12:02:Rica Patton RN) RPR/VDRL: Nonreactive (07/15/2016 12:02:Rica Patton RN) Hepatitis B: Negative (07/15/2016 12:02:Rica Patton RN) Rubella: Immune (07/15/2016 12:02:Rica Patton RN) OB/PREVIOUS HISTORY Previous Procedures: Ultrasound; NST (07/15/2016 12:02:BRII [place]) Current Procedures: Ultrasound; NST (07/15/2016 12:02:BRII [place]) History of Previous : No (07/15/2016 12:02:BIRI [place]) History of Gestational Diabetes: No (07/15/2016 12:02:BRII [place]) History of PIH: No (07/15/2016 12:02:BRII [place]) History of Incompetent Cervix: No (07/15/2016 12:02:BRII [place]) History of Placenta Previa/Abrup: No (07/15/2016 12:02:BRII [place]) History of Macrosomia: No (07/15/2016 12:02:BRII [place]) History of IUGR: No (07/15/2016 12:02:BRII [place]) History of Hemorrhage: No (07/15/2016 12:02:BRII [place]) History of Loss/Stillborn: No (07/15/2016 12:02:BRII [place]) History of : No (07/15/2016 12:02:BRII [place]) History of D (Rh) Sensitization: No (07/15/2016 12:02:BRII [place]) History Recurrent Loss/Stillborn: No (07/15/2016 12:02:BRII [place]) History Depression/PP Depression: Yes (07/15/2016 12:02:BRII [place]) History of Uterine Anomaly/JUAN PABLO: No (07/15/2016 12:02:BRII [place]) History of Infertility: No (07/15/2016 12:02:BRII [place]) History of ART Treatment: No (07/15/2016 12:02:BRII [place]) History of JUAN PABLO: No (07/15/2016 12:02:BRII [place]) Comments Obstetrical History: G1- 2008 male pp depression G2- no complaints (07/15/2016 12:02:BRII [place]) MEDICAL HISTORY Med Hx Diabetes: No (07/15/2016 12:02:BRII [place]) Med Hx Hypertension: No (07/15/2016 12:02:BRII [place]) Med Hx Heart Disease: No (07/15/2016 12:02:BRII [place]) Med Hx Autoimmune Disorder: No (07/15/2016 12:02:BRII [place]) Med Hx Kidney Disease/UTI: No (07/15/2016 12:02:BRII [place]) Med Hx Neurologic/Epilepsy: No (07/15/2016 12:02:BRII [place]) Med Hx Psychiatric Disorders: Yes (07/15/2016 12:02:BRII [place]) Med Hx Hepatitis/Liver Disease: No (07/15/2016 12:02:BRII [place]) Med Hx Varicosities/Phlebitis: No (07/15/2016 12:02:BRII [place]) Med Hx Thyroid Dysfunction: No (07/15/2016 12:02:BRII [place]) Med Hx Trauma/Violence: No (07/15/2016 12:02:BRII [place]) Med Hx Blood Transfusion: No (07/15/2016 12:02:BRII [place]) Med Hx Pulmonary (Asthma,TB): No (07/15/2016 12:02:BRII [place]) Med Hx Breast: No (07/15/2016 12:02:BRII [place]) 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 (07/15/2016 12:02:BRII [place]) Med Hx Hospitalization/Surgery: Yes (07/15/2016 12:02:BRII [place]) Med Hx Anesthetic Complications: No (07/15/2016 12:02:BRII [place]) Med Hx Abnormal Pap Smear: No (07/15/2016 12:02:BRII [place]) Other Medical Diseases: No (07/15/2016 12:02:BRII [place]) Med Hx Significant Family Hx: No (07/15/2016 12:02:BRII [place]) Details of Med/Surg Hx: Bowel blockage with appendectomy 1997 (07/15/2016 12:02:BRII [place]) INFECTIOUS HISTORY Inf Hx Gonorrhea: No (07/15/2016 12:02:BRII [place]) Inf Hx Chlamydia: No (07/15/2016 12:02:BRII [place]) Inf Hx Syphilis: No (07/15/2016 12:02:Triny Torres [facility]) Inf Hx HIV/AIDS: No (07/15/2016 12:02:Triny Torres [facility]) Inf Hx Human Papilloma Virus: No (07/15/2016 12:02:Triny Torres [facility]) Inf Hx Pt/Partner Genital Herpes: No (07/15/2016 12:02:Triny Torres [facility]) Inf Hx Tuberculosis/Exposure: No (07/15/2016 12:02:Triny Torres [facility]) Inf Hx Hepatitis B,C: No (07/15/2016 12:02:Triny Torres [facility]) Inf Hx Rash or Viral Illness: No (07/15/2016 12:02:Triny Torres [facility]) GENETIC HISTORY Gen Hx Age >=35 at ANTONIA: No (07/15/2016 12:02:Triny Torres [facility]) Gen Hx Thalassemia: No (07/15/2016 12:02:Triny Torres [facility]) Gen Hx Congenital Heart Defect: No (07/15/2016 12:02:Triny Torres [facility]) Gen Hx Neural Tube Defect: No (07/15/2016 12:02:Triny Torres [facility]) Gen Hx Down's Syndrome: No (07/15/2016 12:02:Triny Torres [facility]) Gen Hx Xavier-Sachs: No (07/15/2016 12:02:Triny Torres [facility]) Gen Hx Shailesh: No (07/15/2016 12:02:Triny Torres [facility]) Gen Hx Familial Dysautonomia: No (07/15/2016 12:02:BRII [place]) Gen Hx Sickle Cell Disease/Trait: No (07/15/2016 12:02:BRII [place]) Gen Hx Hemophilia/Blood Disorder: No (07/15/2016 12:02:BRII [place]) Gen Hx Muscular Dystrophy: No (07/15/2016 12:02:BRII [place]) Gen Hx Cystic Fibrosis: No (07/15/2016 12:02:BRII [place]) Gen Hx Huntingtons Chorea: No (07/15/2016 12:02:BRII [place]) Gen Hx Mental Retardation/Autism: No (07/15/2016 12:02:BRII [place]) Gen Hx Tested for Fragile X: No (07/15/2016 12:02:BRII [place]) Gen Hx Other Inher/Chromosomal: No (07/15/2016 12:02:BRII [place]) Gen Hx Maternal Metabolic DO: No (07/15/2016 12:02:BRII [place]) Gen Hx Pt Father or FOB Defect: No (07/15/2016 12:02:BRII [place]) Gen Hx Other Genetic History: No (07/15/2016 12:02:BRII [place]) Gen Hx Drugs/Meds since LMP: Yes (07/15/2016 12:02:Gladis Newell RN)
[2016-07-17] MEDS: IBUPROFEN 800 MG TABLET PO SCH (06:07)
[2016-07-17 06:50] LABS: HEMATOCRIT 28.3 % (36.0-47.0); HEMOGLOBIN 9.5 g/dL (12.0-15.5); HGB HCT DIFFERENCE 0.2; MEAN CORPUSCULAR HEMOGLOBIN 27.1 pg (27.0-33.4); MEAN CORPUSCULAR HGB CONC 33.6 g/dL (32.0-36.0); MEAN CORPUSCULAR VOLUME 81 fl (80-97); RED BLOOD COUNT 3.51 10^6/uL (3.72-5.28); RED CELL DISTRIBUTION WIDTH 16.6 % (11.5-14.0); WHITE BLOOD COUNT 11.6 10^3/uL (4.0-10.5)
--- NOTE | 2016-07-17 08:16 | PDOC DISCHARGE SUMMARY ---
Final Diagnosis Discharge Date: 07/17/16 - Final Diagnosis (1) Vaginal delivery Is this a current diagnosis for this admission?: Yes (2) Acute blood loss anemia Is this a current diagnosis for this admission?: Yes Discharge Data - Discharge Medication Home Medications: Buspirone HCl [Buspar 10 mg Tablet] 2 tab PO DAILY 07/15/16 Zolpidem Tartrate [Ambien 5 mg Tablet] 1 tab PO QHS 07/15/16 Docusate Sodium [Colace 100 mg Capsule] 100 mg PO BID #60 capsule 07/17/16 Ferrous Sulfate [Feosol 325 mg Tablet] 325 mg PO BID #60 tablet 07/17/16 Ibuprofen [Motrin 800 mg Tablet] 800 mg PO Q8 #90 tablet 07/17/16 Gestational Age: 40.3 Reason(s) for Admission: Onset of Labor, Group B Strep Positive Procedures: NST Intrapartum Procedure(s): Spontaneous Vaginal Delivery - Data Baby 1 Male at 1 minute: 8 at 5 minutes: 9 Home with Mother: Yes Complications: No - Diagnosis Test Laboratory: Temp Pulse Resp BP Pulse Ox 97.3 F 76 18 125/75 99 07/16/16 20:30 07/16/16 20:30 07/16/16 20:30 07/16/16 20:30 07/16/16 20:30 07/15/16 07/15/16 07/16/16 11:45 15:51 12:17 RBC 3.83 3.78 Hgb 10.1 L 10.1 L Hct 30.5 L 30.2 L Urine Opiates Screen NEGATIVE 07/17/16 06:43 RBC 3.51 L Hgb 9.5 L Hct 28.3 L Urine Opiates Screen - Discharge information/Instructions Discharge Activity: Activity As Tolerated, Pelvic Rest, No tub bath Discharge Diet: Regular Disposition: HOME, SELF-CARE Follow up with: [facility] in: 4, Weeks
[2016-07-17] MEDS: PRENATAL VITAMIN W-O CA NO5/FE FUMARATE/FA CAPSULE PO SCH (09:36)
[2016-07-17] MEDS: DOCUSATE SODIUM 100 MG CAPSULE PO SCH (09:36)
[2016-07-17] MEDS: FAMOTIDINE 20 MG TABLET PO SCH (09:36)
[2016-07-17] MEDS: FERROUS SULFATE 325 MG TABLET PO SCH (09:36)
[2016-07-17] MEDS: SENNOSIDES/DOCUSATE 8.6-50 MG 1 EACH TABLET PO SCH (09:36)
--- NOTE | 2016-07-17 10:46 | L&D General Admission ---
General Admit Datetime Report Generated by N: 07/17/2016 10:45 Hemoglobin: 9.5 L (07/17/2016 06:43:QS system process) Hemoglobin: 10.1 L (07/16/2016 12:17:QS system process) Hematocrit: 28.3 L (07/17/2016 06:43:QS system process) Hematocrit: 30.2 L (07/16/2016 12:17:QS system process) MCV: 81 (07/17/2016 06:43:QS system process) MCV: 80 (07/16/2016 12:17:QS system process)
--- NOTE | 2016-07-17 10:46 | L&D Admission Assessment ---
LD ADM ASMT Datetime Report Generated by CPN: 07/17/2016 10:45 Weight (lb): 205 (07/17/2016 08:16:QS system process) Weight (lb): 205 (07/16/2016 14:37:QS system process) Weight (kg): 93.2 (07/17/2016 08:16:QS system process) Weight (kg): 93.2 (07/16/2016 14:37:QS system process) Total Wt Gain (lb): -3 (07/17/2016 08:16:QS system process) Total Wt Gain (lb): -3 (07/16/2016 14:37:QS system process) Wt Gain (kg): -1.5 (07/17/2016 08:16:QS system process) Wt Gain (kg): -1.5 (07/16/2016 14:37:QS system process) BMI: 40.0 (07/17/2016 08:16:QS system process) BMI: 40.0 (07/16/2016 14:37:QS system process)
--- NOTE | 2016-07-17 10:46 | L&D Discharge Summary ---
OB Discharge Summary Datetime Report Generated by CPN: 07/17/2016 10:45 DISCHARGE DIAGNOSIS Gestation: 40.3 Number of Babies in Womb: 1 Parity: 1
[2016-07-17 10:50] VITALS: BP 125/75
--- NOTE | 2016-07-17 16:46 | L&D Discharge Summary ---
OB Discharge Summary Datetime Report Generated by CPN: 07/17/2016 16:45 DISCHARGE DIAGNOSIS Gestation: 40.3 Number of Babies in Womb: 1 Parity: 1
--- NOTE | 2016-07-17 16:46 | L&D Flow Sheet ---
LD Flowsheet Datetime Report Generated by CPN: 07/17/2016 16:45 Datetime: 07/16/2016 08:10 Temperature (C): 36.5 (QS system process)
--- NOTE | 2016-07-17 16:46 | L&D General Admission ---
General Admit Datetime Report Generated by CPN: 07/17/2016 16:45 Hemoglobin: 9.5 L (07/17/2016 06:43:QS system process) Hematocrit: 28.3 L (07/17/2016 06:43:QS system process) MCV: 81 (07/17/2016 06:43:QS system process)
--- NOTE | 2016-07-17 22:45 | L&D General Admission ---
General Admit Datetime Report Generated by CPN: 07/17/2016 22:45 Hemoglobin: 9.5 L (07/17/2016 06:43:QS system process) Hematocrit: 28.3 L (07/17/2016 06:43:QS system process) MCV: 81 (07/17/2016 06:43:QS system process)
--- NOTE | 2016-07-17 22:45 | L&D Discharge Summary ---
OB Discharge Summary Datetime Report Generated by CPN: 07/17/2016 22:45 DISCHARGE DIAGNOSIS Gestation: 40.3 Number of Babies in Womb: 1 Parity: 1
--- NOTE | 2016-07-17 22:45 | L&D Flow Sheet ---
LD Flowsheet Datetime Report Generated by CPN: 07/17/2016 22:45 Datetime: 07/16/2016 08:10 Temperature (C): 36.5 (QS system process)
--- NOTE | 2016-07-18 04:45 | L&D General Admission ---
General Admit Datetime Report Generated by CPN: 07/18/2016 04:45 Hemoglobin: 9.5 L (07/17/2016 06:43:QS system process) Hematocrit: 28.3 L (07/17/2016 06:43:QS system process) MCV: 81 (07/17/2016 06:43:QS system process)
--- NOTE | 2016-07-18 04:45 | L&D Admission Assessment ---
LD ADM ASMT Datetime Report Generated by N: 07/18/2016 04:45 Weight (lb): 205 (07/17/2016 08:16:QS system process) Weight (kg): 93.2 (07/17/2016 08:16:QS system process) Total Wt Gain (lb): -3 (07/17/2016 08:16:QS system process) Wt Gain (kg): -1.5 (07/17/2016 08:16:QS system process) BMI: 40.0 (07/17/2016 08:16:QS system process)
--- NOTE | 2016-07-18 04:45 | L&D Discharge Summary ---
OB Discharge Summary Datetime Report Generated by CPN: 07/18/2016 04:45 DISCHARGE DIAGNOSIS Gestation: 40.3 Number of Babies in Womb: 1 Parity: 1
--- NOTE | 2016-07-18 10:45 | L&D Discharge Summary ---
OB Discharge Summary Datetime Report Generated by CPN: 07/18/2016 10:45 DISCHARGE DIAGNOSIS Gestation: 40.3 Number of Babies in Womb: 1 Parity: 1
--- NOTE | 2016-07-21 07:56 | Admission Physical ---
Datetime Report Generated by CPN: 07/21/2016 07:56 CURRENT ADMISSION Hx Assessment: The History has been Reviewed and is Current Chief Complaint: Uterine Contractions Indication for Induction: Post Dates Indication for Induction- Other: tachycardia, and questionable decelerations. Admit Plan: Admit to Unit; Initiate Labor Induction Protocol ALLERGIES Medication Allergies: No Medication Allergies: No Known Allergies (07/15/2016) Medication Allergies: No Known Allergies (01/15/2016) Latex: No Latex Allergies Food Allergies: none Environmental Allergies: none OBSTETRICAL HISTORY EDC: 07/12/2016 00:00 : 2 Para: 1 Term: 1 Ectopic: 0 Livin Cesareans: 0 VBACs: 0 Multiple Births: 0 Gestational Diabetes: No Rh Sensitization: No Incompetent Cervix: No JUAN PABLO: No Infertility: No ART Treatment: No Uterine Anomaly: No IUGR: No Hx Previous C/S: No Macrosomia: No Hx Loss/Stillborn: No PIH: No Hx : No Placenta Previa/Abruption: No Depression/PP Depression: Yes PTL/PROM: No Post Hemorrhage: No Current Procedures: Ultrasound; NST Obstetrical History Comments: G1- 2008 male pp depression G2- no complaints SEE RECORDS Alcohol: No Marijuana : No Cocaine: No Other Illicit Drugs: No Cigarettes: Never Smoker. 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 Surgery: No Heart Disease: No Hosp/Surgery: Yes Autoimmune Disorder: No Anesthetic Complications: No Kidney Disease: No Abnormal Pap Smear: No Neuro/Epilepsy: No Psychiatric Disorders: Yes Other Medical Diseases: No Hepatitis/Liver Disease: No Significant Family History: No Varicosities/Phlebitis: No Trauma/Violence : No Thyroid Dysfunction: No Medical History Comments: Bowel blockage with appendectomy 1998 INFECTIOUS HISTORY Gonorrhea: No Genital Herpes: No Chlamydia: No Tuberculosis: No Syphilis: No Hepatitis: No HIV/AIDS Exposure: No Rash or Viral Illness: No HPV: No PHYSICAL EXAM General: Normal HEENT: Normal Neurologic: Normal Thyroid: Deferred Heart: Normal Lungs: Normal Breast: Normal Back: Normal Abdomen: Normal Genitourinary Exam: Normal Extremities: Normal DTRs: Normal Pelvic Type: Adequate Physical Exam Comments: pelvis proven 7lbs 13oz Vital Signs: Reviewed VAGINAL EXAM Dilatation: 4 Dilatation: 3 Effacement: 80 Effacement: 80 Station: -1 Station: -2 Contraction Comments: irregular MEMBRANES Pooling: Positive Membranes: Intact Amniotic Fluid Color: Clear FETUS A EGA: 40.3 Monitoring: External US FHR- Baseline: 170 Variability: Moderate 6-25bpm Accelerations: 15X15 Decelerations: Variable FHR Category: Category I Estimated Weight (gm): 3400 Presentation: Vertex Admit Comment: Pt states ctx every 5-8, denies vb, leaking of fluid, states active fetus. Fetus initally tachy, but baseline settled down after IV fluids. VSS, afebrile Pt was scheduled for iol tomorrow, will admit to L _ D for induction GBS +, PCN Pitocin Pt may have epidural prn See hx for medical, hx-asthma, depression, anxiety, and panic disorder PLANS FOR LABOR AND DELIVERY Labor and Delivery: None Pain Management: Epidural Feeding Preference: Breast Benefit of Breast Feed Discussed: Yes Circumcision: N/A INFORMED CONSENT Informed Consent Obtained: Vaginal Delivery; Induction of Labor Assignment: Audrey Hammond MD Signature: with User ID: Ivan : with User ID: Ivan
--- NOTE | 2016-07-21 07:57 | Admission Physical ---
Datetime Report Generated by CPN: 07/21/2016 07:57 CURRENT ADMISSION Hx Assessment: The History has been Reviewed and is Current Chief Complaint: Uterine Contractions Indication for Induction: Post Dates Indication for Induction- Other: tachycardia, and questionable decelerations. Admit Plan: Admit to Unit; Initiate Labor Induction Protocol ALLERGIES Medication Allergies: No Medication Allergies: No Known Allergies (07/15/2016) Medication Allergies: No Known Allergies (01/15/2016) Latex: No Latex Allergies OBSTETRICAL HISTORY EDC: 07/12/2016 00:00 : 2 Para: 1 Term: 1 Ectopic: 0 Livin Cesareans: 0 VBACs: 0 Multiple Births: 0 Gestational Diabetes: No Rh Sensitization: No Incompetent Cervix: No JUAN PABLO: No Infertility: No ART Treatment: No Uterine Anomaly: No IUGR: No Hx Previous C/S: No Macrosomia: No Hx Loss/Stillborn: No PIH: No Hx : No Placenta Previa/Abruption: No Depression/PP Depression: Yes PTL/PROM: No Post Hemorrhage: No Current Procedures: Ultrasound; NST Obstetrical History Comments: G1- 2008 male pp depression G2- no complaints SEE RECORDS Alcohol: No Marijuana : No Cocaine: No Other Illicit Drugs: No Cigarettes: Never Smoker. 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 Heart Disease: No Hosp/Surgery: Yes Autoimmune Disorder: No Anesthetic Complications: No Kidney Disease: No Abnormal Pap Smear: No Neuro/Epilepsy: No Psychiatric Disorders: Yes Other Medical Diseases: No Hepatitis/Liver Disease: No Significant Family History: No Varicosities/Phlebitis: No Trauma/Violence : No Thyroid Dysfunction: No Medical History Comments: Bowel blockage with appendectomy 1998 INFECTIOUS HISTORY Gonorrhea: No Genital Herpes: No Chlamydia: No Tuberculosis: No Syphilis: No Hepatitis: No HIV/AIDS Exposure: No Rash or Viral Illness: No HPV: No PHYSICAL EXAM General: Normal HEENT: Normal Neurologic: Normal Thyroid: Deferred Heart: Normal Lungs: Normal Breast: Normal Back: Normal Abdomen: Normal Genitourinary Exam: Normal Extremities: Normal DTRs: Normal Pelvic Type: Adequate Physical Exam Comments: pelvis proven 7lbs 13oz Vital Signs: Reviewed VAGINAL EXAM Dilatation: 3 Effacement: 80 Station: -2 Contraction Comments: irregular MEMBRANES Membranes: Intact FETUS A Monitoring: External US FHR- Baseline: 170 Variability: Moderate 6-25bpm Accelerations: 15X15 Decelerations: Variable FHR Category: Category I Estimated Weight (gm): 3400 Presentation: Vertex Admit Comment: Pt states ctx every 5-8, denies vb, leaking of fluid, states active fetus. Fetus initally tachy, but baseline settled down after IV fluids. VSS, afebrile Pt was scheduled for iol tomorrow, will admit to L _ D for induction GBS +, PCN Pitocin Pt may have epidural prn See hx for medical, hx-asthma, depression, anxiety, and panic disorder PLANS FOR LABOR AND DELIVERY Labor and Delivery: None Pain Management: Epidural Feeding Preference: Breast Benefit of Breast Feed Discussed: Yes Circumcision: N/A INFORMED CONSENT Assignment: Audrey Hammond MD Signature: with User ID: Ivan : with User ID: Ivan
--- NOTE | 2016-07-27 09:54 | Delivery Summary ---
Del Sum A-C Datetime Report Generated by CPN: 07/27/2016 09:54 DELIVERY PERSONNEL DELIVERY PERSONNEL: [id number] Delivery Doctor:: Audrey Hammond MD Labor and Delivery Nurse:: Gladis Newell RNmeal cooker Nurse:: Arielle Mcintsoh RN Nursery Nurse:: Maribel Mohan RN Telemedicine Physician/COTTAGE MASTER: Shanae Oquendo MATERNAL INFORMATION Delivery Anesthesia: Epidural Medications After Delivery: Pitocin Drip 20 Units/1000ml NSS Maternal Complications: None Provider Comments: VFI delivered over intact perineum in KACI presentation. Loose nuchal cord reduced. Shoulders and body delivered without difficulty. COrd doubly clamped and cut and to maternal abdomen for NRP. Placenta delivered intact but with trailing membranes removed on crudee. 2g Ancef given. FF at U. No perineal lacerations. Good hemostasis. Mother and baby stable upon leaving the room. LABOR SUMMARY EDC: 07/12/2016 00:00 No. Babies in Womb: 1 Attempted: No Labor Anesthesia: Epidural LABOR INFORMATION Reason for Induction: Not Applicable Onset of Labor: 07/15/2016 17:35 Complete Dilatation: 07/15/2016 23:33 Oxytocin: Augmentation Group B Beta Strep: positive Antibiotics # of Doses: 3 Antibiotics Time of Last Dose: 2216 Name of Antibiotic Given: PCN Steroids Given: None Reason Steroids Not Administered: Not Applicable MEMBRANES Membranes Rupture Method: Artificial Rupture of Membranes: 07/15/2016 17:35 Length of Rupture (hr): 6.20 Amniotic Fluid Color: Clear Amniotic Fluid Amount: Small STAGES OF LABOR Stage 1 hr: 5 Stage 1 min: 58 Stage 2 hr: 0 Stage 2 min: 14 Stage 3 hr: 0 Stage 3 min: 4 Total Time in Labor hr: 6 Total Time in Labor min: 16 VAGINAL DELIVERY Episiotomy: None Laceration Extension: N/A Laceration Type: None Laceration Repair: Not Applicable BABY A INFORMATION Delivery Date/Time: 07/15/2016 23:47 Method of Delivery: Vaginal Born in Route : No : N/A Forceps: N/A Vacuum Extraction: N/A Shoulder Dystocia : No PRESENTATION/POSITION BABY A Presentation: Cephalic Cephalic Presentation: Vertex Vertex Position: Right Occipital Anterior Breech Presentation: N/A PLACENTA INFORMATION BABY A Placenta Delivery Time : 07/15/2016 23:51 Placenta Method of Delivery: Spontaneous Placenta Status: Delivered SCORES BABY A Heart Rate 1 min: >100 bpm Resp Effort 1 min: Good Cry Reflex Irritability 1 min: Cough or Sneeze or Pulls Away Muscle Tone 1 min: Active Motion Color 1 min: Blue/Pale Resuscitation Effort 1 min: Tactile Stimulation SCORE 1 MIN: 8 Heart Rate 5 min: >100 bpm Resp Effort 5 min: Good Cry Reflex Irritability 5 min: Cough or Sneeze or Pulls Away Muscle Tone 5 min: Active Motion Color 5 min: Body [place], Extremities Blue SCORE 5 MIN: 9 INFORMATION BABY A Gestational Age at Delivery: 40.3 Gestational Status: Full Term- 39- 40.6 Weeks Outcome : Liveborn Infant Condition : Stable Infant Sex: Female IDENTIFICATION BABY A Verification Date/Time: 07/15/2016 23:56 ID Band Number: [id number] Mother's Name Verified: Yes Infant RN Verifying : Silvina Allen, RNC Additional Verifying Personnel: D Yuliya, US WEIGHT/LENGTH BABY A Infant Birthweight (gm): 3640 Infant Weight (lb): 8 Weight (oz): 0 Length (in): 20.25 Infant Length (cm): 51.44 CORD INFORMATION BABY A No. Cord Vessels: 3 Nuchal Cord : Around Neck x1, Loose Cord Blood Taken: Yes-For Eval (Mom's Blood Type - or O+) Suction: Mouth; Nose ASSESSMENT BABY A Skin to Skin: Yes Skin to Skin Time (min): 30 Infant Care By: Fahad Mohan RN Transferred To: Remains with Mother SIGNATURES Signature: with User ID: [email or web address]
== END 2016-07-17 11:47 | disposition home or self-care (01) | DRG 775 ==
LOC: LC 11:33 → LR 14:40 → 2S 07-16 10:05
PROVIDERS: ADMIT Student in an Organized Health Care Education/Training Program; ATTEND Student in an Organized Health Care Education/Training Program
PROC: 10E0XZZ Delivery of Products of Conception, External Approach (ICD-10-PCS; principal; 2016-07-16)
DX: O48.0 Post-term pregnancy (principal); D62 Acute posthemorrhagic anemia; O99.824 Streptococcus B carrier state complicating childbirth; O76 Abnormality in fetal heart rate and rhythm complicating labor and delivery; O99.344 Other mental disorders complicating childbirth; O69.81X0 Labor and delivery complicated by cord around neck, without compression, not applicable or unspecified; F41.8 Other specified anxiety disorders; O75.89 Other specified complications of labor and delivery; J45.909 Unspecified asthma, uncomplicated; O99.02 Anemia complicating childbirth; Z3A.40 40 weeks gestation of pregnancy; Z37.0 Single live birth
CPT/HCPCS: 36415; 59025; 80307; 81005; 85025; 85027; 86592; 86850; 86900; 86901; J0690; J2540; J2590; J3490

== ENCOUNTER 2017-10-20 18:46 | Emergency (ER) | payer SELFPAY ==
[2017-10-20 18:52] VITALS: BP 116/83
[2017-10-20] MEDS ORDERED: DEXAMETHASONE SOD PHOS INJ 10 MG/1 ML VIAL IM ONE (20:40)
--- NOTE | 2017-10-20 20:44 | ER Document Report ---
ED Respiratory Problem - General Chief Complaint: Cold Symptoms Stated Complaint: COUGH/CHEST PAIN Time Seen by Provider: 10/20/17 19:51 Mode of Arrival: Ambulatory Information source: Patient Notes: 27-year-old female presents to ED for cough congestion wheezing with the comfort to the chest when she coughs. She states this been going on for about a week and a half. He states she has a history of asthma. She states she has nebulizer albuterol that she uses at home. Alert and oriented respirations regular and unlabored speaking in full sentences. TRAVEL OUTSIDE OF THE [place] IN LAST 30 DAYS: No - HPI Patient complains to provider of: Asthma, Cough, Short of breath Onset: Last week Duration: Intermittent episodes Initiating Event: URI Quality of pain: Achy Severity: Mild Pain Level: 2 Context: Hx asthma Cough: Nonproductive Sputum amount: None Associated symptoms: Congestion, Cough, PND, Runny nose, Wheezing Similar symptoms previously: Yes Recently seen / treated by doctor: No - Related Data Allergies/Adverse Reactions: No Known Allergies Allergy (Verified 07/15/16 13:11) Past Medical History - General Information source: Patient - Social History Smoking Status: Never Smoker Cigarette use (# per day): No Chew tobacco use (# tins/day): No Smoking Education Provided: No Frequency of alcohol use: Occasional Drug Abuse: Bath salts 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 Lives with: Family Family History: Reviewed & Not Pertinent Patient has suicidal ideation: No Patient has homicidal ideation: No - Past Medical History Cardiac Medical History: Reports: None Pulmonary Medical History: Reports: Hx Asthma EENT Medical History: Reports: None Neurological Medical History: Reports: None Endocrine Medical History: Reports: None Renal/ Medical History: Reports: None Malignancy Medical History: Reports: None GI Medical History: Reports: Other - Intestinal blockage as a child Musculoskeletal Medical History: Reports Hx Musculoskeletal Trauma - Fractured wrist Skin Medical History: Reports None Psychiatric Medical History: Reports: Hx Anxiety, Hx Depression Traumatic Medical History: Reports: None Infectious Medical History: Reports: None Past Surgical History: Reports: Hx Abdominal Surgery - intestine, Hx Appendectomy - Immunizations Immunizations up to date: Yes Hx Diphtheria, Pertussis, Tetanus Vaccination: Yes Review of Systems - Review of Systems Constitutional: No symptoms reported EENT: Nose discharge, Sinus discharge Cardiovascular: No symptoms reported Respiratory: Cough, Short of breath, Wheezing Gastrointestinal: No symptoms reported Genitourinary: No symptoms reported Female Genitourinary: No symptoms reported Musculoskeletal: No symptoms reported Skin: No symptoms reported Hematologic/Lymphatic: No symptoms reported Neurological/Psychological: No symptoms reported -: Yes All other systems reviewed and negative Physical Exam - Vital signs Vitals: Temp Pulse Resp BP Pulse Ox 98.9 F 93 17 116/83 97 10/20/17 18:51 10/20/17 18:51 10/20/17 18:51 10/20/17 18:51 10/20/17 18:51 Interpretation: Normal - General General appearance: Appears well, Alert - HEENT Head: Normocephalic, Atraumatic Eyes: Normal Pupils: PERRL Ears: Normal External canal: Normal Tympanic membrane: Normal Sinus: Normal Nasal: Purulent discharge, Swelling Mouth/Lips: Normal Mucous membranes: Normal Pharynx: Post nasal drainage Neck: Normal - Respiratory Respiratory status: No respiratory distress Chest status: Nontender Breath sounds: Normal Chest palpation: Normal - Cardiovascular Rhythm: Regular Heart sounds: Normal auscultation Murmur: No - Abdominal Inspection: Normal, Healed incision Distension: No distension Bowel sounds: Normal Tenderness: Nontender Organomegaly: No organomegaly - Back Back: Normal, Nontender - Extremities General upper extremity: Normal inspection, Nontender, Normal color, Normal ROM , Normal temperature General lower extremity: Normal inspection, Nontender, Normal color, Normal ROM , Normal temperature, Normal weight bearing. No: Rakan's sign - Neurological Neuro grossly intact: Yes Cognition: Normal Orientation: AAOx4 Javier Coma Scale Eye Opening: Spontaneous [place] Coma Scale Verbal: Oriented [place] Coma Scale Motor: Obeys Commands [place] Coma Scale Total: 15 Speech: Normal Motor strength normal: LUE, RUE, LLE, RLE Sensory: Normal - Psychological Associated symptoms: Normal affect, Normal mood - Skin Skin Temperature: Warm Skin Moisture: Dry Skin Color: Normal Course - Re-evaluation Re-evalutation: 10/20/17 21:35 Chest x-ray was negative. Patient was given report of x-ray instructed to follow-up with a primary doctor. Patient was treated with Decadron and written a prescription for the albuterol nebulizers. She does have the signs and symptoms of upper respiratory infection with a history of asthma. She states she is almost out of the medication for her nebulizer. - Vital Signs Vital signs: Temp Pulse Resp BP Pulse Ox 98.9 F 93 17 116/83 97 10/20/17 18:51 10/20/17 18:51 10/20/17 18:51 10/20/17 18:51 10/20/17 18:51 - Diagnostic Test Radiology reviewed: Image reviewed, Reports reviewed Discharge - Discharge Clinical Impression: URI (upper respiratory infection) Qualifiers: URI type: unspecified URI Qualified Code(s): J06.9 - Acute upper respiratory infection, unspecified Condition: Stable Disposition: HOME, SELF-CARE Instructions: Family Physicians / Practices Additional Instructions: UPPER RESPIRATORY ILLNESS: You have a viral infection of the respiratory passages -- a "cold." This common infection causes nasal congestion, drainage, and often sore throat and cough. It is highly contagious. The disease usually lasts about 10 to 14 days. There is no "cure" for the viral infection -- it must run its course. If there is a complication, such as bacterial infection in the nose, sinuses, middle ear, or bronchial tubes, antibiotics may be required. The antibiotics won't affect the virus. Drink plenty of fluids. A humidifier may help. An expectorant medication or decongestant may make you more comfortable. Use acetaminophen or ibuprofen for fever or aches. See the doctor if fever persists over two days, if there is any significant worsening of your symptoms, or if you simply fail to improve as expected. DECONGESTANT MEDICATION: A decongestant medicine has been suggested. Often this medicine is combined in the same tablet with an antihistamine or expectorant. This type of medicine is helpful in treating a bad cold or sinus condition, as well as in treatment of the nasal congestion of hay fever. It is not of much benefit for lung infections. Decongestant medicines are related to stimulants. They can cause an increase in blood pressure and heart rate. Persons with heart disease and high blood pressure should not take decongestants without discussing this with the physician. If you develop palpitations, chest pain, headache, or tremors, stop the medicine and consult your physician. COUGH-SUPPRESSANT & EXPECTORANT MEDICATION: You are to use a cough medication as needed for relief of symptoms. This medicine is a combination of an expectorant (to make the mucous thinner and more easily "coughed up") and a cough suppressant (to reduce the frequency of coughing). The cough-suppressant medicine is related to narcotics. You may experience mild nausea and sleepiness. Some patients who are very sensitive to narcotics may have stomach pain from this medicine. Taking the medicine with food reduces these side effects. Do not drive or work with machinery until you know how this medicine affects you. The expectorant should have no side effects. Iodine-containing expectorants (such as organidin) should not be taken by persons with active thyroid disease unless approved by your doctor. Call the doctor if you develop shortness of breath, hives, rash, itching, lightheadedness, or severe nausea and vomiting. INHALED BRONCHODILATORS: You have received a treatment of and/or prescription for an inhaled bronchodilator -- a medication which stimulates the airways in the lung to dilate. This improves the flow of air in asthma, bronchitis, and emphysema. These medicines have some similarity to adrenaline, and can cause similar side effects: shakiness, racing heart, and a sense of nervousness. These side effects decrease with time. Contact your doctor if these side effects are severe. Do not over-use the medicine. Too-frequent use of the inhaler may make it ineffective. Call your doctor if the inhaler is not controlling your symptoms at the prescribed doses. STEROID MEDICATION: You have been given an injection of or oral medicine of the cortisone/ steroid class. This medication is used to control inflammation or allergy. Evan t is usually only given for a short period of time, until the acute process subsides. There are usually no side effects from short-term use of cortisone-like medications. Some persons feel an increased sense of well-being and are not sleepy at bedtime. Long-term use of cortisone medications is best avoided, unless required for a severe condition. If your condition does not remit, or relapses after the course of corticosteroid medication, you should consult your physician. USE OF ACETAMINOPHEN (Tylenol): Acetaminophen may be taken for pain relief or fever control. It's much safer than aspirin, offering a wider range of "safe" dosages. It is safe during . Some brand names are Tylenol, Panadol, Datril, Anacin 3, Tempra, and Liquiprin. Acetaminophen can be repeated every four hours. The following are maximum recommended dosages: >89 pounds or adults 650 mg to 900 mg Acetaminophen can be repeated every four hours. Maximum dose not to exceed 4000 mg a day. FOLLOW-UP CARE: If you have been referred to a physician for follow-up care, call the physician s office for an appointment as you were instructed or within the next two days. If you experience worsening or a significant change in your symptoms, notify the physician immediately or return to the Emergency Department at any time for re-evaluation. Prescriptions: Albuterol Sulfate [Albuterol Sulfate 2.5mg/3 mL] 2.5 mg IH Q4 PRN #[id number] [email or web address] PRN Reason: For Wheezing
--- NOTE | 2017-10-20 20:45 | RADIOLOGY REPORT (SQ) ---
EXAM DESCRIPTION: CHEST 2 VIEWS COMPLETED DATE/TIME: 10/20/2017 8:32 pm REASON FOR STUDY: cough wheezing COMPARISON: None. EXAM PARAMETERS: NUMBER OF VIEWS: two views TECHNIQUE: Digital Frontal and Lateral radiographic views of the chest acquired. RADIATION DOSE: NA LIMITATIONS: none FINDINGS: LUNGS AND PLEURA: No opacities, masses or pneumothorax. No pleural effusion. MEDIASTINUM AND HILAR STRUCTURES: No masses or contour abnormalities. HEART AND VASCULAR STRUCTURES: Heart normal size. No evidence for failure. BONES: No acute findings. HARDWARE: None in the chest. OTHER: No other significant finding. IMPRESSION: NO ACUTE RADIOGRAPHIC FINDING IN THE CHEST. TECHNICAL DOCUMENTATION: JOB ID: [id number] [place]-72 2010 [employer]- All Rights Reserved Reading location - IP/workstation name: [email or web address]
== END 2017-10-20 22:00 | disposition home or self-care (01) ==
LOC: ER 18:46
DX: J06.9 Acute upper respiratory infection, unspecified (principal); R07.9 Chest pain, unspecified
CPT/HCPCS: 99283; 96372; 71046; J1100

== ENCOUNTER → 2020-04-05 | Outpatient (CLI) | payer SELFPAY ==
--- NOTE | 2020-04-05 10:39 | ER RDC ASSESSMENT REPORT ---
Intake - In the Last 14 days Have you traveled outside [place]?: No Have you been in close contact with someone CONFIRMED: Yes Worked in Healthcare?: No - Symptoms Subjective Fever([place] feverish): No Chills: No Muscule Aches: No Runny Nose: No Sore Throat: No Cough (New or worsening chronic cough): Yes Shortness of breath: No Nausea or Vomiting: No Headache: No Abdominal Pain: No Diarrhea(3 or more loose stools in last 24 hours): No - Do you have any of the following Chronic lung disease: Asthma or emphysema or COPD: No Cystic Fibrosis: No Diabetes: No High Blood Pressure: No Cardiovascular Disease: No Chronic Kidney Disease: No Chronic Liver Disease: No Chronic blood disorder like Sickle Cell Disease: No Weak immune system due to disease or medication: No Neurologic condition that limits movement: No Developmental delay - Moderate to Severe: No Recent (within past 2 weeks) or current : No Morbid Obesity (>100 pounds over ideal weight): No - Objective Temperature: 98.5 F Pulse Rate: 92 Respiratory Rate: 16 Blood Pressure: 128/77 O2 Sat by Pulse Oximetry: 97 Objective: Patient is a well-appearing 29-year-old female, who presents today for COVID-19 screening. Disposition: Home; Selfcare General - General Stated Complaint: Upper respiratory symptoms Information source: Patient Notes: The patient was evaluated during the global COVID-19 pandemic. That diagnosis was suspected/considered upon initial presentation. Their evaluation, treatment, and testing was consistent with current guidelines for patients who present with complaints or symptoms that may be related to COVID-19. Patient reports having close contact exposure to a COVID-19 lab confirmed positive individual. - HPI Patient complains to provider of: Upper respiratory symptoms Onset: Other - 2 days ago Onset/Duration: Persistent Quality of pain: No pain Severity: None Pain Level: Denies Associated symptoms: Nonproductive cough Exacerbated by: Denies Relieved by: Denies Similar symptoms previously: No Recently seen / treated by doctor: No - Related Data Allergies/Adverse Reactions: No Known Allergies Allergy (Verified 07/15/16 13:11) Past Medical History - General Information source: Patient - Social History Smoking Status: Never Smoker Cigarette use (# per day): No Chew tobacco use (# tins/day): No Smoking Education Provided: No Frequency of alcohol use: None Drug Abuse: None 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 Lives with: Family Family History: Reviewed & Not Pertinent Patient has suicidal ideation: No Patient has homicidal ideation: No Pulmonary Medical History: Reports: Hx Asthma Renal/ Medical History: Denies: Hx Kidney Stones, Hx Peritoneal Dialysis Musculoskeletal Medical History: Reports Hx Musculoskeletal Trauma - Fractured wrist Psychiatric Medical History: Reports: Hx Anxiety, Hx Depression Past Surgical History: Reports: Hx Abdominal Surgery - intestine, Hx Appendectomy Physical Exam - General General appearance: Appears well In distress: None Notes: PHYSICAL EXAMINATION: GENERAL: Well-appearing with No Acute Distress noted. HEAD: Atraumatic, Normocephalic. EYES: Sclera anicteric, Conjunctiva are pink and moist. ENT: Nares patent. Moist mucous membranes. NECK: Normal range of motion, supple without lymphadenopathy. LUNGS: CTAB and equal. No wheezes rales or rhonchi. HEART: Regular rate and rhythm without murmurs. ABDOMEN: Soft, nontender, normal bowel sounds, no guarding. EXTREMITIES: Normal range of motion, no pitting edema. No cyanosis. BACK: No midline or CVA tenderness. No step-off or deformity. NEUROLOGICAL: Cranial nerves grossly intact. Normal speech. Normal gait. PSYCH: Calm, Cooperative, and answers questions appropriately. Normal mood and affect. SKIN: Warm, Dry, Normal color and Turgor, No obvious lesions or rash noted. Diagnostic Results Laboratory Results: Patient advised at this time they are considered a Person Under Investigation (PUI) for the COVID-19 Coronavirus. They have been made aware it is currently taking 3 to 5 days to receive their results. Patient advised The [facility] Department will call to notify them of a POSITIVE result, and an [facility] steam flattener will call to notify them of a NEGATIVE result. Patient Education/Counseling Counseling/Education: Patient presents with upper respiratory symptoms worrisome for possible COVID- 19. Patient does not have symptoms worrisome as an emergency such as difficulty breathing, shortness of breath, chest pain, pressure, confusion or cyanosis. Patient appears suitable for discharge. Patient's vital signs are stable and patient is nontoxic in appearance. Good return precautions have been discussed with patient, patient verbalized understanding and is agreeable with discharge plan of care at this time. Patient provided COVID-19 discharge instructions to include: As a person under investigation for COVID-19, the [place] department of Health and Human Services, division of public health advises you to adhere to the following guidance until your test results are reported to you. If your test result is positive, you will receive additional information from your provider and your local health department at that time. Remain at home until you are cleared by the health provider or public health authorities. Keep a log of visitors to your home, notify any visitors to your home of your isolation status. If you plan to move to a new address or leave the county, notify the local health department in your County. Call your doctor or seek care if you have an urgent medical need. Before seeking medical care, call ahead to get instructions from the provider before arriving at the medical office clinic or hospital. Notify them that you are being tested for the virus that causes COVID-19 so that arrangements can be made, as necessary, to prevent transmission to others in the healthcare setting. Next, notify the local health department in your county. If a medical emergency arises and you need to call 911, inform dispatch and the first responders that you are being tested for the virus that causes COVID-19. Next, notify the local health department in your county. Guidance for worsening S/SX: For worsening symptoms, patient has been advised to contact their Primary Care Provider, or go to the nearest Emergency Department. RDC Discharge - Discharge Clinical Impression: COVID-19 Screening URI (upper respiratory infection) Qualifiers: URI type: unspecified URI Qualified Code(s): J06.9 - Acute upper respiratory infection, unspecified Condition: Stable Disposition: Home; Selfcare
[2020-04-05 10:40] VITALS: BP 128/77
== END ==
LOC: RDC 09:03
PROVIDERS: ATTEND Nurse Practitioner Family
DX: U07.1 COVID-19 (principal); J06.9 Acute upper respiratory infection, unspecified; R05 Cough; Z87.09 Personal history of other diseases of the respiratory system
CPT/HCPCS: 87635; 99202; 99211; C9803